=== PATIENT | male | born 1965 | race Caucasian/White ===

== ENCOUNTER → 2017-01-27 | Outpatient (CLI) | payer OTHER ==
--- NOTE | 2017-01-27 14:54 | RADIOLOGY REPORT (SQ) ---
EXAM DESCRIPTION: CHEST PA/LAT COMPLETED DATE/TIME: 01/27/2017 1:07 pm REASON FOR STUDY: NONSPECIFIC REACTION TO SKIN TEST W/O ACTIVE TUBERCULOSIS COMPARISON: 04/09/2015. EXAM PARAMETERS: NUMBER OF VIEWS: two views TECHNIQUE: Digital Frontal and Lateral radiographic views of the chest acquired. RADIATION DOSE: NA LIMITATIONS: none FINDINGS: LUNGS AND PLEURA: No opacities, masses or pneumothorax. No pleural effusion. MEDIASTINUM AND HILAR STRUCTURES: No masses or contour abnormalities. HEART AND VASCULAR STRUCTURES: Heart normal size. No evidence for failure. BONES: No acute findings. HARDWARE: None in the chest. OTHER: No other significant finding. IMPRESSION: NO SIGNIFICANT RADIOGRAPHIC FINDING IN THE CHEST. TECHNICAL DOCUMENTATION: JOB ID: [id number] [employer]- All Rights Reserved
== END ==
LOC: RAD 12:49
PROVIDERS: ATTEND Family Medicine
DX: R76.11 Nonspecific reaction to tuberculin skin test without active tuberculosis (principal)
CPT/HCPCS: 71020

== ENCOUNTER 2019-05-22 18:32 | Emergency (ER) | payer SELFPAY ==
[2019-05-22] MEDS ORDERED: ALBUTEROL SULFATE 0.083% NEB 2.5 MG/3 ML AMPUL NEB ONE (18:55)
--- NOTE | 2019-05-22 18:56 | ER Document Report ---
ED Medical Screen (RME) - General Stated Complaint: DIFFICULTY BREATHING Time Seen by Provider: 05/22/19 18:53 Primary Care Provider: BASIM RODRIGEZ PA-C [Primary Care Provider] - Follow up as needed Mode of Arrival: Medic Information source: Patient Notes: This 53-year-old male type I diabetic with history of COPD emphysema presents emergency department with increasing shortness of breath difficulty breathing for the past couple days. EMS has been to his house twice today he received a total of 3 duo nebs and Solu-Medrol. Reports he still having a hard time breathing. Reports is difficult for him to walk he becomes very short of breath. Patient works on a mobile and people's vacation homes. He reports nobody is been home there all winter. Denies exposure to COVID-19. Denies fever vomiting diarrhea. Reports he is never been hospitalized for COPD has never been intubated. Patient is tachypneic positive rhonchi O2 sats 93%. I have greeted and performed a rapid initial assessment of this patient. A comprehensive ED assessment and evaluation of the patient, analysis of test results and completion of the medical decision making process will be conducted by additional ED providers. TRAVEL OUTSIDE OF THE [place] IN LAST 30 DAYS: No - Related Data Allergies/Adverse Reactions: No Known Allergies Allergy (Verified 10/23/13 16:12) Past Medical History - Past Medical History Cardiac Medical History: Reports: Hx Hypertension Denies: Hx Coronary Artery Disease, Hx Heart Attack Pulmonary Medical History: Denies: Hx Asthma, Hx Bronchitis, Hx COPD, Hx Pneumonia Neurological Medical History: Denies: Hx Cerebrovascular Accident, Hx Seizures Endocrine Medical History: Reports: Hx Diabetes Mellitus Type 1 Musculoskeltal Medical History: Reports Hx Arthritis - HANDS, Reports Hx Musculoskeletal Trauma Psychiatric Medical History: Reports: Hx Bipolar Disorder, Hx Depression, Hx Schizoaffective Disorder Traumatic Medical History: Reports: Hx Fractures Past Surgical History: Reports: Hx Orthopedic Surgery - left ankle - Immunizations Immunizations up to date: Yes Hx Diphtheria, Pertussis, Tetanus Vaccination: Yes Doctor's Discharge - Discharge Referrals: BASIM RODRIGEZ PA-C [Primary Care Provider] - Follow up as needed
[2019-05-22 19:24] LABS: ABSOLUTE BASOPHILS # (AUTO) 0.1 10^3/uL (0.0-0.2); ABSOLUTE EOSINOPHILS # (AUTO) 0.6 10^3/uL (0.0-0.6); ABSOLUTE MONOCYTES (AUTO) 0.9 10^3/uL (0.1-1.4); ABSOLUTE NEUT (AUTO) 6.7 10^3/uL (1.7-8.2); BASOPHILS % (AUTO) 0.7 % (0-2); EOSINOPHILS % (AUTO) 5.6 % (0-6); HEMOGLOBIN 13.9 g/dL (13.5-17.0); LYMPHOCYTES % (AUTO) 19.2 % (13-45); MEAN CORPUSCULAR HEMOGLOBIN 30.9 pg (27.0-33.4); MEAN CORPUSCULAR HGB CONC 35.6 g/dL (32.0-36.0); MEAN CORPUSCULAR VOLUME 87 fl (80-97); MONOCYTES % (AUTO) 8.5 % (3-13); PLATELET COUNT 267 10^3/uL (150-450); RED BLOOD COUNT 4.49 10^6/uL (4.35-5.55); RED CELL DISTRIBUTION WIDTH 13.4 % (11.5-14.0); TOTAL CELLS COUNTED % (AUTO) 100 %; WHITE BLOOD COUNT 10.2 10^3/uL (4.0-10.5)
[2019-05-22 19:25] LABS: APPEARANCE,URINE CLEAR; BILIRUBIN,URINE NEGATIVE (NEGATIVE); COLOR,URINE STRAW; GLUCOSE, URINE NEGATIVE (NEGATIVE); KETONES,URINE NEGATIVE (NEGATIVE); LEUKOCYTE ESTERASE,URINE NEGATIVE (NEGATIVE); NITRITE,URINE NEGATIVE (NEGATIVE); PROTEIN,URINE NEGATIVE (NEGATIVE); URINE SPECIFIC GRAVITY 1.003; UROBILINOGEN,URINE NEGATIVE mg/dL (<2.0)
[2019-05-22 19:38] LABS: ALBUMIN 4.4 g/dL (3.5-5.0); ALKALINE PHOSPHATASE 101 U/L (38-126); ANION GAP 7 (5-19); ASPARTATE AMINO TRANSFERASE 38 U/L (17-59); BILIRUBIN,TOTAL 0.3 mg/dL (0.2-1.3); BLOOD UREA NITROGEN 13 mg/dL (7-20); CALCIUM 9.2 mg/dL (8.4-10.2); CARBON DIOXIDE 30 mmol/L (22-30); CHLORIDE 102 mmol/L (98-107); GLUCOSE 141 mg/dL (75-110); POTASSIUM 4.3 mmol/L (3.6-5.0); TOTAL PROTEIN 7.6 g/dL (6.3-8.2)
--- NOTE | 2019-05-22 19:46 | RADIOLOGY REPORT (SQ) ---
EXAM DESCRIPTION: CHEST SINGLE VIEW COMPLETED DATE/TIME: 05/22/2019 7:20 pm REASON FOR STUDY: Shortness of Breath COMPARISON: 01/27/2017 EXAM PARAMETERS: NUMBER OF VIEWS: One view. TECHNIQUE: Single frontal radiographic view of the chest acquired. RADIATION DOSE: NA LIMITATIONS: None. FINDINGS: LUNGS AND PLEURA: No opacities, masses or pneumothorax. No pleural effusion. MEDIASTINUM AND HILAR STRUCTURES: No masses. Contour normal. HEART AND VASCULAR STRUCTURES: Heart normal in size. Normal vasculature. BONES: No acute findings. HARDWARE: None in the chest. OTHER: No other significant finding. IMPRESSION: NO ACUTE RADIOGRAPHIC FINDING IN THE CHEST. TECHNICAL DOCUMENTATION: JOB ID: [id number] [employer]- All Rights Reserved Reading location - IP/workstation name: [email or web address]
--- NOTE | 2019-05-22 21:34 | EKG REPORT ---
SEVERITY:- NORMAL ECG - SINUS RHYTHM : Confirmed by: Abiodun Ward MD 22-May-2019 21:33:35
[2019-05-22] MEDS ORDERED: ALBUTEROL SULFATE HFA (90 MCG/PUFF) 8 GM MDI (1 MDI/ER DISP) IH ONE (21:46)
--- NOTE | 2019-05-22 21:52 | ER Document Report ---
ED Respiratory Problem - General Chief Complaint: Shortness Of Breath Stated Complaint: DIFFICULTY BREATHING Time Seen by Provider: 05/22/19 18:53 Primary Care Provider: BASIM RODRIGEZ PA-C [NO LOCAL MD] - Follow up as needed Mode of Arrival: Medic Notes: 53-year-old man presents to the emergency department history of COPD/emphysema. For the past 2 weeks he has had increasing difficulty with wheezing and breathing. EMS came to his home today and patient initially decided he would go by car, however his symptoms worsened and EMS was called. He received DuoNeb nebulizer treatments x3 and IV Solu-Medrol 125 mg. He has slight improvement. States that his inhalers are completely empty. He did work today and note that he was using his inhaler more frequently than normal. He does not have a primary care doctor and has been getting his medications from his diabetes doctor. He denies fever, productive cough or chest pain. TRAVEL OUTSIDE OF THE [place] IN LAST 30 DAYS: No - Related Data Allergies/Adverse Reactions: No Known Allergies Allergy (Verified 10/23/13 16:12) Past Medical History - General Information source: Patient - Social History Smoking Status: Unknown if Ever Smoked Family History: None Patient has suicidal ideation: No Patient has homicidal ideation: No - Past Medical History Cardiac Medical History: Reports: Hx Hypertension Denies: Hx Coronary Artery Disease, Hx Heart Attack Pulmonary Medical History: Denies: Hx Asthma, Hx Bronchitis, Hx COPD, Hx Pneumonia Neurological Medical History: Denies: Hx Cerebrovascular Accident, Hx Seizures Endocrine Medical History: Reports: Hx Diabetes Mellitus Type 1 Musculoskeletal Medical History: Reports Hx Arthritis - HANDS, Reports Hx Musculoskeletal Trauma Psychiatric Medical History: Reports: Hx Bipolar Disorder, Hx Depression, Hx Schizoaffective Disorder Traumatic Medical History: Reports: Hx Fractures Past Surgical History: Reports: Hx Orthopedic Surgery - left ankle - Immunizations Immunizations up to date: Yes Hx Diphtheria, Pertussis, Tetanus Vaccination: Yes Review of Systems - Review of Systems Notes: Constitutional: Negative for fever. HENT: Negative for sore throat. Eyes: Negative for visual changes. Cardiovascular: Negative for chest pain. Respiratory: + Shortness of breath, + wheezing.. Gastrointestinal: Negative for abdominal pain, vomiting or diarrhea. Genitourinary: Negative for dysuria. Musculoskeletal: Negative for back pain. Skin: Negative for rash. Neurological: Negative for headaches, weakness or numbness. 10 point ROS negative except as marked above and in HPI. Physical Exam - Vital signs Vitals: Resp Pulse Ox 18 94 05/22/19 18:36 05/22/19 18:36 - Notes Notes: PHYSICAL EXAMINATION: Physical Exam: General: Well-nourished well-developed 53-year-old man in no acute distress HEENT: NC/AT, pupils equal round and reactive to light, MM moist,nares clear, oropharynx clear, airway patent Neck: supple, no adenopathy, no masses. Good range of motion Lungs: Prolonged expiratory phase with end expiratory wheezing, no rales no rhonchi CVS: Regular rate and rhythm no murmur gallop or rub Abdomen: Soft, active, nontender, no masses, no hepatosplenomegaly Ext: No edema, clubbing or cyanosis. Neuro: Alert and responsive, moving all 4 extremities on command, cranial nerves intact, no focal findings Skin: Intact no open lesions, no rash PSYCH: Normal mood, normal affect. Course - Re-evaluation Re-evalutation: 05/22/19 21:53 Patient notes that he is feeling much better after the nebulizer treatment and steroids. He is on a sliding scale insulin at home, he is out of his inhalers and also requesting a DuoNeb for his nebulizer at home. I have asked him to follow-up with his primary doctor, patient notes that he has no insurance and cannot afford to see a primary care doctor. I have given him information regarding the [facility]. - Vital Signs Vital signs: Temp Pulse Resp BP Pulse Ox 97.7 F 15 155/79 H 91 L 05/22/19 18:59 05/22/19 21:01 05/22/19 20:00 05/22/19 21:01 - Laboratory Result Diagrams: 05/22/19 19:01 05/22/19 19:01 Laboratory results interpreted by me: 05/22/19 19:01 Glucose 141 H 05/22/19 21:54 I have reviewed laboratory data and used this information for the treatment decisions regarding the patient. - Diagnostic Test Radiology reviewed: Pending, Image reviewed, Reports reviewed - This x-ray: No acute cardiopulmonary findings. - EKG Interpretation by Me EKG shows normal: Sinus rhythm - Rate 89, no acute ST or T wave abnormalities, normal EKG. Discharge - Discharge Clinical Impression: COPD with exacerbation, Diffuse wheezing Condition: Good Disposition: HOME, SELF-CARE Instructions: Chronic Obstructive Lung Disease ([facility]) Additional Instructions: You were treated for COPD exacerbation in the emergency department, you given a prescription for albuterol inhaler and DuoNeb nebulizer solution. He is follow- up with your doctor regarding COPD. If your symptoms worsen or if you have other concerns you may return to the emergency department. HOME CARE INSTRUCTIONS & INFORMATION: Thank you for choosing us for your medical needs. We hope you're satisfied with the care you received. After you leave, you must properly care for your problem and, at the same time, observe its progress. Any condition can change. Some illnesses can change rapidly over hours or days. If your condition worsens, return to the Emergency Department or see your physician promptly. ABOUT YOUR X-RAYS AND EKG'S: If you had an EKG or X-rays taken, they have been read by the Emergency Physician. The X-rays and EKG's will also be read by a Radiologist or Civil Service Worker within 24 hours. If discrepancies are noted, you will be notified by telephone. Please be certain the ED has a correct telephone number & address where you can be reached. Also, realize that some fractures or abnormalities do not show up on initial X-rays. If your symptoms continue, see your physician. ABOUT YOUR LABORATORY TEST: If you had laboratory tests, the results have been reviewed by the Emergency Physician. Some test results (for example cultures) may not be available for several days. You will be contacted if any test result shows you need additional treatment. Please be certain the ED has a correct telephone number and address where you can be reached. ABOUT YOUR MEDICATIONS: You will receive instructions on how to take your medicine on the prescription label you receive. Additional information may be provided by the Pharmacy. If you have questions afterwards, call the ED for clarification or further instructions. Some prescribed medications may cause drowsiness. Do not perform tasks such as driving a car or operating machinery without consulting your Pharmacist. If you feel you need a refill of pain medication, your condition will need re-evaluation. Please do not call for a refill of any medication. ABOUT YOUR SIGNATURE: Signature of this document acknowledges to followin. Understanding that you received emergency treatment and that you may be released before al medical problems are known or treated. Please be certain the ED has a correct phone number & address where you can be reached. 2. Acknowledgement that you will arrange for follow-up care as recommended. 3. Authorization for the Emergency Physician to provide information to your follow-up Physician in order to maximize your care. AT ANY TIME, IF YOUR SYMPTOMS CHANGE SIGNIFICANTLY OR WORSEN OR YOU DEVELOP NEW SYMPTOMS, RETURN TO THE EMERGENCY DEPARTMENT IMMEDIATELY FOR RE-EVALUATION. OUR GOAL IS TO PROVIDE EXCELLENT MEDICAL CARE! WE HOPE THAT WE HAVE MET YOUR EXPECTATIONS DURING YOUR EMERGENCY DEPARTMENT VISIT AND THAT YOU FEEL YOU HAVE RECEIVED EXCELLENT CARE! Prescriptions: Ipratropium/Albuterol Sulfate [Duoneb 3 ml Ampul] 3 ml NEB NOW 14 Days #60 vial.neb Albuterol Sulfate [Proair HFA Inhalation Aerosol 8.5 gm MDI] 2 puff IH Q4H PRN #1 mdi PRN Reason: Referrals: BASIM RODRIGEZ PA-C [NO LOCAL MD] - Follow up as needed [facility] [Provider Group] - Follow up as needed
[2019-05-22 22:12] VITALS: BP 156/78
== END 2019-05-22 22:11 | disposition home or self-care (01) ==
LOC: ER 18:32
DX: J44.1 Chronic obstructive pulmonary disease with (acute) exacerbation (principal); R06.00 Dyspnea, unspecified; I10 Essential (primary) hypertension
CPT/HCPCS: 93005; 94640; 99285; 36415; 85025; 80053; 81001; 83880; 71045; 93010; J3490

== ENCOUNTER 2019-08-21 14:14 | Inpatient (IN) | payer SELFPAY ==
[2019-08-21 14:44] LABS: ABSOLUTE BASOPHILS # (AUTO) 0.1 10^3/uL (0.0-0.2); ABSOLUTE EOSINOPHILS # (AUTO) 0.1 10^3/uL (0.0-0.6); ABSOLUTE LYMPHOCYTES (AUTO) 1.6 10^3/uL (0.5-4.7); ABSOLUTE MONOCYTES (AUTO) 0.5 10^3/uL (0.1-1.4); ABSOLUTE NEUT (AUTO) 9.4 10^3/uL (1.7-8.2); BASOPHILS % (AUTO) 0.5 % (0-2); EOSINOPHILS % (AUTO) 1.3 % (0-6); HEMATOCRIT 39.8 % (37.9-51.0); HEMOGLOBIN 13.7 g/dL (13.5-17.0); LYMPHOCYTES % (AUTO) 13.4 % (13-45); MEAN CORPUSCULAR HGB CONC 34.4 g/dL (32.0-36.0); MEAN CORPUSCULAR VOLUME 90 fl (80-97); MONOCYTES % (AUTO) 4.2 % (3-13); PLATELET COUNT 233 10^3/uL (150-450); RED BLOOD COUNT 4.42 10^6/uL (4.35-5.55); SEGMENTED NEUTROPHILS % (AUTO) 80.6 % (42-78); TOTAL CELLS COUNTED % (AUTO) 100 %; WHITE BLOOD COUNT 11.7 10^3/uL (4.0-10.5)
[2019-08-21 15:03] LABS: ALBUMIN 4.2 g/dL (3.5-5.0); ALKALINE PHOSPHATASE 91 U/L (38-126); ANION GAP 7 (5-19); ASPARTATE AMINO TRANSFERASE 57 U/L (17-59); BILIRUBIN,TOTAL 0.4 mg/dL (0.2-1.3); BLOOD UREA NITROGEN 34 mg/dL (7-20); CALCIUM 9.3 mg/dL (8.4-10.2); CARBON DIOXIDE 27 mmol/L (22-30); CHLORIDE 98 mmol/L (98-107); GLUCOSE 312 mg/dL (75-110); TOTAL PROTEIN 7.1 g/dL (6.3-8.2)
[2019-08-21 15:27] LABS: INTERNATIONAL RATION (INR) 0.84; PROTHROMBIN TIME 11.5 SEC (11.4-15.4)
[2019-08-21 15:28] LABS: PARTIAL THROMBOPLASTIN TIME 25.2 SEC (23.5-35.8)
--- NOTE | 2019-08-21 15:34 | RADIOLOGY REPORT (SQ) ---
EXAM DESCRIPTION: CHEST SINGLE VIEW IMAGES COMPLETED DATE/TIME: 08/21/2019 3:19 pm REASON FOR STUDY: SOB COMPARISON: AP view of the chest from 05/22/2019. EXAM PARAMETERS: NUMBER OF VIEWS: One view. TECHNIQUE: An AP view of the chest was obtained. RADIATION DOSE: NA LIMITATIONS: None. FINDINGS: LUNGS AND PLEURA: No consolidation, pleural effusion or pneumothorax. MEDIASTINUM AND HILAR STRUCTURES: No mediastinal or hilar contour abnormality. HEART AND VASCULAR STRUCTURES: The cardiac silhouette and pulmonary vasculature are within normal pizarro its. BONES: No acute findings. HARDWARE: None in the chest. OTHER: No other finding. IMPRESSION: No acute cardiopulmonary process. TECHNICAL DOCUMENTATION: JOB ID: [id number] 2010 [employer]- All Rights Reserved Reading location - IP/workstation name: [email or web address]
[2019-08-21] MEDS ORDERED: IPRATROPIUM/ALBUTEROL 0.5-2.5 MG/3 ML AMPUL NEB ONE (15:41)
--- NOTE | 2019-08-21 15:47 | ER Document Report ---
ED General - General Chief Complaint: COPD Exacerbation Stated Complaint: COPD EXACERBATION Time Seen by Provider: 08/21/19 14:41 Mode of Arrival: Ambulatory Information source: Patient Notes: Patient is a 53-year-old male presents the emergency department with concern for possible COPD exacerbation. Patient states he has been having increasing shortness of breath over the last few days. He denies any swelling. He denies any cough or fever. He does report being diagnosed with COPD a few months ago, he was hospitalized about 1 month ago at [facility] for a COPD exacerbation. Patient was also complaining of abdominal swelling that he states started about a month ago. He reports having normal bowel movements. He denies the use of any alcohol. EMS gave 2 duo nebs and 125 mg of Solu-Medrol IV. Patient reports he is not feeling any better. TRAVEL OUTSIDE OF THE [place] IN LAST 30 DAYS: No - Related Data Allergies/Adverse Reactions: No Known Allergies Allergy (Verified 08/21/19 14:30) Home Medications: gabapentin, albuterol, lsinopril, cortizone shots, prednisone, citalopram. Past Medical History - General Information source: Patient - Social History Smoking Status: Former Smoker Frequency of alcohol use: None - Former Drug Abuse: None Family History: None Patient has homicidal ideation: No - Past Medical History Cardiac Medical History: Reports: Hx Hypertension Denies: Hx Coronary Artery Disease, Hx Heart Attack Pulmonary Medical History: Reports: Hx COPD Denies: Hx Asthma, Hx Bronchitis, Hx Pneumonia Neurological Medical History: Denies: Hx Cerebrovascular Accident, Hx Seizures Endocrine Medical History: Reports: Hx Diabetes Mellitus Type 1 Musculoskeletal Medical History: Reports Hx Arthritis - HANDS, Reports Hx Musculoskeletal Trauma Psychiatric Medical History: Reports: Hx Bipolar Disorder, Hx Depression, Hx Schizoaffective Disorder Traumatic Medical History: Reports: Hx Fractures Past Surgical History: Reports: Hx Orthopedic Surgery - left ankle - Immunizations Immunizations up to date: Yes Hx Diphtheria, Pertussis, Tetanus Vaccination: Yes Review of Systems - Review of Systems Constitutional: denies: Chills, Fever EENT: No symptoms reported Cardiovascular: Dyspnea Respiratory: Cough - Patient denies cough but he is coughing during my exam, Short of breath Gastrointestinal: Abdomen distended Genitourinary: No symptoms reported Male Genitourinary: No symptoms reported Musculoskeletal: No symptoms reported Skin: No symptoms reported Hematologic/Lymphatic: No symptoms reported Neurological/Psychological: No symptoms reported -: Yes All other systems reviewed and negative Physical Exam - Vital signs Vitals: Resp Pulse Ox 20 97 08/21/19 14:22 08/21/19 14:22 - Notes Notes: PHYSICAL EXAMINATION: GENERAL: Well-appearing, well-nourished and in no acute distress. HEAD: Atraumatic, normocephalic. EYES: Pupils equal round and reactive to light, extraocular movements intact, sc erika anicteric, conjunctiva are normal. ENT: Nares patent, oropharynx clear without exudates. Moist mucous membranes. NECK: Normal range of motion, supple without lymphadenopathy LUNGS: Breath sounds clear to auscultation bilaterally and equal. No wheezes rales or rhonchi. HEART: S1-S2 present, tachycardic. ABDOMEN: Large, firm, round, distended abdomen. Musculoskeletal: Normal range of motion, no pitting or edema. No cyanosis. NEUROLOGICAL: Cranial nerves grossly intact. Normal speech. Normal sensory, motor exams PSYCH: Normal mood, normal affect. SKIN: Warm, Dry, normal turgor, no rashes or lesions noted. Course - Re-evaluation Re-evalutation: 08/21/19 15:43 Patient appears well, nontoxic, no acute distress noted. He is not tachypneic and not hypoxic. He is alert, oriented, speaking in full and complete sentences. He does have diminished lung sounds however he does not appear to be in any acute distress. He does have a large round swollen abdomen that is very tight and firm. He states this is been evolving over the last month. He has never been diagnosed with ascites or any liver problems. He denies any current alcohol use, states he quit drinking years ago. EKG reviewed by me shows a s inus tachycardia, rate 102, QTc 412, no ST segment elevations or depressions to suggest ischemia. He has already had 2 albuterol treatments at home, two albuterol/Atrovent treatments in the ambulance and 125 mg of Solu-Medrol IV. I will give him another DuoNeb and plan to get a CT abdomen pelvis to evaluate the abdominal swelling. CT abdomen pelvis unremarkable, labs reassuring. Patient continues to have dyspnea on exertion however whenever he is resting in the room he is not hypoxic or tachypneic. He is mildly tachycardic due to the breathing treatments that were given earlier. 08/21/19 20:07 Nursing staff has ambulated the patient with a pulse ox. Patient did maintain oxygen saturation in the low 90s however he was very tachypneic and short of breath with any exertion. I called and spoke with the night hospitalist, Dr. Curiel who graciously agreed to admit the patient for COPD exacerbation. - Vital Signs Vital signs: Temp Pulse Resp BP Pulse Ox 98.7 F 105 H 24 H 141/64 H 95 08/21/19 14:30 08/21/19 14:30 08/21/19 17:00 08/21/19 15:01 08/21/19 18:00 - Laboratory Result Diagrams: 08/21/19 14:25 08/21/19 14:25 Laboratory results interpreted by me: 08/21/19 08/21/19 08/21/19 14:25 14:25 15:32 WBC 11.7 H Absolute Neuts (auto) 9.4 H Seg Neutrophils % 80.6 H VBG pH 7.43 H VBG pCO2 34.2 L Sodium 132.4 L BUN 34 H Glucose 312 H ALT 94 H Discharge - Discharge Clinical Impression: COPD (chronic obstructive pulmonary disease) Qualifiers: COPD type: unspecified COPD Qualified Code(s): J44.9 - Chronic obstructive pulmonary disease, unspecified Condition: Stable Disposition: ADMITTED INPATIENT Admitting Provider: Veena (Hospitalist) Unit Admitted: Medical Floor
[2019-08-21 15:53] LABS: VENOUS BLOOD BASE EXCESS -1.3 mmol/L; VENOUS BLOOD HCO3 22.2 mmol/L (20-32); VENOUS BLOOD PCO2 34.2 mmHg (35-63); VENOUS BLOOD PH 7.43 (7.30-7.42)
--- NOTE | 2019-08-21 16:34 | RADIOLOGY REPORT (SQ) ---
EXAM DESCRIPTION: CT ABD/PELVIS WITH IV ONLY IMAGES COMPLETED DATE/TIME: 08/21/2019 4:04 pm REASON FOR STUDY: abdominal swelling NO hx of ascites COMPARISON: CT of the abdomen and pelvis without contrast from 03/23/2013. TECHNIQUE: CT scan of the abdomen and pelvis performed using helical scanning technique with dynamic intravenous contrast injection. No oral contrast. Images reviewed with lung, soft tissue, and bone windows. Reconstructed coronal and sagittal MPR images reviewed. Delayed images for evaluation of the urinary system also acquired. All images stored on PACS. All CT scanners at this facility use dose modulation, iterative reconstruction, and/or weight based d osing when appropriate to reduce radiation dose to as low as reasonably achievable (ALARA). [facility]: Dose Right [facility]: CareDose [facility]: Dose Right [facility]: Teradose 4D [facility]: EndoDex CONTRAST TYPE AND DOSE: 100 mL Omnipaque 350- low osmolar. RENAL FUNCTION: Creatinine 1.01 milligrams/deciliter. RADIATION DOSE: CT Rad equipment meets quality standard of care and radiation dose reduction techniq ues were employed. CTDIvol: 16.4 - 19.7 mGy. DLP: 2140 mGy-cm. LIMITATIONS: None. FINDINGS: LOWER CHEST: No acute findings. LIVER: The morphology of the liver is noncirrhotic. The portal veins are patent. There is no hepati c mass. SPLEEN: No splenomegaly or splenic mass. PANCREAS: No acute gross abnormality of the pancreas. GALLBLADDER: No abnormality that is apparent on CT. ADRENAL GLANDS: No mass or asymmetry. RIGHT KIDNEY AND URETER: No solid mass, hydronephrosis, nephrolithiasis, hydroureter or ureterolithia sis. LEFT KIDNEY AND URETER: No solid mass, hydronephrosis, nephrolithiasis, hydroureter or ureterolithias is. AORTA AND VESSELS: No aneurysm or dissection of the abdominal aorta. RETROPERITONEUM: No retroperitoneal adenopathy, hemorrhage or mass. BOWEL AND PERITONEAL CAVITY: No bowel obstruction, bowel wall thickening or pericolonic/ perienteric inflammation. No mesenteric adenopathy, free intraperitoneal fluid or mesenteric/ omental inflammati on. APPENDIX: Normal. PELVIS: The prostate gland measures 4.6 cm in transverse diameter. There is no urinary bladder mass. ABDOMINAL WALL: There is a subcutaneous lipomatous lesion posterior to the spinous process of the L2 vertebra that measures 3.7 x 2 cm. BONES: No acute findings. OTHER: No other finding. IMPRESSION: No acute intra-abdominal abnormality. No ascites. TECHNICAL DOCUMENTATION: JOB ID: [id number] Quality ID # [id number]: Final reports with documentation of one or more dose reduction techniques (e.g., Au tomated exposure control, adjustment of the mA and/or kV according to patient size, use of iterative reconstruction technique) 2010 [employer]- All Rights Reserved Reading location - IP/workstation name: [email or web address]
[2019-08-21] MEDS ORDERED: MAG HYDROX/AL HYDROX/SIMETH SUSP 30 ML UDCUP PO PRN (20:41)
[2019-08-21] MEDS ORDERED: PROMETHAZINE HCL INJ 25 MG/1 ML VIAL IV PRN (20:41)
[2019-08-21] MEDS ORDERED: RINGERS SOLUTION,LACTATED 1,000 ML IV PRN (20:41)
[2019-08-21] MEDS ORDERED: MAGNESIUM HYDROXIDE SUSP 30 ML UDCUP PO PRN (20:41)
[2019-08-21] MEDS ORDERED: HYDRALAZINE HCL INJ/PF 20 MG/1 ML SDV IV PRN (20:47)
[2019-08-21] MEDS ORDERED: NICOTINE 21 MG/24 HR PATCH.TD24 TD PRN (20:47)
[2019-08-21] MEDS ORDERED: GUAIFENESIN SYRP 200 MG/10 ML UDC PO PRN (20:47)
[2019-08-21] MEDS ORDERED: ACETAMINOPHEN 325 MG TABLET PO PRN (20:47)
[2019-08-21] MEDS ORDERED: LORAZEPAM INJ 2 MG/1 ML VIAL IV PRN (20:47)
[2019-08-21] MEDS ORDERED: DEXTROSE 50%-WATER 25 GM/50 ML DISP.SYRIN IV PRN ×2 (20:55)
[2019-08-21] MEDS ORDERED: GLUCAGON,HUMAN RECOMB 1 MG INJ IM PRN (20:55)
[2019-08-21] MEDS ORDERED: DEXTROSE 40% GEL 15 GM TUBE PO PRN (20:55)
[2019-08-21] MEDS: METHYLPREDNISOLONE INJ 40 MG/1 ML SDV IV SCH (22:00)
[2019-08-21] MEDS: INSULIN LISPRO 100 UNIT/ML 3 ML VIAL SUBCUT SCH (22:26)
[2019-08-21] MEDS: INSULIN GLARGINE,HUM.REC.ANLOG 1,000 UNIT/10 ML VIAL SUBCUT SCH (22:27)
[2019-08-21] MEDS: HEPARIN SOD (PORCINE) 5,000 UNIT/ML 1 ML VIAL SUBCUT SCH (22:28)
[2019-08-21] MEDS: FAMOTIDINE 20 MG TABLET PO SCH (22:28)
[2019-08-21] MEDS: MORPHINE SULFATE 10 MG/ML INJ IV PRN (23:30)
--- NOTE | 2019-08-21 23:36 | PDOC H&P ---
History of Present Illness Admission Date/PCP: 08/21/19 20:13 No local PCP Patient complains of: Dyspnea History of Present Illness: SAROJ PEREZ is a 53 year old male who presented emergency room with a 3- day history of worsened dyspnea. He admits progressively worsening constant dyspnea at rest, exacerbated by any exertion, over the last 3 days, becoming severe today. He denies other associated or accompanying signs and symptoms. He admits prior similar episodes secondary to his chronic obstructive pulmonary disease. He has not identified any additional aggravating or ameliorating factors for his dyspnea. In the emergency room he was found to have acute respiratory failure with hypoxia requiring supplemental oxygen to maintain an adequate oxygen saturation. His laboratory and radiographic evaluation was unremarkable with the exception of a white blood count of 11,700, a blood sugar of 312 and an isolated mildly elevated ALT. He received numerous nebulizer therapy treatments and intravenous steroids with mild improvement but was still unable to tolerate minimal exertion without supplemental oxygen. He was subsequently admitted to the hospital for further evaluation and treatment. Past Medical History Cardiac Medical History: Reports: Hypertension, Peripheral Vascular Disease Denies: Atrial Fibrillation, Congestive Heart Failure, Coronary Artery Disease, Myocardial Infarction, Hyperlipidema Pulmonary Medical History: Reports: Asthma, Chronic Obstructive Pulmonary Disease (COPD) - Has been on chronic prednisone 40mg daily X 2 months, Respiratory Failure Denies: Bronchitis, Pneumonia EENT Medical History: Denies: Cataracts, Ears - Hearing aids Neurological Medical History: Reports: Other - Peripheral neuropathy Denies: Hemorrhagic CVA, Ischemic CVA, Seizures Endocrine Medical History: Reports: Diabetes Mellitus Type 2 Denies: Diabetes Mellitus Type 1, Hyperthyroidism, Hypothyroidism, Obesity Renal/ Medical History: Denies: Chronic Kidney Disease, Nephrolithiasis Malignancy Medical History: Reports: None GI Medical History: Denies: Cirrhosis, Crohn's Disease, Gastroesophageal Reflux Disease, Hepatitis, Peptic Ulcer Disease, Ulcerative Colitis Musculoskeltal Medical History: Reports: Arthritis - HANDS, Other - Degenerative lumbar disc disease, spondylosis, chronic low back pain Denies: Gout Skin Medical History: Denies: Eczema, Psoriasis Psychiatric Medical History: Reports: Bipolar Disorder, Depression, General Anxiety Disorder, Schizoaffective Disorder, Tobacco Dependency Denies: Alcohol Dependency, Substance Abuse Traumatic Medical History: Reports: None Hematology: Denies: Anemia, Bleeding Tendencies Infectious Medical History: Reports: None Past Surgical History Past Surgical History: Reports: Orthopedic Surgery - left ankle Social History Information Source: Patient Lives with: Spouse/Significant other Smoking Status: Former Smoker - States he quit 2 months ago Electronic Cigarette use?: No Frequency of Alcohol Use: None Hx Recreational Drug Use: No Drugs: None Hx Prescription Drug Abuse: No - Advance Directive Resuscitation Status: Full Code Surrogate healthcare decision maker:: Jessica Perez Family History Family History: denies: CAD, DM, Hypertension, Malignancy Parental Family History Reviewed: Yes Children Family History Reviewed: No Sibling(s) Family History Reviewed.: Yes Medication/Allergy Home Medications: Insulin Aspart [Novolog Flexpen] 9 unit SUBCUT MEALS 09/19/12 Clonazepam [Klonopin 1 Mg Tablet] 2 mg PO BID 12/27/12 Citalopram Hydrobromide [Celexa 20 mg Tablet] 20 mg PO DAILY 08/21/19 Gabapentin [Neurontin 400 mg Capsule] 400 mg PO TID 08/21/19 Insulin Glargine,Hum.rec.anlog [Basaglar Kwikpen U-100] 62 units SUBCUT DAILY 08/21/19 Ipratropium/Albuterol Sulfate [Duoneb 3 ml Ampul] 3 ml NEB [id number] PRN 08/21/19 Prednisone [Deltasone 20 mg Tablet] 40 mg PO BID 08/21/19 Allergies/Adverse Reactions: No Known Allergies Allergy (Verified 08/21/19 14:30) Review of Systems Constitutional: ABSENT: chills, fever(s) Eyes: ABSENT: visual disturbances, other - Eye pain Ears: ABSENT: hearing changes, other - Ear pain Nose, Mouth, and Throat: ABSENT: headache(s), sore throat Cardiovascular: PRESENT: as per HPI, dyspnea on exertion. ABSENT: chest pain, edema, orthropnea, palpitations Respiratory: PRESENT: as per HPI, dyspnea. ABSENT: cough Gastrointestinal: PRESENT: bloating - X1 month. ABSENT: abdominal pain, constipation, diarrhea, nausea, vomiting Genitourinary: ABSENT: dysuria, hematuria Musculoskeletal: PRESENT: back pain - Chronic. ABSENT: joint swelling, muscle weakness Integumentary: ABSENT: pruritus, rash Neurological: PRESENT: numbness - Chronic peripheral neuropathy, paresthesias - Chronic peripheral neuropathy. ABSENT: confusion, convulsions, focal weakness, memory loss, syncope Psychiatric: ABSENT: anxiety, depression Endocrine: ABSENT: cold intolerance, heat intolerance Hematologic/Lymphatic: ABSENT: easy bleeding, easy bruising Allergic/Immunologic: ABSENT: seasonal rhinorrhea Physical Exam Vital Signs: Temp Pulse Resp BP Pulse Ox 98.7 F 105 H 24 H 141/64 H 95 08/21/19 14:30 08/21/19 14:30 08/21/19 17:00 08/21/19 15:01 08/21/19 18:00 Intake & Output 08/19/19 08/20/19 08/21/19 23:59 23:59 23:59 Weight 90.718 kg General appearance: PRESENT: no acute distress, cooperative, other - On supplemental oxygen via nasal cannula at the time of my evaluation, Cushingoid features of fernández facies and abdominal prominence are noted. Head exam: PRESENT: atraumatic, normocephalic Eye exam: PRESENT: conjunctiva pink. ABSENT: conjunctival injection, scleral icterus Ear exam: PRESENT: normal external ear exam. ABSENT: bleeding, drainage Mouth exam: PRESENT: dry mucosa, neck supple Neck exam: ABSENT: thyromegaly, tracheal deviation Respiratory exam: PRESENT: decreased breath sounds - Mildly decreased breath sounds noted throughout all bustamante, prolonged expiratory phas - Mildly prolonged expiratory phase noted throughout all bustamante, wheezes - Expiratory wheezes present throughout all bustamante, other - Pulmonary function restricted by cushingoid abdomen.. ABSENT: symmetrical Cardiovascular exam: PRESENT: RRR. ABSENT: clicks, gallop, rubs Pulses: PRESENT: normal radial pulses, normal dorsalis pedis pul Vascular exam: PRESENT: normal capillary refill. ABSENT: pallor GI/Abdominal exam: PRESENT: normal bowel sounds, soft Rectal exam: PRESENT: deferred Extremities exam: ABSENT: joint swelling, pedal edema Musculoskeletal exam: ABSENT: deformity, dislocation Neurological exam: PRESENT: alert, oriented to person, oriented to place, oriented to time, oriented to situation, CN II-XII grossly intact. ABSENT: motor sensory deficit Psychiatric exam: PRESENT: appropriate affect, normal mood Skin exam: PRESENT: dry, intact, warm. ABSENT: jaundice, rash, urticaria Results Laboratory Results: 08/21/19 14:25 08/21/19 14:25 08/21/19 08/21/19 08/21/19 14:25 14:25 15:32 WBC 11.7 H RBC 4.42 Hgb 13.7 Hct 39.8 MCV 90 MCH 31.0 MCHC 34.4 RDW 14.0 Plt Count 233 Seg Neutrophils % 80.6 H VBG pH 7.43 H VBG pCO2 34.2 L VBG HCO3 22.2 VBG Base Excess -1.3 Sodium 132.4 L Potassium 5.0 Chloride 98 Carbon Dioxide 27 Anion Gap 7 BUN 34 H Creatinine 1.01 Est GFR ( Amer) > 60 Glucose 312 H Calcium 9.3 Total Bilirubin 0.4 AST 57 Alkaline Phosphatase 91 Total Protein 7.1 Albumin 4.2 08/21/19 14:25 NT-Pro-B Natriuret Pep 15 Impressions: Chest X-Ray 08/21/19 14:29 IMPRESSION: No acute cardiopulmonary process. Abdomen/Pelvis CT 08/21/19 15:27 IMPRESSION: No acute intra-abdominal abnormality. No ascites. Assessment and Plan - Diagnosis (1) Acute exacerbation of chronic obstructive pulmonary disease Is this a current diagnosis for this admission?: Yes (2) Acute respiratory failure with hypoxia Is this a current diagnosis for this admission?: Yes (3) Hypertension Qualifiers: Hypertension type: essential hypertension Qualified Code(s): I10 - Essential (primary) hypertension Is this a current diagnosis for this admission?: Yes (4) Cushingoid side effect of steroids Is this a current diagnosis for this admission?: Yes (5) Diabetes mellitus type 2 in nonobese Is this a current diagnosis for this admission?: Yes - Plan Summary Summary: Patient will be admitted to the medical floor where he will receive routine supportive and symptomatic cares. He will be treated with aggressive pulmonary toilet utilizing nebulized Xopenex, Atrovent and Pulmicort. He will receive IV Solu-Medrol 40 mg every 6 hours x3 doses to complete an initial burst dose treatment. He will receive Levaquin 750 mg p.o. daily. He will receive supplemental oxygen as needed to maintain an adequate oxygen saturation, with the potential use of noninvasive airway pressure support devices if required. Before meals and at bedtime Accu-Cheks will be obtained and sliding scale insulin will be used to cover hyperglycemia with a hypoglycemic protocol in place. He will receive Ativan 1 mg IV every 4 hours as needed for anxiety or restlessness. He will receive morphine sulfate 2 to 4 mg IV every 2 hours on an as-needed basis for control of pain. His usual medications will be resumed, as appropriate, when his medication list has been verified and reconciled. A steroid taper will be prescribed according to the desires of the daytime hospitalist. - Time Time Spent with patient: 15-24 minutes Medications reviewed and adjusted accordingly: Yes Anticipated discharge: Home - Inpatient Certification Based on my medical assessment, after consideration of the patient's comorbidities, presenting symptoms, or acuity I expect that the services needed warrant INPATIENT care.: Yes I certify that my determination is in accordance with my understanding of Medicare's requirements for reasonable and necessary INPATIENT services [42 CFR 412.3e].: Yes Medical Necessity: Need Close Monitoring Due to Risk of Patient Decompensation, Need for Nebulizer Therapy and Monitoring of Response, Risk of Complication if Not Cared For in Hospital
--- NOTE | 2019-08-22 00:26 | EKG REPORT ---
SEVERITY:- OTHERWISE NORMAL ECG - SINUS TACHYCARDIA : Confirmed by: Hayley Levi 22-Aug-2019 00:25:03
[2019-08-22] MEDS: LEVALBUTEROL HCL NEB 1.25 MG/3 ML AMPUL NEB SCH ×3 (00:34→16:15)
[2019-08-22 00:35] LABS: APPEARANCE,URINE CLEAR; BILIRUBIN,URINE NEGATIVE (NEGATIVE); COLOR,URINE STRAW; GLUCOSE, URINE >=500 mg/dL (NEGATIVE); KETONES,URINE NEGATIVE (NEGATIVE); PROTEIN,URINE NEGATIVE (NEGATIVE); URINE SPECIFIC GRAVITY 1.022; UROBILINOGEN,URINE NEGATIVE mg/dL (<2.0)
[2019-08-22] MEDS: IPRATROPIUM BROMIDE 0.02% NEB 0.5 MG/2.5 ML AMPUL NEB SCH ×3 (00:35→16:15)
[2019-08-22] MEDS: METHYLPREDNISOLONE INJ 40 MG/1 ML SDV IV SCH ×2 (03:55→10:15)
[2019-08-22] MEDS: MORPHINE SULFATE 10 MG/ML INJ IV PRN ×4 (06:31→22:51)
[2019-08-22] MEDS: HEPARIN SOD (PORCINE) 5,000 UNIT/ML 1 ML VIAL SUBCUT SCH ×3 (06:32→22:50)
[2019-08-22 06:40] LABS: HEMATOCRIT 40.1 % (37.9-51.0); HEMOGLOBIN 13.5 g/dL (13.5-17.0); MEAN CORPUSCULAR HEMOGLOBIN 30.3 pg (27.0-33.4); MEAN CORPUSCULAR HGB CONC 33.7 g/dL (32.0-36.0); MEAN CORPUSCULAR VOLUME 90 fl (80-97); PLATELET COUNT 223 10^3/uL (150-450); RED BLOOD COUNT 4.47 10^6/uL (4.35-5.55); WHITE BLOOD COUNT 18.4 10^3/uL (4.0-10.5)
[2019-08-22 07:02] LABS: ALBUMIN 4.3 g/dL (3.5-5.0); ALKALINE PHOSPHATASE 77 U/L (38-126); ANION GAP 9 (5-19); ASPARTATE AMINO TRANSFERASE 38 U/L (17-59); BILIRUBIN,TOTAL 0.5 mg/dL (0.2-1.3); BLOOD UREA NITROGEN 29 mg/dL (7-20); CALCIUM 9.7 mg/dL (8.4-10.2); CARBON DIOXIDE 29 mmol/L (22-30); CHLORIDE 99 mmol/L (98-107); CHOLESTEROL 259.18 mg/dL (0-200); GLUCOSE 237 mg/dL (75-110); POTASSIUM 4.7 mmol/L (3.6-5.0); TOTAL PROTEIN 7.3 g/dL (6.3-8.2); TRIGLYCERIDES 93 mg/dL (<150)
[2019-08-22 07:13] LABS: DIRECT LDL 143 mg/dL (<100)
[2019-08-22 07:15] LABS: FREE T3 3.53 pg/mL (2.77-5.27)
[2019-08-22 07:29] LABS: THYROID STIMULATING HORMONE 0.45 uIU/mL (0.47-4.68)
[2019-08-22] MEDS: INSULIN LISPRO 100 UNIT/ML 3 ML VIAL SUBCUT SCH ×7 (07:47→22:52)
[2019-08-22] MEDS: BUDESONIDE NEB 0.5 MG/2 ML AMPUL NEB SCH ×2 (08:24→20:37)
[2019-08-22] MEDS: FAMOTIDINE 20 MG TABLET PO SCH ×2 (10:12→22:49)
[2019-08-22] MEDS: DOCUSATE SODIUM 100 MG CAPSULE PO SCH ×2 (10:12→17:36)
[2019-08-22] MEDS: CLONAZEPAM 1 MG TABLET PO SCH ×2 (10:12→17:36)
[2019-08-22] MEDS: GABAPENTIN 400 MG CAPSULE PO SCH ×3 (10:12→17:36)
[2019-08-22] MEDS: CITALOPRAM HYDROBROMIDE 20 MG TABLET PO SCH (10:13)
--- NOTE | 2019-08-22 16:08 | PDOC PROGRESS REPORT ---
Subjective Progress Note for:: 08/22/19 Subjective:: No adverse events overnight. No new complaints. Breathing has improved a little bit but he still feels a little short of breath at rest. He said he is going to apply for disability now. No fevers. His oxygen has been turned down to 2 L. Reason For Visit: ACUTE RESPIRATORY FAILURE WITH HYPOXIA, ACUTE Physical Exam Vital Signs: Temp Pulse Resp BP Pulse Ox 97.6 F 96 16 150/76 H 96 08/22/19 11:13 08/22/19 11:13 08/22/19 11:13 08/22/19 11:13 08/22/19 11:13 Intake & Output 08/21/19 08/22/19 08/23/19 06:59 06:59 06:59 Intake Total 520 240 Output Total 600 Balance -80 240 Weight 90.1 kg General appearance: PRESENT: no acute distress, cooperative, disheveled, obese Respiratory exam: PRESENT: decreased breath sounds, prolonged expiratory phas, rhonchi, symmetrical. ABSENT: accessory muscle use, crackles, tachypnea, unlabored, wheezes Cardiovascular exam: PRESENT: RRR, +S1, +S2 Pulses: PRESENT: normal carotid pulses Vascular exam: PRESENT: normal capillary refill GI/Abdominal exam: PRESENT: normal bowel sounds, soft. ABSENT: distended, guarding, rebound, tenderness Extremities exam: ABSENT: clubbing, pedal edema Musculoskeletal exam: PRESENT: normal inspection. ABSENT: deformity Neurological exam: PRESENT: alert, awake, oriented to person, oriented to place, oriented to situation Psychiatric exam: PRESENT: appropriate affect, normal mood Skin exam: PRESENT: dry, warm Results Laboratory Results: 08/22/19 06:11 08/22/19 06:11 08/22/19 08/22/19 08/22/19 00:16 06:11 06:11 WBC 18.4 H RBC 4.47 Hgb 13.5 Hct 40.1 MCV 90 MCH 30.3 MCHC 33.7 RDW 14.0 Plt Count 223 Sodium 137.4 Potassium 4.7 Chloride 99 Carbon Dioxide 29 Anion Gap 9 BUN 29 H Creatinine 0.74 Est GFR ( Amer) > 60 Glucose 237 H Calcium 9.7 Magnesium 1.9 Total Bilirubin 0.5 AST 38 Alkaline Phosphatase 77 Total Protein 7.3 Albumin 4.3 Triglycerides 93 Cholesterol 259.18 H LDL Cholesterol Direct 143 H VLDL Cholesterol 19.0 HDL Cholesterol 84 TSH Free T3 pg/mL Urine Color STRAW Urine Appearance CLEAR Urine pH 5.0 Ur Specific Brewster 1.022 Urine Protein NEGATIVE Urine Glucose (UA) >=500 H Urine Ketones NEGATIVE Urine Blood NEGATIVE Urine RBC (Auto) 1 08/22/19 06:11 WBC RBC Hgb Hct MCV MCH MCHC RDW Plt Count Sodium Potassium Chloride Carbon Dioxide Anion Gap BUN Creatinine Est GFR ( Amer) Glucose Calcium Magnesium Total Bilirubin AST Alkaline Phosphatase Total Protein Albumin Triglycerides Cholesterol LDL Cholesterol Direct VLDL Cholesterol HDL Cholesterol TSH 0.45 L Free T3 pg/mL 3.53 Urine Color Urine Appearance Urine pH Ur Specific Brewster Urine Protein Urine Glucose (UA) Urine Ketones Urine Blood Urine RBC (Auto) 08/21/19 14:25 NT-Pro-B Natriuret Pep 15 Impressions: Chest X-Ray 08/21/19 14:29 IMPRESSION: No acute cardiopulmonary process. Abdomen/Pelvis CT 08/21/19 15:27 IMPRESSION: No acute intra-abdominal abnormality. No ascites. Assessment and Plan - Diagnosis (1) Acute respiratory failure with hypoxia Is this a current diagnosis for this admission?: Yes Plan: He has been weaned down to 2 L per nasal cannula and is stable in the mid 90s there (2) Acute exacerbation of chronic obstructive pulmonary disease Is this a current diagnosis for this admission?: Yes Plan: No longer wheezing, but he still looks like he is having some difficulty with very prolonged expiratory phase so we will continue with his bronchodilators and steroids (3) Current every day smoker Is this a current diagnosis for this admission?: Yes Plan: He was smoking about a pack a day before he came in. He has been counseled regarding the deleterious effects of smoking on his overall health and has been strongly encouraged to quit immediately. (4) Diabetes mellitus type 2 in nonobese Is this a current diagnosis for this admission?: Yes Plan: Blood sugars are being exacerbated by the steroids. We got him on sliding scale coverage. (5) Hypertension Qualifiers: Hypertension type: essential hypertension Qualified Code(s): I10 - Essential (primary) hypertension Is this a current diagnosis for this admission?: Yes Plan: He is not on any antihypertensives at home according to his medication list. We will watch his blood pressures and see if he needs to be started on anything. (6) Anxiety Is this a current diagnosis for this admission?: Yes Plan: He is on Klonopin and Celexa at home - Plan Summary Summary: Patient will be admitted to the medical floor where he will receive routine supportive and symptomatic cares. He will be treated with aggressive pulmonary toilet utilizing nebulized Xopenex, Atrovent and Pulmicort. He will receive IV Solu-Medrol 40 mg every 6 hours x3 doses to complete an initial burst dose treatment. He will receive Levaquin 750 mg p.o. daily. He will receive supplemental oxygen as needed to maintain an adequate oxygen saturation, with the potential use of noninvasive airway pressure support devices if required. Before meals and at bedtime Accu-Cheks will be obtained and sliding scale insulin will be used to cover hyperglycemia with a hypoglycemic protocol in place. He will receive Ativan 1 mg IV every 4 hours as needed for anxiety or restlessness. He will receive morphine sulfate 2 to 4 mg IV every 2 hours on an as-needed basis for control of pain. His usual medications will be resumed, as appropriate, when his medication list has been verified and reconciled. A steroid taper will be prescribed according to the desires of the daytime hospitalist. - Time Time Spent with patient: 15-24 minutes
[2019-08-22] MEDS: MELATONIN 5 MG TABLET PO PRN (22:49)
[2019-08-22] MEDS: INSULIN GLARGINE,HUM.REC.ANLOG 1,000 UNIT/10 ML VIAL SUBCUT SCH (22:51)
[2019-08-23] MEDS: IPRATROPIUM BROMIDE 0.02% NEB 0.5 MG/2.5 ML AMPUL NEB SCH ×3 (00:48→16:02)
[2019-08-23] MEDS: LEVALBUTEROL HCL NEB 1.25 MG/3 ML AMPUL NEB SCH ×3 (00:48→16:02)
[2019-08-23] MEDS: HEPARIN SOD (PORCINE) 5,000 UNIT/ML 1 ML VIAL SUBCUT SCH ×3 (05:59→22:27)
[2019-08-23 06:05] LABS: HEMATOCRIT 38.8 % (37.9-51.0); HEMOGLOBIN 12.9 g/dL (13.5-17.0); MEAN CORPUSCULAR HEMOGLOBIN 30.2 pg (27.0-33.4); MEAN CORPUSCULAR HGB CONC 33.3 g/dL (32.0-36.0); MEAN CORPUSCULAR VOLUME 91 fl (80-97); PLATELET COUNT 208 10^3/uL (150-450); RED BLOOD COUNT 4.28 10^6/uL (4.35-5.55); RED CELL DISTRIBUTION WIDTH 13.9 % (11.5-14.0); WHITE BLOOD COUNT 15.7 10^3/uL (4.0-10.5)
[2019-08-23] MEDS: MORPHINE SULFATE 10 MG/ML INJ IV PRN ×3 (06:06→14:06)
[2019-08-23] MEDS: DEXTROSE 40% GEL 15 GM TUBE PO PRN ×2 (06:29→06:59)
[2019-08-23] MEDS: INSULIN LISPRO 100 UNIT/ML 3 ML VIAL SUBCUT SCH ×7 (07:38→22:25)
[2019-08-23] MEDS: BUDESONIDE NEB 0.5 MG/2 ML AMPUL NEB SCH ×2 (08:26→21:13)
[2019-08-23] MEDS: DOCUSATE SODIUM 100 MG CAPSULE PO SCH ×2 (09:54→17:04)
[2019-08-23] MEDS: CITALOPRAM HYDROBROMIDE 20 MG TABLET PO SCH (09:54)
[2019-08-23] MEDS: GABAPENTIN 400 MG CAPSULE PO SCH ×3 (09:54→17:04)
[2019-08-23] MEDS: FAMOTIDINE 20 MG TABLET PO SCH ×2 (09:55→22:27)
[2019-08-23] MEDS: CLONAZEPAM 1 MG TABLET PO SCH ×2 (09:55→17:04)
[2019-08-23] MEDS: METHYLPREDNISOLONE INJ 40 MG/1 ML SDV IV SCH ×2 (09:56→22:26)
[2019-08-23] MEDS ORDERED: MORPHINE SULFATE 10 MG/ML INJ IV PRN ×2 (10:24→10:25)
[2019-08-23] MEDS ORDERED: TRAMADOL HCL 50 MG TABLET PO PRN (16:50)
--- NOTE | 2019-08-23 18:33 | PDOC PROGRESS REPORT ---
Subjective Progress Note for:: 08/23/19 Subjective:: No adverse events overnight. No new complaints. He was on room air and his breathing looks more comfortable this morning. He got up and walked around the nurses station a little bit, but when he got back he was more short of breath and he had a prolonged hard coughing fit that took him some time to recover. While he was walking, his SPO2 on room air dropped to 86% but after a few moments at rest it recovered to 92%. He said he has been on prednisone for over a month now. He was not on any sort of maintenance COPD medication at home. He said he was on something that he thinks was Spiriva but it was very expensive and he does not have insurance. Reason For Visit: ACUTE RESPIRATORY FAILURE WITH HYPOXIA, ACUTE Physical Exam Vital Signs: Temp Pulse Resp BP Pulse Ox 97.7 F 95 16 134/55 H 95 08/23/19 15:36 08/23/19 16:36 08/23/19 16:36 08/23/19 15:36 08/23/19 16:36 Intake & Output 08/22/19 08/23/19 08/24/19 06:59 06:59 06:59 Intake Total 520 860 481 Output Total 600 Balance -80 860 481 Weight 90.1 kg 90.1 kg General appearance: PRESENT: no acute distress, cooperative, disheveled, obese Respiratory exam: PRESENT: decreased breath sounds, slightly prolonged expir atory phase, symmetrical. ABSENT: accessory muscle use, crackles, rhonchi, tachypnea, wheezes Cardiovascular exam: PRESENT: RRR, +S1, +S2 Pulses: PRESENT: normal carotid pulses Vascular exam: PRESENT: normal capillary refill GI/Abdominal exam: PRESENT: normal bowel sounds, soft. ABSENT: distended, guarding, rebound, tenderness Extremities exam: ABSENT: clubbing, pedal edema Musculoskeletal exam: PRESENT: normal inspection. ABSENT: deformity Neurological exam: PRESENT: alert, awake, oriented to person, oriented to place, oriented to situation Psychiatric exam: PRESENT: appropriate affect, normal mood Skin exam: PRESENT: dry, warm Results Laboratory Results: 08/23/19 05:48 08/22/19 06:11 08/23/19 08/23/19 05:48 05:48 WBC 15.7 H RBC 4.28 L Hgb 12.9 L Hct 38.8 MCV 91 MCH 30.2 MCHC 33.3 RDW 13.9 Plt Count 208 Magnesium 2.1 08/21/19 14:25 NT-Pro-B Natriuret Pep 15 Impressions: Chest X-Ray 08/21/19 14:29 IMPRESSION: No acute cardiopulmonary process. Abdomen/Pelvis CT 08/21/19 15:27 IMPRESSION: No acute intra-abdominal abnormality. No ascites. Assessment and Plan - Diagnosis (1) Acute respiratory failure with hypoxia Is this a current diagnosis for this admission?: Yes Plan: Resolved (2) Acute exacerbation of chronic obstructive pulmonary disease Is this a current diagnosis for this admission?: Yes Plan: I descalated his steroids. He wants to come off the prednisone, but I told him he has been on it for a month or more than he does not need to just discontinue it. We will start him on some prednisone in the morning and set him up on a taper. I am also going to try him on some scheduled Combivent that he should be able to take at home. This should not be as expensive as Spiriva. (3) Current every day smoker Is this a current diagnosis for this admission?: Yes Plan: He was smoking about a pack a day before he came in. He has been counseled regarding the deleterious effects of smoking on his overall health and has been strongly encouraged to quit immediately. (4) Diabetes mellitus type 2 in nonobese Is this a current diagnosis for this admission?: Yes Plan: Blood sugars are being exacerbated by the steroids but improved after his Solu- Medrol was scaled back. We got him on sliding scale coverage. (5) Hypertension Qualifiers: Hypertension type: essential hypertension Qualified Code(s): I10 - Essential (primary) hypertension Is this a current diagnosis for this admission?: Yes Plan: He is not on any antihypertensives at home according to his medication list. We will watch his blood pressures and see if he needs to be started on anything. (6) Anxiety Is this a current diagnosis for this admission?: Yes Plan: He is on Klonopin and Celexa at home - Plan Summary Summary: Patient will be admitted to the medical floor where he will receive routine supportive and symptomatic cares. He will be treated with aggressive pulmonary toilet utilizing nebulized Xopenex, Atrovent and Pulmicort. He will receive IV Solu-Medrol 40 mg every 6 hours x3 doses to complete an initial burst dose treatment. He will receive Levaquin 750 mg p.o. daily. He will receive supplemental oxygen as needed to maintain an adequate oxygen saturation, with the potential use of noninvasive airway pressure support devices if required. Before meals and at bedtime Accu-Cheks will be obtained and sliding scale ins ulin will be used to cover hyperglycemia with a hypoglycemic protocol in place. He will receive Ativan 1 mg IV every 4 hours as needed for anxiety or restlessness. He will receive morphine sulfate 2 to 4 mg IV every 2 hours on an as-needed basis for control of pain. His usual medications will be resumed, as appropriate, when his medication list has been verified and reconciled. A steroid taper will be prescribed according to the desires of the daytime hospitalist. - Time Time Spent with patient: 25-34 minutes
[2019-08-23] MEDS: LEVALBUTEROL HCL NEB 0.63 MG/3 ML AMPUL NEB PRN (21:13)
[2019-08-23] MEDS: MELATONIN 5 MG TABLET PO PRN (22:27)
[2019-08-23] MEDS: INSULIN GLARGINE,HUM.REC.ANLOG 1,000 UNIT/10 ML VIAL SUBCUT SCH (22:29)
[2019-08-24] MEDS: LEVALBUTEROL HCL NEB 1.25 MG/3 ML AMPUL NEB SCH ×3 (00:24→16:38)
[2019-08-24] MEDS: IPRATROPIUM BROMIDE 0.02% NEB 0.5 MG/2.5 ML AMPUL NEB SCH ×3 (00:24→16:38)
[2019-08-24 06:23] LABS: HEMATOCRIT 37.8 % (37.9-51.0); HEMOGLOBIN 12.8 g/dL (13.5-17.0); MEAN CORPUSCULAR HEMOGLOBIN 30.4 pg (27.0-33.4); MEAN CORPUSCULAR VOLUME 89 fl (80-97); PLATELET COUNT 178 10^3/uL (150-450); RED BLOOD COUNT 4.23 10^6/uL (4.35-5.55); RED CELL DISTRIBUTION WIDTH 13.6 % (11.5-14.0); WHITE BLOOD COUNT 11.3 10^3/uL (4.0-10.5)
[2019-08-24] MEDS: MORPHINE SULFATE 10 MG/ML INJ IV PRN (06:30)
[2019-08-24] MEDS: HEPARIN SOD (PORCINE) 5,000 UNIT/ML 1 ML VIAL SUBCUT SCH ×2 (06:31→13:55)
[2019-08-24] MEDS: INSULIN LISPRO 100 UNIT/ML 3 ML VIAL SUBCUT SCH ×6 (07:41→16:30)
[2019-08-24] MEDS: BUDESONIDE NEB 0.5 MG/2 ML AMPUL NEB SCH (08:22)
[2019-08-24] MEDS: GABAPENTIN 400 MG CAPSULE PO SCH ×3 (10:46→17:25)
[2019-08-24] MEDS: CLONAZEPAM 1 MG TABLET PO SCH ×2 (10:46→17:25)
[2019-08-24] MEDS: DOCUSATE SODIUM 100 MG CAPSULE PO SCH ×2 (10:46→17:25)
[2019-08-24] MEDS: CITALOPRAM HYDROBROMIDE 20 MG TABLET PO SCH (10:46)
[2019-08-24] MEDS: FAMOTIDINE 20 MG TABLET PO SCH (10:46)
[2019-08-24] MEDS: METHYLPREDNISOLONE INJ 40 MG/1 ML SDV IV SCH (10:46)
[2019-08-24] MEDS ORDERED: PREDNISONE 20 MG TABLET PO SCH (11:00)
[2019-08-24] MEDS: LEVALBUTEROL HCL NEB 0.63 MG/3 ML AMPUL NEB PRN (14:28)
--- NOTE | 2019-08-24 17:00 | PDOC DISCHARGE SUMMARY ---
Impression - Admit/DC Date/PCP Admission Date/Primary Care Provider: 08/21/19 20:13 Discharge Date: 08/24/19 - Discharge Diagnosis (1) Acute respiratory failure with hypoxia Is this a current diagnosis for this admission?: Yes (2) Acute exacerbation of chronic obstructive pulmonary disease Is this a current diagnosis for this admission?: Yes (3) Current every day smoker Is this a current diagnosis for this admission?: Yes (4) Diabetes mellitus type 2 in nonobese Is this a current diagnosis for this admission?: Yes (5) Hypertension Is this a current diagnosis for this admission?: Yes (6) Anxiety Is this a current diagnosis for this admission?: Yes - Assessment Summary: Patient will be admitted to the medical floor where he will receive routine supportive and symptomatic cares. He will be treated with aggressive pulmonary toilet utilizing nebulized Xopenex, Atrovent and Pulmicort. He will receive IV Solu-Medrol 40 mg every 6 hours x3 doses to complete an initial burst dose treatment. He will receive Levaquin 750 mg p.o. daily. He will receive supplemental oxygen as needed to maintain an adequate oxygen saturation, with the potential use of noninvasive airway pressure support devices if required. Before meals and at bedtime Accu-Cheks will be obtained and sliding scale insulin will be used to cover hyperglycemia with a hypoglycemic protocol in place. He will receive Ativan 1 mg IV every 4 hours as needed for anxiety or restlessness. He will receive morphine sulfate 2 to 4 mg IV every 2 hours on an as-needed basis for control of pain. His usual medications will be resumed, as appropriate, when his medication list has been verified and reconciled. A steroid taper will be prescribed according to the desires of the daytime hos pitalist. - Additional Information Resuscitation Status: Full Code Discharge Diet: Cardiac, Diabetic Discharge Activity: Activity As Tolerated, Balance Activity w/Rest Referrals: [facility] [Outside] (PATIENT WILL NEED TO CALL AND ESTABLISH CARE WITH CLINIC. THE CLINIC STAFF WILL SCHEDULE A TELE HEALTH APPT. DATE/TIME.) Prescriptions: Ipratropium/Albuterol Sulfate [Combivent Respimat 4 gm Mdi] 1 puff IH Q6 #1 aer.w.adap Prednisone [Deltasone 10 mg Tablet] 10 mg PO DAILY 12 Days #30 tablet Home Medications: Insulin Aspart [Novolog Flexpen] 9 unit SUBCUT MEALS 09/19/12 Clonazepam [Klonopin 1 mg Tablet] 2 mg PO BID 12/27/12 Citalopram Hydrobromide [Celexa 20 mg Tablet] 20 mg PO DAILY 08/21/19 Gabapentin [Neurontin 400 mg Capsule] 400 mg PO TID 08/21/19 Insulin Glargine,Hum.rec.anlog [Basaglar Lynnikpen U-100] 62 units SUBCUT DAILY 08/21/19 Ipratropium/Albuterol Sulfate [Duoneb 3 ml Ampul] 3 ml NEB RTQ6HP PRN 08/21/19 Ipratropium/Albuterol Sulfate [Combivent Respimat 4 gm Mdi] 1 puff IH Q6 #1 aer.w.adap 08/24/19 Prednisone [Deltasone 10 mg Tablet] 10 mg PO DAILY 12 Days #30 tablet 08/24/19 History of Present Illiness History of Present Illness: SAROJ ALFONSO is a 53 year old male who presented emergency room with a 3- day history of worsened dyspnea. He admits progressively worsening constant dyspnea at rest, exacerbated by any exertion, over the last 3 days, becoming severe today. He denies other associated or accompanying signs and symptoms. He admits prior similar episodes secondary to his chronic obstructive pulmonary disease. He has not identified any additional aggravating or ameliorating factors for his dyspnea. In the emergency room he was found to have acute respiratory failure with hypoxia requiring supplemental oxygen to maintain an adequate oxygen saturation. His laboratory and radiographic evaluation was unremarkable with the exception of a white blood count of 11,700, a blood sugar of 312 and an isolated mildly elevated ALT. He received numerous nebulizer therapy treatments and intravenous steroids with mild improvement but was still unable to tolerate minimal exertion without supplemental oxygen. He was subsequently admitted to the hospital for further evaluation and treatment. Hospital Course Hospital Course: He was kept on some IV steroids for a few days and he had some improvement. We were able to get him down to oral prednisone. He said that he has been on prednisone at home for a month and is trying to come off of it. He has not been on any sort of maintenance medication. He said that he had tried Spiriva but he could not afford it because right now he does not have insurance. He has Medicaid application pending. Every day he told me he was trying to get on disability. I have sent him a 12-day prednisone taper to his pharmacy to try to help him get off of the prednisone. I also sent him a prescription for a Combivent Respimat which should not be as expensive as Spiriva. His blood pressures were up and down but he wanted to see if he could try to lose weight once he comes off steroids to see if it helps his blood pressure. We did a 6- minute walk test and fortunately he did not require oxygen. His labs and examination were reassuring and he was discharged in stable condition. Physical Exam Vital Signs: Temp Pulse Resp BP Pulse Ox 98.6 F 88 18 153/69 H 97 08/24/19 12:00 08/24/19 16:49 08/24/19 16:49 08/24/19 12:00 08/24/19 16:49 Intake & Output 08/23/19 08/24/19 08/25/19 06:59 06:59 06:59 Intake Total 860 481 682 Balance 860 481 682 Weight 90.1 kg 90.1 kg General appearance: PRESENT: no acute distress, cooperative, disheveled, obese Respiratory exam: PRESENT: decreased breath sounds, slightly prolonged expiratory phase, symmetrical. ABSENT: accessory muscle use, crackles, rhonchi, tachypnea, wheezes Cardiovascular exam: PRESENT: RRR, +S1, +S2 Pulses: PRESENT: normal carotid pulses Vascular exam: PRESENT: normal capillary refill GI/Abdominal exam: PRESENT: normal bowel sounds, soft. ABSENT: distended, guarding, rebound, tenderness Extremities exam: ABSENT: clubbing, pedal edema Musculoskeletal exam: PRESENT: normal inspection. ABSENT: deformity Neurological exam: PRESENT: alert, awake, oriented to person, oriented to place, oriented to situation Psychiatric exam: PRESENT: appropriate affect, normal mood Skin exam: PRESENT: dry, warm Results Laboratory Results: WBC 11.3 10^3/uL (4.0-10.5) H 08/24/19 06:03 RBC 4.23 10^6/uL (4.35-5.55) L 08/24/19 06:03 Hgb 12.8 g/dL (13.5-17.0) L 08/24/19 06:03 Hct 37.8 % (37.9-51.0) L 08/24/19 06:03 MCV 89 fl (80-97) 08/24/19 06:03 MCH 30.4 pg (27.0-33.4) 08/24/19 06:03 MCHC 34.0 g/dL (32.0-36.0) 08/24/19 06:03 RDW 13.6 % (11.5-14.0) 08/24/19 06:03 Plt Count 178 10^3/uL (150-450) 08/24/19 06:03 Lymph % (Auto) 13.4 % (13-45) 08/21/19 14:25 Burnett % (Auto) 4.2 % (3-13) 08/21/19 14:25 Eos % (Auto) 1.3 % (0-6) 08/21/19 14:25 Baso % (Auto) 0.5 % (0-2) 08/21/19 14:25 Absolute Neuts (auto) 9.4 10^3/uL (1.7-8.2) H 08/21/19 14:25 Absolute Lymphs (auto) 1.6 10^3/uL (0.5-4.7) 08/21/19 14:25 Absolute Monos (auto) 0.5 10^3/uL (0.1-1.4) 08/21/19 14:25 Absolute Eos (auto) 0.1 10^3/uL (0.0-0.6) 08/21/19 14:25 Absolute Basos (auto) 0.1 10^3/uL (0.0-0.2) 08/21/19 14:25 Seg Neutrophils % 80.6 % (42-78) H 08/21/19 14:25 PT 11.5 SEC (11.4-15.4) 08/21/19 14:25 INR 0.84 08/21/19 14:25 APTT 25.2 SEC (23.5-35.8) 08/21/19 14:25 VBG pH 7.43 (7.30-7.42) H 08/21/19 15:32 VBG pCO2 34.2 mmHg (35-63) L 08/21/19 15:32 VBG HCO3 22.2 mmol/L (20-32) 08/21/19 15:32 VBG Base Excess -1.3 mmol/L 08/21/19 15:32 Sodium 137.4 mmol/L (137-145) 08/22/19 06:11 Potassium 4.7 mmol/L (3.6-5.0) 08/22/19 06:11 Chloride 99 mmol/L (98-107) 08/22/19 06:11 Carbon Dioxide 29 mmol/L (22-30) 08/22/19 06:11 Anion Gap 9 (5-19) 08/22/19 06:11 BUN 29 mg/dL (7-20) H 08/22/19 06:11 Creatinine 0.74 mg/dL (0.52-1.25) 08/22/19 06:11 Est GFR ( Amer) > 60 (>60) 08/22/19 06:11 Est GFR (MDRD) Non-Af > 60 (>60) 08/22/19 06:11 Glucose 237 mg/dL (75-110) H 08/22/19 06:11 POC Glucose 215 mg/dL (70-110) H 08/24/19 16:07 Hemoglobin A1c % 9.0 % (4.7-6.0) H 08/22/19 06:11 Calcium 9.7 mg/dL (8.4-10.2) 08/22/19 06:11 Magnesium 2.1 mg/dL (1.6-2.3) 08/24/19 06:03 Total Bilirubin 0.5 mg/dL (0.2-1.3) 08/22/19 06:11 Direct Bilirubin 0.0 mg/dL (0.0-0.4) 08/22/19 06:11 Neonat Total Bilirubin Not Reportable 08/22/19 06:11 Neonat Direct Bilirubin Not Reportable 08/22/19 06:11 Neonat Indirect Bili Not Reportable 08/22/19 06:11 AST 38 U/L (17-59) 08/22/19 06:11 ALT 99 U/L (<50) H 08/22/19 06:11 Alkaline Phosphatase 77 U/L (38-126) 08/22/19 06:11 NT-Pro-B Natriuret Pep 15 pg/mL (<125) 08/21/19 14:25 Total Protein 7.3 g/dL (6.3-8.2) 08/22/19 06:11 Albumin 4.3 g/dL (3.5-5.0) 08/22/19 06:11 Triglycerides 93 mg/dL (<150) 08/22/19 06:11 Cholesterol 259.18 mg/dL (0-200) H 08/22/19 06:11 LDL Cholesterol Direct 143 mg/dL (<100) H 08/22/19 06:11 VLDL Cholesterol 19.0 mg/dL (10-31) 08/22/19 06:11 HDL Cholesterol 84 mg/dL (>40) 08/22/19 06:11 TSH 0.45 uIU/mL (0.47-4.68) L 08/22/19 06:11 Free T3 pg/mL 3.53 pg/mL (2.77-5.27) 08/22/19 06:11 Urine Color STRAW 08/22/19 00:16 Urine Appearance CLEAR 08/22/19 00:16 Urine pH 5.0 (5.0-9.0) 08/22/19 00:16 Ur Specific [place] 1.022 08/22/19 00:16 Urine Protein NEGATIVE mg/dL (NEGATIVE) 08/22/19 00:16 Urine Glucose (UA) >=500 mg/dL (NEGATIVE) H 08/22/19 00:16 Urine Ketones NEGATIVE mg/dL (NEGATIVE) 08/22/19 00:16 Urine Blood NEGATIVE (NEGATIVE) 08/22/19 00:16 Urine Nitrite (Reflex) NEGATIVE (NEGATIVE) 08/22/19 00:16 Urine Bilirubin NEGATIVE (NEGATIVE) 08/22/19 00:16 Urine Urobilinogen NEGATIVE mg/dL (<2.0) 08/22/19 00:16 Leukocyte Esterase Rfl NEGATIVE (NEGATIVE) 08/22/19 00:16 Urine RBC (Auto) 1 /HPF 08/22/19 00:16 Urine Mucus (Auto) RARE /LPF 08/22/19 00:16 Urine Ascorbic Acid NEGATIVE (NEGATIVE) 08/22/19 00:16 08/21/19 14:25 NT-Pro-B Natriuret Pep 15 Impressions: Chest X-Ray 08/21/19 14:29 IMPRESSION: No acute cardiopulmonary process. Abdomen/Pelvis CT 08/21/19 15:27 IMPRESSION: No acute intra-abdominal abnormality. No ascites. Plan Time Spent: Greater than 30 Minutes Stroke Is this a Stroke Patient?: No Acute Heart Failure - Is this a Heart Failure Patient?: No
[2019-08-24 17:44] VITALS: BP 132/61
== END 2019-08-24 17:57 | disposition home or self-care (01) | DRG 189 ==
LOC: ER 14:14 → EH 20:13 → 4S 22:48
PROVIDERS: ADMIT Emergency Medicine; ATTEND Family Medicine
DX: J96.01 Acute respiratory failure with hypoxia (principal); J44.1 Chronic obstructive pulmonary disease with (acute) exacerbation; E24.2 Drug-induced Cushing's syndrome; E11.9 Type 2 diabetes mellitus without complications; I10 Essential (primary) hypertension; E11.51 Type 2 diabetes mellitus with diabetic peripheral angiopathy without gangrene; E66.9 Obesity, unspecified; M47.816 Spondylosis without myelopathy or radiculopathy, lumbar region; F31.9 Bipolar disorder, unspecified; F41.1 Generalized anxiety disorder; F25.9 Schizoaffective disorder, unspecified; T38.0X5A Adverse effect of glucocorticoids and synthetic analogues, initial encounter; Y92.9 Unspecified place or not applicable; F17.210 Nicotine dependence, cigarettes, uncomplicated; Z68.36 Body mass index [BMI] 36.0-36.9, adult; Z79.899 Other long term (current) drug therapy; Z79.51 Long term (current) use of inhaled steroids; Z79.52 Long term (current) use of systemic steroids; Z79.4 Long term (current) use of insulin; Z59.8 Other problems related to housing and economic circumstances
CPT/HCPCS: 36415; 71045; 74177; 80053; 80061; 81001; 82803; 82962; 83036; 83735; 83880; 84443; 84481; 85025; 85027; 85610; 85730; 93005; 93010; 94640; 99285; J1644; J1815; J2270; J2920; J3490; J7614; J7620

== ENCOUNTER 2019-09-15 22:41 | Inpatient (IN) | payer SELFPAY ==
[2019-09-15 23:01] LABS: ABSOLUTE BASOPHILS # (AUTO) 0.1 10^3/uL (0.0-0.2); ABSOLUTE EOSINOPHILS # (AUTO) 0.5 10^3/uL (0.0-0.6); ABSOLUTE LYMPHOCYTES (AUTO) 2.9 10^3/uL (0.5-4.7); ABSOLUTE MONOCYTES (AUTO) 1.2 10^3/uL (0.1-1.4); ABSOLUTE NEUT (AUTO) 8.7 10^3/uL (1.7-8.2); BASOPHILS % (AUTO) 0.5 % (0-2); EOSINOPHILS % (AUTO) 3.9 % (0-6); HEMATOCRIT 36.4 % (37.9-51.0); HEMOGLOBIN 12.3 g/dL (13.5-17.0); LYMPHOCYTES % (AUTO) 21.7 % (13-45); MEAN CORPUSCULAR HGB CONC 33.9 g/dL (32.0-36.0); MEAN CORPUSCULAR VOLUME 92 fl (80-97); MONOCYTES % (AUTO) 9.1 % (3-13); PLATELET COUNT 268 10^3/uL (150-450); RED BLOOD COUNT 3.98 10^6/uL (4.35-5.55); RED CELL DISTRIBUTION WIDTH 13.7 % (11.5-14.0); SEGMENTED NEUTROPHILS % (AUTO) 64.8 % (42-78); TOTAL CELLS COUNTED % (AUTO) 100 %; WHITE BLOOD COUNT 13.4 10^3/uL (4.0-10.5)
[2019-09-15 23:20] LABS: ALBUMIN 3.9 g/dL (3.5-5.0); ALKALINE PHOSPHATASE 76 U/L (38-126); ANION GAP 6 (5-19); ASPARTATE AMINO TRANSFERASE 23 U/L (17-59); BILIRUBIN,TOTAL 0.3 mg/dL (0.2-1.3); BLOOD UREA NITROGEN 28 mg/dL (7-20); CALCIUM 8.9 mg/dL (8.4-10.2); CARBON DIOXIDE 31 mmol/L (22-30); CHLORIDE 95 mmol/L (98-107); POTASSIUM 5.3 mmol/L (3.6-5.0); TOTAL PROTEIN 6.5 g/dL (6.3-8.2)
--- NOTE | 2019-09-15 23:30 | RADIOLOGY REPORT (SQ) ---
CLINICAL INDICATION: respiratory distress. TECHNIQUE: A single portable AP view was obtained of the chest at 2308 hours. COMPARISON: August 21, 2019. FINDINGS: The cardiomediastinal silhouette is normal. The lungs are grossly clear. No evidence of effusion or pneumothorax. Chronic parenchymal lung change. IMPRESSION: No evidence of active intrathoracic disease.
[2019-09-15 23:32] LABS: GLUCOSE 431 mg/dL (75-110)
[2019-09-15] MEDS ORDERED: INSULIN REG, HUMAN 100 UNIT/ML 3 ML VIAL (PYX) IV ONE (23:47)
[2019-09-15] MEDS ORDERED: IPRATROPIUM/ALBUTEROL 0.5-2.5 MG/3 ML AMPUL NEB ONE (23:47)
--- NOTE | 2019-09-15 23:52 | ER Document Report ---
ED General - General Chief Complaint: Respiratory Distress Stated Complaint: DIFFICULTY BREATHING Time Seen by Provider: 09/15/19 23:37 TRAVEL OUTSIDE OF THE [place] IN LAST 30 DAYS: No - HPI Notes: Patient is a 53-year-old male, former smoker, history of COPD, who presents to the emergency department for evaluation of shortness of breath. He was just recently hospitalized, finished his prednisone. He states his shortness of breath started yesterday. It got worse today. He states that his cough is s lightly worse, intermittently productive. He complains of pain in his chest and his back when he coughs, describes it as a soreness. He denies any fevers or chills. He states he has been taking his medications as prescribed. - Related Data Allergies/Adverse Reactions: No Known Allergies Allergy (Verified 08/21/19 14:30) Home Medications: Albuterol, Neurontin, NovoLog, DuoNeb, Celexa, Klonopin Past Medical History - General Information source: Patient - Social History Smoking Status: Former Smoker Frequency of alcohol use: None Drug Abuse: None Family History: denies: CAD, DM, Hypertension, Malignancy Patient has homicidal ideation: No - Past Medical History Cardiac Medical History: Reports: Hx Hypertension, Hx Peripheral Vascular Disease Denies: Hx Atrial Fibrillation, Hx Congestive Heart Failure, Hx Coronary Artery Disease, Hx Heart Attack, Hx Hypercholesterolemia Pulmonary Medical History: Reports: Hx Asthma, Hx COPD - Has been on chronic prednisone 40mg daily X 2 months, Hx Respiratory Failure Denies: Hx Bronchitis, Hx Pneumonia Neurological Medical History: Denies: Hx Cerebrovascular Accident, Hx Seizures Endocrine Medical History: Reports: Hx Diabetes Mellitus Type 2. Denies: Hx Diabetes Mellitus Type 1, Hx Hyperthyroidism, Hx Hypothyroidism GI Medical History: Denies: Hx Cirrhosis, Hx Crohn's Disease, Hx Gastroesophageal Reflux Disease, Hx Hepatitis, Hx Ulcerative Colitis Musculoskeletal Medical History: Reports Hx Arthritis - HANDS, Denies Hx Gout, Reports Hx Musculoskeletal Trauma Skin Medical History: Denies Hx Eczema, Denies Hx Psoriasis Psychiatric Medical History: Reports: Hx Bipolar Disorder, Hx Depression, Hx Schizoaffective Disorder Traumatic Medical History: Reports: Hx Fractures Infectious Medical History: Denies: Hx Hepatitis Past Surgical History: Reports: Hx Orthopedic Surgery - left ankle - Immunizations Immunizations up to date: Yes Hx Diphtheria, Pertussis, Tetanus Vaccination: Yes Physical Exam - Vital signs Vitals: Temp Pulse Resp BP Pulse Ox 98.0 F 109 H 21 H 133/78 H 100 09/15/19 22:42 09/15/19 22:42 09/15/19 22:42 09/15/19 22:42 09/15/19 22:42 Course - Re-evaluation Re-evalutation: 09/16/19 00:03 Patient presents to the emergency department for evaluation. The patient was admitted here a month ago. He was [facility]ation. It seems he finished his steroids and immediately became more short of breath. He said no fevers or chills. No nausea or vomiting. He is still wheezing on the BiPAP. Another breathing treatment is ordered. His blood sugars are markedly elevated, he is given IV insulin. This seems to be a significant COPD exacerbation. I spoke with Dr. Kong, who graciously came down and evaluated the patient. He will accept him for further care. - Vital Signs Vital signs: Temp Pulse Resp BP Pulse Ox 98.0 F 108 H 28 H 133/78 H 99 09/15/19 22:48 09/15/19 22:48 09/15/19 22:48 09/15/19 22:48 09/15/19 22:53 - Laboratory Result Diagrams: 09/15/19 22:40 09/15/19 22:40 Laboratory results interpreted by me: 09/15/19 09/15/19 22:40 22:40 WBC 13.4 H RBC 3.98 L Hgb 12.3 L Hct 36.4 L Absolute Neuts (auto) 8.7 H Sodium 131.9 L Potassium 5.3 H Chloride 95 L Carbon Dioxide 31 H BUN 28 H Glucose 431 H* - Diagnostic Test Radiology reviewed: Reports reviewed Radiology results interpreted by me: 09/16/19 00:04 Chest X-Ray 09/15/19 22:52 IMPRESSION: No evidence of active intrathoracic disease. - EKG Interpretation by Me Additional EKG results interpreted by me: 09/16/19 00:04 Sinus tachycardia with a rate of 109 bpm. Significant motion artifact in lead V2 rendering it unreadable. Otherwise, normal intervals and axis. No acute ST changes concerning for ischemia or infarction. Discharge - Discharge Clinical Impression: Acute exacerbation of chronic obstructive pulmonary disease, Diabetes mellitus type 2 in nonobese Hyperglycemia due to type 2 diabetes mellitus Qualifiers: Diabetes mellitus truck terminal manager insulin use: unspecified halfway insulin use status Qualified Code(s): E11.65 - Type 2 diabetes mellitus with hyperglycemia Condition: Stable Disposition: ADMITTED INPATIENT Admitting Provider: Dilan (Hospitalist) Unit Admitted: [facility]
[2019-09-16] MEDS ORDERED: DEXTROSE 40% GEL 15 GM TUBE PO PRN ×2 (00:37)
[2019-09-16] MEDS ORDERED: DEXTROSE 50%-WATER 25 GM/50 ML DISP.SYRIN IV PRN ×2 (00:37)
[2019-09-16] MEDS ORDERED: GLUCAGON,HUMAN RECOMB 1 MG INJ IM PRN (00:37)
[2019-09-16] MEDS ORDERED: IPRATROPIUM/ALBUTEROL 0.5-2.5 MG/3 ML AMPUL NEB PRN (00:43)
[2019-09-16] MEDS ORDERED: NORMAL SALINE 1000 ML 1,000 ML IV PRN (00:43)
[2019-09-16] MEDS ORDERED: ONDANSETRON HCL INJ/PF 4 MG/2 ML SDV IV PRN (00:43)
--- NOTE | 2019-09-16 00:52 | PDOC H&P ---
History of Present Illness History of Present Illness: SAROJ ALFONSO is a 53 year old male with a history of COPD who was discharged from this facility on August 23 and wound up back in the hospital in [place] sometime over a week ago and said he was discharged home 5 days ago, once again for an exacerbation of COPD. He was put on a short prednisone burst that ended yesterday. He said today he started having worsening shortness of breath. He is not had any fevers. He is not had any cough, he just could not get breath in. His chest x-ray is clear. He had to be put on BiPAP because of the severity of his wheezing. Past Medical History Cardiac Medical History: Reports: Hypertension, Peripheral Vascular Disease Denies: Atrial Fibrillation, Congestive Heart Failure, Coronary Artery Disease, Myocardial Infarction, Hyperlipidema Pulmonary Medical History: Reports: Asthma, Chronic Obstructive Pulmonary Disease (COPD) - Has been on chronic prednisone 40mg daily X 2 months, Respiratory Failure Denies: Bronchitis, Pneumonia Neurological Medical History: Denies: Seizures Endocrine Medical History: Reports: Diabetes Mellitus Type 2 Denies: Diabetes Mellitus Type 1, Hyperthyroidism, Hypothyroidism GI Medical History: Denies: Cirrhosis, Crohn's Disease, Gastroesophageal Reflux Disease, Hepatitis, Ulcerative Colitis Musculoskeltal Medical History: Reports: Arthritis - HANDS Denies: Gout Skin Medical History: Denies: Eczema, Psoriasis Psychiatric Medical History: Reports: Bipolar Disorder, Depression, S chizoaffective Disorder Hematology: Denies: Anemia, Bleeding Tendencies Past Surgical History Past Surgical History: Reports: Orthopedic Surgery - left ankle Social History Smoking Status: Former Smoker Frequency of Alcohol Use: None Hx Recreational Drug Use: No Drugs: None Hx Prescription Drug Abuse: No Family History Family History: denies: CAD, DM, Hypertension, Malignancy Parental Family History Reviewed: Yes Children Family History Reviewed: Yes Sibling(s) Family History Reviewed.: Yes Medication/Allergy Home Medications: Insulin Aspart [Novolog Flexpen] 9 unit SUBCUT MEALS 09/19/12 Clonazepam [Klonopin 1 mg Tablet] 2 mg PO BID 12/27/12 Citalopram Hydrobromide [Celexa 20 mg Tablet] 20 mg PO DAILY 08/21/19 Gabapentin [Neurontin 400 mg Capsule] 400 mg PO TID 08/21/19 Insulin Glargine,Hum.rec.anlog [Basaglar Kwikpen U-100] 62 units SUBCUT DAILY 08/21/19 Ipratropium/Albuterol Sulfate [Duoneb 3 ml Ampul] 3 ml NEB RTQ6HP PRN 08/21/19 Ipratropium/Albuterol Sulfate [Combivent Respimat 4 gm Mdi] 1 puff IH Q6 #1 aer.w.adap 08/24/19 Prednisone [Deltasone 10 mg Tablet] 10 mg PO DAILY 12 Days #30 tablet 08/24/19 Ipratropium/Albuterol Sulfate [Duoneb 3 ml Ampul] 3 ml NEB RTQ6 #120 [email or web address] 08/26/19 Allergies/Adverse Reactions: No Known Allergies Allergy (Verified 08/21/19 14:30) Review of Systems All systems: reviewed and no additional remarkable complaints except as stated - All systems were reviewed and were negative except as noted in the HPI Physical Exam Vital Signs: Temp Pulse Resp BP Pulse Ox 98.0 F 108 H 28 H 133/78 H 99 09/15/19 22:48 09/15/19 22:48 09/15/19 22:48 09/15/19 22:48 09/15/19 22:53 Intake & Output 09/14/19 09/15/19 09/16/19 06:59 06:59 06:59 Weight 95.254 kg General appearance: PRESENT: cooperative, disheveled, obese, other - Moderate distress Head exam: PRESENT: atraumatic Eye exam: PRESENT: EOMI, PERRLA. ABSENT: conjunctival injection, nystagmus, scleral icterus Ear exam: PRESENT: normal external ear exam Mouth exam: PRESENT: dry mucosa, neck supple Throat exam: ABSENT: post pharyngeal erythema Neck exam: PRESENT: full ROM. ABSENT: carotid bruit, JVD, lymphadenopathy, meningismus, tenderness, thyromegaly Respiratory exam: PRESENT: accessory muscle use, prolonged expiratory phas, symmetrical, tachypnea, wheezes. ABSENT: chest wall tenderness, crackles, rhonchi, unlabored Cardiovascular exam: PRESENT: +S1, +S2, tachycardia Pulses: PRESENT: normal carotid pulses Vascular exam: PRESENT: normal capillary refill GI/Abdominal exam: PRESENT: normal bowel sounds, soft. ABSENT: distended, guarding, rebound, tenderness Extremities exam: ABSENT: clubbing, pedal edema Musculoskeletal exam: PRESENT: normal inspection. ABSENT: deformity Neurological exam: PRESENT: alert, awake, oriented to person, oriented to place, oriented to situation, CN II-XII grossly intact. ABSENT: motor sensory deficit Psychiatric exam: PRESENT: anxious Skin exam: PRESENT: dry, warm, other - Generally flushed Results Laboratory Results: 09/15/19 22:40 09/15/19 22:40 09/15/19 09/15/19 22:40 22:40 WBC 13.4 H RBC 3.98 L Hgb 12.3 L Hct 36.4 L MCV 92 MCH 31.0 MCHC 33.9 RDW 13.7 Plt Count 268 Seg Neutrophils % 64.8 Sodium 131.9 L Potassium 5.3 H Chloride 95 L Carbon Dioxide 31 H Anion Gap 6 BUN 28 H Creatinine 0.96 Est GFR ( Amer) > 60 Glucose 431 H* Calcium 8.9 Total Bilirubin 0.3 AST 23 Alkaline Phosphatase 76 Total Protein 6.5 Albumin 3.9 09/15/19 22:40 Troponin I < 0.012 Impressions: Chest X-Ray 09/15/19 22:52 IMPRESSION: No evidence of active intrathoracic disease. Assessment and Plan - Diagnosis (1) Acute respiratory failure with hypoxia Is this a current diagnosis for this admission?: Yes Plan: Apparently he had been on 2 L of oxygen at home, he did not qualify for oxygen whenever he left this hospital on August 23. Currently requiring BiPAP due to his work of breathing. Will wean as tolerated. (2) Acute exacerbation of chronic obstructive pulmonary disease Is this a current diagnosis for this admission?: Yes Plan: IV Solu-Medrol, doxycycline, nebulizer treatments, supplemental O2 as needed. He was not on any home medications other than Combivent Respimat, which I do not know if he actually got filled when he left here. He said he could not afford the other medications because he did not have insurance. (3) Anxiety Is this a current diagnosis for this admission?: Yes Plan: We will continue his home medication of Klonopin (4) Hyperglycemia due to type 2 diabetes mellitus Qualifiers: Diabetes mellitus parts counterman insulin use: with mcfp use Qualified Code(s): E11.65 - Type 2 diabetes mellitus with hyperglycemia; Z79.4 - lobsterman (current) use of insulin Is this a current diagnosis for this admission?: Yes Plan: We will continue his Lantus and add a sliding scale. Diabetic diet. - Time Time Spent with patient: 35 or more minutes Anticipated discharge: Home with Homehealth Within: Other - Inpatient Certification Based on my medical assessment, after consideration of the patient's comorbidities, presenting symptoms, or acuity I expect that the services needed warrant INPATIENT care.: Yes I certify that my determination is in accordance with my understanding of Medicare's requirements for reasonable and necessary INPATIENT services [42 CFR 412.3e].: Yes Medical Necessity: Failure to Improve With Outpatient Therapy, Significant Comorbidiites Make Outpatient Treatment Too Risky, Need Close Monitoring Due to Risk of Patient Decompensation, Need For IV Fluids, Need For Continuous Telemetry Monitoring, Need for Nebulizer Therapy and Monitoring of Response, Need for IV Antibiotics, Risk of Complication if Not Cared For in Hospital
[2019-09-16] MEDS ORDERED: DOXYCYCLINE HYCLATE 100 MG in DEXTROSE 5%-WATER 250 ML IV ONE (01:15)
[2019-09-16] MEDS ORDERED: DOXYCYCLINE HYCLATE INJ 100 MG VIAL ONE (04:25)
[2019-09-16] MEDS: METHYLPREDNISOLONE INJ 40 MG/1 ML SDV IV SCH ×3 (05:25→21:26)
[2019-09-16] MEDS: HEPARIN SOD (PORCINE) 5,000 UNIT/ML 1 ML VIAL SUBCUT SCH ×3 (05:26→21:26)
[2019-09-16] MEDS: INSULIN LISPRO 100 UNIT/ML 3 ML VIAL SUBCUT SCH ×6 (08:10→21:40)
[2019-09-16] MEDS: DOXYCYCLINE HYCLATE 100 MG in DEXTROSE 5%-WATER 250 ML IV SCH ×2 (09:32→21:26)
[2019-09-16] MEDS ORDERED: INSULIN GLARGINE,HUM.REC.ANLOG 1,000 UNIT/10 ML VIAL SUBCUT SCH (10:00)
--- NOTE | 2019-09-16 11:53 | Progress Note ---
Provider Note Provider Note: Patient seen and evaluated by me this morning. Comfortable but has wheezing on exam. Patient has been on steroids for several days and seems to have recurrent exacerbation whenever taking of steroids. However, he seems to have frequent exacerbations and seems to be on only rescue inhaler and nebulizer. I discussed with him that we will need to start him on a Laba/ICS or LABA/LAMA combination. We will put him on Breo in the meantime. Frequent nebulizers every 6 hours to be continued. Continue on IV Solu-Medrol and doxycycline for COPD exacerbation.
[2019-09-16] MEDS: IPRATROPIUM/ALBUTEROL 0.5-2.5 MG/3 ML AMPUL NEB SCH ×2 (14:01→20:08)
[2019-09-16] MEDS: GABAPENTIN 400 MG CAPSULE PO SCH ×2 (14:33→21:26)
[2019-09-16] MEDS: GUAIFENESIN SYRP 200 MG/10 ML UDC PO PRN ×2 (14:33→22:39)
[2019-09-16] MEDS: FLUTICASONE NASAL SPRAY 50 MCG/SPRY 120 SPRAY/16 GM NASL SCH ×2 (14:33→21:42)
[2019-09-16] MEDS: FLUTICASONE/VILANTEROL 100-25 MCG/DOSE IH SCH (14:34)
[2019-09-16] MEDS: CLONAZEPAM 1 MG TABLET PO SCH (22:39)
[2019-09-17] MEDS: IPRATROPIUM/ALBUTEROL 0.5-2.5 MG/3 ML AMPUL NEB SCH ×4 (02:34→19:45)
[2019-09-17 06:24] LABS: HEMOGLOBIN 12.2 g/dL (13.5-17.0); MEAN CORPUSCULAR HEMOGLOBIN 30.8 pg (27.0-33.4); MEAN CORPUSCULAR HGB CONC 34.8 g/dL (32.0-36.0); MEAN CORPUSCULAR VOLUME 89 fl (80-97); PLATELET COUNT 262 10^3/uL (150-450); RED BLOOD COUNT 3.95 10^6/uL (4.35-5.55); RED CELL DISTRIBUTION WIDTH 13.3 % (11.5-14.0); WHITE BLOOD COUNT 17.8 10^3/uL (4.0-10.5)
[2019-09-17] MEDS: GABAPENTIN 400 MG CAPSULE PO SCH ×3 (06:25→21:17)
[2019-09-17] MEDS: HEPARIN SOD (PORCINE) 5,000 UNIT/ML 1 ML VIAL SUBCUT SCH ×3 (06:26→21:25)
[2019-09-17] MEDS: CITALOPRAM HYDROBROMIDE 20 MG TABLET PO SCH (06:26)
[2019-09-17] MEDS: METHYLPREDNISOLONE INJ 40 MG/1 ML SDV IV SCH ×3 (06:26→21:17)
[2019-09-17 06:44] LABS: ANION GAP 6 (5-19); BLOOD UREA NITROGEN 26 mg/dL (7-20); CALCIUM 9.1 mg/dL (8.4-10.2); CARBON DIOXIDE 27 mmol/L (22-30); CHLORIDE 100 mmol/L (98-107); GLUCOSE 389 mg/dL (75-110)
[2019-09-17] MEDS: INSULIN LISPRO 100 UNIT/ML 3 ML VIAL SUBCUT SCH ×7 (07:45→21:22)
[2019-09-17] MEDS ORDERED: INSULIN GLARGINE,HUM.REC.ANLOG 1,000 UNIT/10 ML VIAL SUBCUT SCH (10:00)
[2019-09-17] MEDS: FLUTICASONE NASAL SPRAY 50 MCG/SPRY 120 SPRAY/16 GM NASL SCH ×2 (10:18→21:17)
[2019-09-17] MEDS: CLONAZEPAM 1 MG TABLET PO SCH ×2 (10:18→21:16)
[2019-09-17] MEDS: FLUTICASONE/VILANTEROL 100-25 MCG/DOSE IH SCH (10:19)
[2019-09-17] MEDS: DOXYCYCLINE HYCLATE 100 MG in DEXTROSE 5%-WATER 250 ML IV SCH ×2 (10:19→21:17)
[2019-09-17] MEDS ORDERED: IPRATROPIUM/ALBUTEROL 0.5-2.5 MG/3 ML AMPUL NEB PRN (12:58)
--- NOTE | 2019-09-17 13:42 | PDOC PROGRESS REPORT ---
Subjective Progress Note for:: 09/17/19 Subjective:: Patient with multiple coughing jags. Still coughing up lots of mucus. The patient questions his enlarging stomach. He reports on a higher oxygen flow he is feeling better. BiPAP is at the bedside but the patient reports that he has not been wearing it. Reason For Visit: ACUTE HYPOXIC RESPIRATORY FAILURE,ACUTE Physical Exam Vital Signs: Temp Pulse Resp BP Pulse Ox 97.7 F 98 19 163/61 H 100 09/17/19 11:28 09/17/19 11:28 09/17/19 11:28 09/17/19 11:28 09/17/19 11:28 Intake & Output 09/16/19 09/17/19 09/18/19 06:59 06:59 06:59 Intake Total 60 2335 1186 Output Total 550 Balance 60 1785 1186 Weight 99.9 kg 102.1 kg General appearance: PRESENT: cooperative, mild distress, well-developed Head exam: PRESENT: atraumatic, normocephalic Eye exam: PRESENT: conjunctiva pink. ABSENT: scleral icterus Ear exam: PRESENT: normal external ear exam. ABSENT: bleeding, drainage Mouth exam: PRESENT: moist, tongue midline Respiratory exam: PRESENT: prolonged expiratory phas, symmetrical, unlabored, wheezes - Faint expiratory wheezes bilaterally. ABSENT: accessory muscle use, rales, rhonchi, tachypnea Cardiovascular exam: PRESENT: RRR, +S1, +S2, other - Occasional PVCs. ABSENT: diastolic murmur, irregular rhythm, systolic murmur GI/Abdominal exam: PRESENT: distended - And slightly tense but not firm., normal bowel sounds. ABSENT: guarding, tenderness Rectal exam: PRESENT: deferred Gentrourinary exam: ABSENT: indwelling catheter Extremities exam: ABSENT: pedal edema, +1 edema Musculoskeletal exam: PRESENT: ambulatory, normal inspection Neurological exam: PRESENT: alert, awake, oriented to person, oriented to place, oriented to time, oriented to situation, CN II-XII grossly intact. ABSENT: alte red, motor sensory deficit Psychiatric exam: PRESENT: appropriate affect. ABSENT: agitated, anxious Focused psych exam: ABSENT: delusional, paranoid, restlessness Skin exam: PRESENT: dry, normal color, warm. ABSENT: rash Results Laboratory Results: 09/17/19 05:37 09/17/19 05:37 09/17/19 09/17/19 05:37 05:37 WBC 17.8 H RBC 3.95 L Hgb 12.2 L Hct 35.0 L MCV 89 MCH 30.8 MCHC 34.8 RDW 13.3 Plt Count 262 Sodium 133.4 L Potassium 5.0 Chloride 100 Carbon Dioxide 27 Anion Gap 6 BUN 26 H Creatinine 0.67 Est GFR ( Amer) > 60 Glucose 389 H Calcium 9.1 Magnesium 2.2 09/15/19 22:40 Troponin I < 0.012 Impressions: Chest X-Ray 09/15/19 22:52 IMPRESSION: No evidence of active intrathoracic disease. Assessment and Plan - Diagnosis (1) Acute respiratory failure with hypoxia Is this a current diagnosis for this admission?: Yes Plan: Continue oxygen supplementation. BiPAP as needed. There is no blood gas to check for hypercapnia but based on his clinical presentation it is unlikely. (2) Acute exacerbation of chronic obstructive pulmonary disease Is this a current diagnosis for this admission?: Yes Plan: Continue IV steroids as well as doxycycline. He reports that he has been hospitalized 5 different times over the last several months because of COPD. He has been on chronic steroids for an extended period. It does not seem that he has a fixed regimen at home. He reports that he has been using mostly DuoNeb's. He could not name his inhalers. He would benefit from a more regimented protocol. I did place a consult for pulmonology and they will see him in the morning. (3) Hyperglycemia due to type 2 diabetes mellitus Qualifiers: Diabetes mellitus jail insulin use: with captain waiter/waitress use Qualified Code(s): E11.65 - Type 2 diabetes mellitus with hyperglycemia; Z79.4 - intermediate (current) use of insulin Is this a current diagnosis for this admission?: Yes Plan: The chronic steroids have reached havoc with his diabetes. He will be on a controlled carbohydrate diet with Accu-Cheks at meals and bedtime. I have increased his Lantus to 40 units daily. He continues with 9 units of Humalog at meals plus sliding scale. His diabetes should be easier to control once he is able to get off of systemic steroids. (4) Leukocytosis Qualifiers: Leukocytosis type: unspecified Qualified Code(s): D72.829 - Elevated white blood cell count, unspecified Is this a current diagnosis for this admission?: Yes Plan: White blood cell count has increased. This is most likely due to the systemic steroids. We will continue to monitor. (5) Anxiety Is this a current diagnosis for this admission?: Yes Plan: Continue Klonopin and citalopram. (6) Cigarette nicotine dependence Qualifiers: Substance use status: unspecified nicotine-induced disorder Qualified Code(s): F17.219 - Nicotine dependence, cigarettes, with unspecified nicotine- induced disorders Is this a current diagnosis for this admission?: Yes Plan: I feel strongly that the inability to control his COPD is directly related to his cigarette use. We will utilize a nicotine patch and encourage tobacco cessation. (7) Pain, chronic Qualifiers: Chronic pain type: other chronic pain Qualified Code(s): G89.29 - Other chronic pain Is this a current diagnosis for this admission?: Yes Plan: The patient was treated at a chronic pain management center. He reports that he no longer wanted to utilize the narcotic analgesics. We will continue his gabapentin at this time. It may be related to a diabetic neuropathy as well. That is unknown at this time. (8) Cushingoid side effect of steroids Is this a current diagnosis for this admission?: Yes Plan: He appears to be developing centripetal obesity. This is from chronic steroid use. Hopefully we can wean him from steroids and this should resolve on its own. - Time Time Spent with patient: 15-24 minutes Medications reviewed and adjusted accordingly: Yes Anticipated discharge: Home Within: Other - Possibly 4 days
[2019-09-17] MEDS: ACETAMINOPHEN 325 MG TABLET PO PRN (13:59)
[2019-09-17] MEDS: OXYCODONE-ACETAMINOPHEN 5-325 MG TABLET PO PRN (21:16)
[2019-09-17] MEDS: MONTELUKAST SODIUM 10 MG TABLET PO SCH (21:17)
[2019-09-17] MEDS: GUAIFENESIN 600 MG TABLET.SA PO SCH (21:17)
[2019-09-17] MEDS: GUAIFENESIN SYRP 200 MG/10 ML UDC PO PRN (21:22)
[2019-09-18] MEDS: IPRATROPIUM/ALBUTEROL 0.5-2.5 MG/3 ML AMPUL NEB SCH ×4 (02:18→20:41)
[2019-09-18] MEDS: GUAIFENESIN SYRP 200 MG/10 ML UDC PO PRN (03:45)
[2019-09-18] MEDS: OXYCODONE-ACETAMINOPHEN 5-325 MG TABLET PO PRN ×3 (03:45→22:06)
[2019-09-18 05:57] LABS: HEMATOCRIT 32.7 % (37.9-51.0); HEMOGLOBIN 11.4 g/dL (13.5-17.0); MEAN CORPUSCULAR HEMOGLOBIN 30.8 pg (27.0-33.4); MEAN CORPUSCULAR HGB CONC 34.9 g/dL (32.0-36.0); MEAN CORPUSCULAR VOLUME 88 fl (80-97); PLATELET COUNT 243 10^3/uL (150-450); RED CELL DISTRIBUTION WIDTH 13.6 % (11.5-14.0); WHITE BLOOD COUNT 15.4 10^3/uL (4.0-10.5)
[2019-09-18] MEDS: GABAPENTIN 400 MG CAPSULE PO SCH ×3 (06:18→21:50)
[2019-09-18] MEDS: CITALOPRAM HYDROBROMIDE 20 MG TABLET PO SCH (06:18)
[2019-09-18] MEDS: METHYLPREDNISOLONE INJ 40 MG/1 ML SDV IV SCH ×3 (06:18→21:50)
[2019-09-18] MEDS: HEPARIN SOD (PORCINE) 5,000 UNIT/ML 1 ML VIAL SUBCUT SCH ×3 (06:18→21:50)
[2019-09-18 06:25] LABS: ANION GAP 5 (5-19); BLOOD UREA NITROGEN 20 mg/dL (7-20); CALCIUM 8.9 mg/dL (8.4-10.2); CARBON DIOXIDE 30 mmol/L (22-30); CHLORIDE 99 mmol/L (98-107); GLUCOSE 206 mg/dL (75-110); POTASSIUM 4.5 mmol/L (3.6-5.0)
[2019-09-18] MEDS: INSULIN LISPRO 100 UNIT/ML 3 ML VIAL SUBCUT SCH ×7 (07:49→21:51)
[2019-09-18] MEDS: CLONAZEPAM 1 MG TABLET PO SCH ×2 (09:43→22:02)
[2019-09-18] MEDS: FLUTICASONE NASAL SPRAY 50 MCG/SPRY 120 SPRAY/16 GM NASL SCH ×2 (09:43→21:51)
[2019-09-18] MEDS: GUAIFENESIN 600 MG TABLET.SA PO SCH ×2 (09:43→21:51)
[2019-09-18] MEDS: DOXYCYCLINE HYCLATE 100 MG in DEXTROSE 5%-WATER 250 ML IV SCH ×2 (09:43→21:52)
[2019-09-18] MEDS: FLUTICASONE/VILANTEROL 100-25 MCG/DOSE IH SCH (09:44)
[2019-09-18] MEDS ORDERED: INSULIN GLARGINE,HUM.REC.ANLOG 1,000 UNIT/10 ML VIAL SUBCUT SCH (10:00)
--- NOTE | 2019-09-18 13:28 | PDOC PROGRESS REPORT ---
Subjective Progress Note for:: 09/18/19 Subjective:: The patient was seen by Dr. Malone. He is resting in bed. He is on nasal cannula. He does mention that food seems to stick in the back of his throat at times. Reason For Visit: ACUTE HYPOXIC RESPIRATORY FAILURE,ACUTE Physical Exam Vital Signs: Temp Pulse Resp BP Pulse Ox 98.1 F 99 15 118/43 L 98 09/18/19 11:19 09/18/19 11:19 09/18/19 11:19 09/18/19 11:19 09/18/19 11:19 Intake & Output 09/17/19 09/18/19 09/19/19 06:59 06:59 06:59 Intake Total 2335 4361 250 Output Total 550 Balance 1785 4361 250 Weight 102.1 kg 101.2 kg 100.9 kg General appearance: PRESENT: no acute distress, cooperative, well-developed Head exam: PRESENT: atraumatic, normocephalic Eye exam: PRESENT: conjunctiva pink. ABSENT: scleral icterus Ear exam: PRESENT: normal external ear exam. ABSENT: bleeding, drainage Mouth exam: PRESENT: moist, tongue midline Respiratory exam: PRESENT: prolonged expiratory phas - With decreased inspiratory phase, symmetrical, unlabored, wheezes - Faint wheezes. ABSENT: rales, rhonchi, tachypnea Cardiovascular exam: PRESENT: RRR, +S1, +S2 GI/Abdominal exam: PRESENT: distended - Cushingoid appearance, normal bowel sounds, soft. ABSENT: guarding, tenderness Rectal exam: PRESENT: deferred Gentrourinary exam: ABSENT: indwelling catheter Extremities exam: ABSENT: pedal edema Musculoskeletal exam: PRESENT: ambulatory, full ROM, normal inspection Neurological exam: PRESENT: alert, awake, oriented to person, oriented to place, oriented to time, oriented to situation, CN II-XII grossly intact. ABSENT: altered, motor sensory deficit Psychiatric exam: PRESENT: appropriate affect. ABSENT: agitated, anxious Focused psych exam: ABSENT: delusional, paranoid, restlessness Skin exam: PRESENT: dry, normal color, warm. ABSENT: rash Results Laboratory Results: 09/18/19 04:31 09/18/19 04:31 09/18/19 09/18/19 04:31 04:31 WBC 15.4 H RBC 3.70 L Hgb 11.4 L Hct 32.7 L MCV 88 MCH 30.8 MCHC 34.9 RDW 13.6 Plt Count 243 Sodium 134.1 L Potassium 4.5 Chloride 99 Carbon Dioxide 30 Anion Gap 5 BUN 20 Creatinine 0.67 Est GFR ( Amer) > 60 Glucose 206 H Calcium 8.9 Magnesium 2.0 09/15/19 22:40 Troponin I < 0.012 Impressions: Chest X-Ray 09/15/19 22:52 IMPRESSION: No evidence of active intrathoracic disease. Assessment and Plan - Diagnosis (1) Acute respiratory failure with hypoxia Is this a current diagnosis for this admission?: Yes Plan: The patient's oxygen requirements seem to be improving. Continue current regimen continue to taper oxygen as tolerated (2) Acute exacerbation of chronic obstructive pulmonary disease Is this a current diagnosis for this admission?: Yes Plan: I reviewed his assessment with Dr. Malone. He wonders if the patient might be experiencing aspiration. I have ordered a modified barium swallow. I will d ecrease the Solu-Medrol to 40 mg twice daily. (3) Hyperglycemia due to type 2 diabetes mellitus Qualifiers: Diabetes mellitus assisted insulin use: with assisted use Qualified Code(s): E11.65 - Type 2 diabetes mellitus with hyperglycemia; Z79.4 - alf (current) use of insulin Is this a current diagnosis for this admission?: Yes Plan: Still significantly elevated. Mostly due to steroids. I increased the Lantus again to 45 units. (4) Leukocytosis Qualifiers: Leukocytosis type: unspecified Qualified Code(s): D72.829 - Elevated white blood cell count, unspecified Is this a current diagnosis for this admission?: Yes Plan: Continues to slowly improve. I expect it to decrease even more by decreasing the Solu-Medrol (5) Anxiety Is this a current diagnosis for this admission?: Yes Plan: Stable. Continue current regimen (6) Cigarette nicotine dependence Qualifiers: Substance use status: unspecified nicotine-induced disorder Qualified Code(s): F17.219 - Nicotine dependence, cigarettes, with unspecified nicotine- induced disorders Is this a current diagnosis for this admission?: Yes Plan: Continue nicotine patch (7) Pain, chronic Qualifiers: Chronic pain type: other chronic pain Qualified Code(s): G89.29 - Other chronic pain Is this a current diagnosis for this admission?: Yes Plan: Percocet added to his regimen (8) Cushingoid side effect of steroids Is this a current diagnosis for this admission?: Yes Plan: Continue treatment wean steroids - Time Time Spent with patient: 15-24 minutes Medications reviewed and adjusted accordingly: Yes Anticipated discharge: Home Within: within 72 hours
--- NOTE | 2019-09-18 15:52 | PDOC CONSULTATION ---
Consultation Consult Date: 09/18/19 Attending physician:: APUL MEDELLIN Provider Consulted: ALEX FARRIS Consult reason:: Acute on chronic respiratory failure History of Present Illness Admission Date/PCP: 09/16/19 01:07 History of Present Illness: SAROJ ALFONSO is a 53 year old male presents to the emergency room with for the fourth and fifth time in the last 3 months for admission due to increasing shortness of breath each time he was treated with prednisone and as the prednisone was tapered he got worse and return to the emergency room once at [facility] and several other times at [place]. He has been still cough that she is productive of white phlegm he denies fevers chills hemoptysis PPD was negative dates unknown no history of chronic lung disease as a child or adolescent. He admits exposure to large amounts of passive smoke as a child as well as an adult he has still smoked 1-1/2 to 2 packs a day for approximately 34 years. 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 He has 1 dog and no recent travel he denies angina-like chest pain sleeps on 2 pillows frequent PND no nocturnal cough and occasional edema he admi ts to snoring restless sleep unrestful sleep and excessive daytime somnolence. Past Medical History Cardiac Medical History: Reports: Hypertension, Peripheral Vascular Disease Denies: Atrial Fibrillation, Congestive Heart Failure, Coronary Artery Disease, Myocardial Infarction, Hyperlipidema Pulmonary Medical History: Reports: Asthma, Chronic Obstructive Pulmonary Disease (COPD) - Has been on chronic prednisone 40mg daily X 2 months, Respiratory Failure Denies: Bronchitis, Pneumonia Neurological Medical History: Denies: Seizures Endocrine Medical History: Reports: Diabetes Mellitus Type 2 Denies: Diabetes Mellitus Type 1, Hyperthyroidism, Hypothyroidism GI Medical History: Denies: Cirrhosis, Crohn's Disease, Gastroesophageal Reflux Disease, H epatitis, Ulcerative Colitis Musculoskeltal Medical History: Reports: Arthritis - HANDS Denies: Gout Skin Medical History: Denies: Eczema, Psoriasis Psychiatric Medical History: Reports: Bipolar Disorder, Depression, Schiz oaffective Disorder Hematology: Denies: Anemia, Sickle Cell Disease, Bleeding Tendencies Past Surgical History Past Surgical History: Reports: Orthopedic Surgery - left ankle Social History Information Source: Patient, [facility] Records 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 denies: CAD, DM, Hypertension, Malignancy Parental Family History Reviewed: Yes Children Family History Reviewed: Yes Sibling(s) Family History Reviewed.: Yes Medication/Allergy Home Medications: Insulin Aspart [Novolog Flexpen] 35 unit SUBCUT DAILY 09/19/12 Clonazepam [Klonopin 1 mg Tablet] 2 mg PO Q12 12/27/12 Citalopram Hydrobromide [Celexa 20 mg Tablet] 20 mg PO Q6AM 08/21/19 Gabapentin [Neurontin 400 mg Capsule] 400 mg PO Q8 08/21/19 Ipratropium/Albuterol Sulfate [Duoneb 3 ml Ampul] 3 ml NEB RTQ6 #[email or web address] 08/26/19 Albuterol Sulfate [Albuterol Sulfate Hfa] 2 puff IH Q4HP PRN 09/16/19 Prednisone [Deltasone 20 mg Tablet] 20 mg PO DAILY 09/16/19 Allergies/Adverse Reactions: No Known Allergies Allergy (Verified 08/21/19 14:30) Review of Systems All systems: reviewed and no additional remarkable complaints except as stated Physical Exam Vital Signs: Temp Pulse Resp BP Pulse Ox 98.1 F 99 15 118/43 L 98 09/18/19 11:19 09/18/19 11:19 09/18/19 11:19 09/18/19 11:19 09/18/19 11:19 Intake & Output 09/17/19 09/18/19 09/19/19 06:59 06:59 06:59 Intake Total 2335 4361 Output Total 550 Balance 1785 4361 Weight 102.1 kg 101.2 kg 100.9 kg General appearance: PRESENT: no acute distress, cooperative, disheveled, obese, well-developed, well-nourished Head exam: PRESENT: atraumatic, normocephalic Eye exam: PRESENT: conjunctiva pale, EOMI. ABSENT: nystagmus, periorbital swelling, scleral icterus Mouth exam: PRESENT: dry mucosa, neck supple, tongue midline Teeth exam: PRESENT: poor dentation Neck exam: ABSENT: carotid bruit, full ROM, JVD, lymphadenopathy, meningismus, tenderness, thyromegaly, tracheal deviation, tracheostomy, other Respiratory exam: PRESENT: decreased breath sounds, prolonged expiratory phas, rhonchi, symmetrical, unlabored, wheezes. ABSENT: rales, retraction, stridor, tachypnea Cardiovascular exam: PRESENT: RRR, +S1, +S2, tachycardia. ABSENT: systolic murmur Pulses: PRESENT: normal radial pulses GI/Abdominal exam: PRESENT: soft. ABSENT: distended, guarding, mass, rebound, t enderness Extremities exam: ABSENT: calf tenderness, clubbing, joint swelling, tenderness Musculoskeletal exam: ABSENT: deformity, dislocation Neurological exam: PRESENT: alert, awake Psychiatric exam: PRESENT: appropriate affect Skin exam: PRESENT: dry, warm Results Laboratory Results: 09/18/19 04:31 09/18/19 04:31 09/18/19 09/18/19 04:31 04:31 WBC 15.4 H RBC 3.70 L Hgb 11.4 L Hct 32.7 L MCV 88 MCH 30.8 MCHC 34.9 RDW 13.6 Plt Count 243 Sodium 134.1 L Potassium 4.5 Chloride 99 Carbon Dioxide 30 Anion Gap 5 BUN 20 Creatinine 0.67 Est GFR ( Amer) > 60 Glucose 206 H Calcium 8.9 Magnesium 2.0 09/15/19 22:40 Troponin I < 0.012 Impressions: Chest X-Ray 09/15/19 22:52 IMPRESSION: No evidence of active intrathoracic disease. Assessment & Plan - Diagnosis (1) Cigarette nicotine dependence Qualifiers: Substance use status: unspecified nicotine-induced disorder Qualified Code(s): F17.219 - Nicotine dependence, cigarettes, with unspecified nicotine- induced disorders Is this a current diagnosis for this admission?: Yes Plan: Stop smoking discussed at length risk and dangers associated with continued tobacco use (2) Acute exacerbation of chronic obstructive pulmonary disease Is this a current diagnosis for this admission?: Yes Plan: Consider holding the Breo patient most stable as he is getting DuoNeb every 6h is placed she could consider adding budesonide 0.5 every 12 hours per nebulizer Generic Name Dose Route Start Last Admin Trade Name Freq PRN Reason Stop Dose Admin Guaifenesin 200 mg 09/16/19 12:38 09/18/19 03:45 Robitussin Syrup 200 Mg/10 Ml Ud Cup PO 10/16/19 12:37 200 mg Q4HP PRN COUGH Methylprednisolone Sodium Succinate 40 mg 09/16/19 06:00 09/18/19 06:18 Solu-Medrol Inj/Pf 40 Mg/1 Ml Sdv IV 10/16/19 05:59 40 mg Q8 GONZALEZ Albuterol/Ipratropium 3 ml 09/16/19 14:00 09/18/19 08:31 Duoneb 3 Ml Ampul NEB 10/16/19 13:59 3 ml RTQ6 GONZALEZ Albuterol/Ipratropium 3 ml 09/17/19 12:58 Duoneb 3 Ml Ampul NEB 10/17/19 12:56 RTQ3HP PRN SHORTNESS OF BREATH Fluticasone Propionate 2 spray 09/16/19 14:30 09/18/19 09:43 Flonase Nasal [place] 50 Mcg/[place] 16 Gm NASL 10/16/19 14:29 2 spr Q12 GONZALEZ Fluticasone/Vilanterol 1 inh 09/16/19 14:00 09/18/19 09:44 Breo 100-25 Mcg Ellipta 14 Dose/Dpi IH 10/16/19 13:59 1 inhaler DAILY GONZALEZ Montelukast Sodium 10 mg 09/17/19 22:00 09/17/19 21:17 Singulair 10 Mg Tablet PO 10/17/19 21:59 10 mg QHS GONZALEZ Doxycycline Hyclate 100 mg/ 250 mls @ 125 mls/hr 09/16/19 10:00 09/18/19 09:43 Dextrose IV 09/23/19 09:59 100 mls/hr Q12 GONZALEZ 100 mls/hr (3) Acute respiratory failure with hypoxia Is this a current diagnosis for this admission?: Yes Plan: Patient admits to dysphagia consider modified barium swallow (4) Uncontrolled daytime somnolence Is this a current diagnosis for this admission?: Yes Plan: schedule for sleep study at discharge - Time Time Spent with patient: 50 min Time Spent: 30 to 50 Minutes Smoking Cessation Education: over 10 minutes
[2019-09-18] MEDS: MONTELUKAST SODIUM 10 MG TABLET PO SCH (21:51)
[2019-09-19] MEDS: ACETAMINOPHEN 325 MG TABLET PO PRN (01:56)
[2019-09-19] MEDS: IPRATROPIUM/ALBUTEROL 0.5-2.5 MG/3 ML AMPUL NEB SCH ×4 (02:16→20:49)
[2019-09-19] MEDS: OXYCODONE-ACETAMINOPHEN 5-325 MG TABLET PO PRN ×3 (02:33→21:51)
[2019-09-19] MEDS: GABAPENTIN 400 MG CAPSULE PO SCH ×3 (05:45→21:51)
[2019-09-19] MEDS: CITALOPRAM HYDROBROMIDE 20 MG TABLET PO SCH (05:45)
[2019-09-19] MEDS: HEPARIN SOD (PORCINE) 5,000 UNIT/ML 1 ML VIAL SUBCUT SCH ×3 (05:45→21:52)
[2019-09-19 06:00] LABS: HEMATOCRIT 34.5 % (37.9-51.0); MEAN CORPUSCULAR HEMOGLOBIN 30.5 pg (27.0-33.4); MEAN CORPUSCULAR HGB CONC 34.7 g/dL (32.0-36.0); MEAN CORPUSCULAR VOLUME 88 fl (80-97); PLATELET COUNT 237 10^3/uL (150-450); RED BLOOD COUNT 3.92 10^6/uL (4.35-5.55); RED CELL DISTRIBUTION WIDTH 13.3 % (11.5-14.0); WHITE BLOOD COUNT 15.4 10^3/uL (4.0-10.5)
[2019-09-19 06:05] LABS: ANION GAP 5 (5-19); BLOOD UREA NITROGEN 24 mg/dL (7-20); CALCIUM 8.7 mg/dL (8.4-10.2); GLUCOSE 210 mg/dL (75-110); POTASSIUM 4.6 mmol/L (3.6-5.0)
[2019-09-19 06:10] LABS: CARBON DIOXIDE 31 mmol/L (22-30); CHLORIDE 101 mmol/L (98-107)
[2019-09-19] MEDS: INSULIN LISPRO 100 UNIT/ML 3 ML VIAL SUBCUT SCH ×7 (07:40→21:52)
[2019-09-19] MEDS: GUAIFENESIN 600 MG TABLET.SA PO SCH ×2 (09:54→21:52)
[2019-09-19] MEDS: INSULIN GLARGINE,HUM.REC.ANLOG 1,000 UNIT/10 ML VIAL SUBCUT SCH (09:54)
[2019-09-19] MEDS: CLONAZEPAM 1 MG TABLET PO SCH ×2 (09:54→21:51)
[2019-09-19] MEDS: FLUTICASONE NASAL SPRAY 50 MCG/SPRY 120 SPRAY/16 GM NASL SCH ×2 (09:55→21:51)
[2019-09-19] MEDS: FLUTICASONE/VILANTEROL 100-25 MCG/DOSE IH SCH (09:55)
[2019-09-19] MEDS: METHYLPREDNISOLONE INJ 40 MG/1 ML SDV IV SCH (09:55)
[2019-09-19] MEDS: DOXYCYCLINE HYCLATE 100 MG in DEXTROSE 5%-WATER 250 ML IV SCH ×2 (09:55→21:50)
--- NOTE | 2019-09-19 10:00 | PDOC PROGRESS REPORT ---
Subjective Progress Note for:: 09/19/19 Subjective:: Just returned from modified barium swallow. Official report is not available yet. The patient does report that they talked about food getting hung up but not actually aspirating. Await final interpretation. Comfortable at 1 L nasal cannula oxygen. Reason For Visit: ACUTE HYPOXIC RESPIRATORY FAILURE,ACUTE Physical Exam Vital Signs: Temp Pulse Resp BP Pulse Ox 97.6 F 109 H 20 129/65 H 95 09/19/19 07:16 09/19/19 08:46 09/19/19 08:46 09/19/19 07:16 09/19/19 08:46 Intake & Output 09/18/19 09/19/19 09/20/19 06:59 06:59 06:59 Intake Total 4361 3127 Balance 4361 3127 Weight 101.2 kg 101.8 kg General appearance: PRESENT: no acute distress, cooperative, well-developed Head exam: PRESENT: atraumatic, normocephalic Eye exam: PRESENT: conjunctiva pink. ABSENT: scleral icterus Ear exam: PRESENT: normal external ear exam. ABSENT: bleeding, drainage Mouth exam: PRESENT: moist, tongue midline Neck exam: PRESENT: full ROM. ABSENT: JVD, lymphadenopathy Respiratory exam: PRESENT: clear to auscultation marshall, prolonged expiratory phas, symmetrical, unlabored. ABSENT: rales, rhonchi, tachypnea, wheezes Cardiovascular exam: PRESENT: RRR, +S1, +S2. ABSENT: diastolic murmur, irregular rhythm, systolic murmur GI/Abdominal exam: PRESENT: distended, normal bowel sounds, soft. ABSENT: guarding, tenderness Rectal exam: PRESENT: deferred Gentrourinary exam: ABSENT: indwelling catheter Extremities exam: ABSENT: pedal edema Musculoskeletal exam: PRESENT: ambulatory, normal inspection. ABSENT: deformity, dislocation Neurological exam: PRESENT: alert, awake, oriented to person, oriented to place, oriented to time, oriented to situation, CN II-XII grossly intact. ABSENT: altered Psychiatric exam: PRESENT: appropriate affect. ABSENT: agitated, anxious Focused psych exam: ABSENT: delusional, paranoid, restlessness Skin exam: PRESENT: dry, normal color, warm. ABSENT: rash Results Laboratory Results: 09/19/19 05:33 09/19/19 05:33 09/19/19 09/19/19 05:33 05:33 WBC 15.4 H RBC 3.92 L Hgb 12.0 L Hct 34.5 L MCV 88 MCH 30.5 MCHC 34.7 RDW 13.3 Plt Count 237 Sodium 136.6 L Potassium 4.6 Chloride 101 Carbon Dioxide 31 H Anion Gap 5 BUN 24 H Creatinine 0.78 Est GFR ( Amer) > 60 Glucose 210 H Calcium 8.7 09/15/19 22:40 Troponin I < 0.012 Impressions: Chest X-Ray 09/15/19 22:52 IMPRESSION: No evidence of active intrathoracic disease. Assessment and Plan - Diagnosis (1) Acute respiratory failure with hypoxia Is this a current diagnosis for this admission?: Yes Plan: Currently down to 1 L nasal cannula. Patient states that at home he typically uses 1 to 2 L/min nasal cannula. (2) Acute exacerbation of chronic obstructive pulmonary disease Is this a current diagnosis for this admission?: Yes Plan: The patient did have a modified barium swallow. Duration but no chloe aspiration. The patient might benefit from ENT consult as an outpatient. Continue current medication regimen. I have also ordered a nocturnal oximetry. The patient seems to be benefiting from CPAP at night. 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 (4) Leukocytosis Qualifiers: Leukocytosis type: unspecified Qualified Code(s): D72.829 - Elevated white blood cell count, unspecified Is this a current diagnosis for this admission?: Yes Plan: White blood cell count unchanged from yesterday. And changing the patient to oral prednisone. This will likely allow the white blood cells to decrease. (5) Anxiety Is this a current diagnosis for this admission?: Yes Plan: Currently stable on home medication regimen (6) Cigarette nicotine dependence Qualifiers: Substance use status: unspecified nicotine-induced disorder Qualified Code(s): F17.219 - Nicotine dependence, cigarettes, with unspecified nicotine- induced disorders Is this a current diagnosis for this admission?: Yes Plan: Continue nicotine patch and encourage cessation (7) Pain, chronic Qualifiers: Chronic pain type: other chronic pain Qualified Code(s): G89.29 - Other chronic pain Is this a current diagnosis for this admission?: Yes Plan: The patient was being seen in a chronic pain management center. I have ordered increased analgesia. He will like to return to some type of pain management as an outpatient. (8) Cushingoid side effect of steroids Is this a current diagnosis for this admission?: Yes Plan: The goal is to wean from steroids completely. This should allow slow resolution of cushingoid features. - Time Time Spent with patient: 15-24 minutes Medications reviewed and adjusted accordingly: Yes Anticipated discharge: Home Within: within 48 hours
--- NOTE | 2019-09-19 10:10 | RADIOLOGY REPORT (SQ) ---
EXAM DESCRIPTION: COOKIE SWALLOW IMAGES COMPLETED DATE/TIME: 09/19/2019 9:58 am REASON FOR STUDY: Possible aspiration leading to chronic lung diseas COMPARISON: None. TECHNIQUE: Videofluoroscopic swallowing examination was performed in conjunction with speech patholo gy. Videofluoroscopic imaging was obtained and reviewed and these are the findings: RADIATION DOSE: Fluoro time 2.43 minutes 1 images saved to PACS. LIMITATIONS: None FINDINGS: The patient was brought into the fluoro room and placed upright on a modified barium swall ow chair. The patient was then given multiple consistencies mixed with barium to swallow under live fluoroscopic video guidance. According to the Speech Pathologist there was laryngeal penetration wit h thin barium. No aspiration identified. All other consistencies swallowed without incident. Please refer to the speech pathology report for further details. IMPRESSION: LARYNGEAL PENETRATION WITHOUT ASPIRATION SEEN WITH THIN BARIUM. PLEASE SEE SPEECH PATHOL OGIST REPORT FOR OTHER FINDINGS AND RECOMMENDATIONS. COMMENT: NONE Quality ID [id number]: Final reports for procedures using fluoroscopy that document radiation exposure adeline natali, or exposure time and number of fluorographic images (if radiation exposure indices are not avail able) TECHNICAL DOCUMENTATION: JOB ID: [id number] 2010 [employer]- All Rights Reserved Reading location - IP/workstation name: [email or web address] [id number]
[2019-09-19] MEDS: GUAIFENESIN SYRP 200 MG/10 ML UDC PO PRN ×2 (10:39→22:18)
--- NOTE | 2019-09-19 12:12 | ST Inp Modified Barium Swallow ---
Medical Diagnosis - Medical Diagnoses Medical Diagnosis Description & ICD-10 Code(s): acute respiratory failure - ICD-10 Tx Diagnosis Coding (1) Acute exacerbation of chronic obstructive pulmonary disease ICD-10 Code(s): J44.1 - CHRONIC OBSTRUCTIVE PULMONARY DISEASE W (ACUTE) EXACERBATION (2) Acute respiratory failure with hypoxia ICD-10 Code(s): J96.01 - ACUTE RESPIRATORY FAILURE WITH HYPOXIA Inpatient MBS - General Date: 09/19/19 Date of Onset: 09/15/19 - History -: Medical - Patient admitted 09/15/2019. Prior Medical History significant for COPD, discharged from [facility] 08/24/2019 and admitted to hospital in [place] sometime over a week ago and reported discharge home 5 days ago, again for exacerbation of COPD. BiPAP started due to severity of wheezing, patient reported could not get breath in. Chest X-Ray indicates chronic parenchymal lung change, lungs grossly clear. Current Diagnoses include: acute respiratory failure with hypoxia, acute exacerbation of chronic obstructive pulmonary disease, hyperglycemia due to type II diabetes, leukocytosis, anxiety, cigarette/nicotine dependence, chronic pain, & Cushingoid side effect of steroids. spoke with Dr. Flores regarding patient on 09/18/2019. MD indicated patient reporting feeling of fluid in back of throat and that MBSS indicated per pulmonology. Medications: Medications Reviewed Allergies: No known allergies - Subjective Current Nutritional Means: PO Current Symptoms: c/o Globus sensation Pain: Patient reports, 4/5 - back pain, chronic - Objective Assessment: Upright, Left Lateral - Food Trials Food Trials Used: Thin liquids, Pureed, Regular The Patient: Was Able to Self Feed - Assessment Labial Function: Within Normal Limits Lingual Function: Within Normal Limits Mandibular Function: Within Normal Limits Dentition: Dentures-Upper Velo-Pharyngeal Function: Unremarkable Laryngeal Function: clear voicing - Pharyngeal Stage Initiation of Pharyngeal Stage: Delayed - mild delay, some dumping of liquids into pharynx Decreased Laryngeal Elevation: No Reduced Velo-Pharyngeal Closure: no Reduced Pressure Generation: No Reduced Tongue Base Retraction: No Reduced Thyro-Hyiod Approximation: No Reduced Epiglottic Excursion: No Reduced Pharyngeal Peristalsis: No Post Swallow Residuals in Valleculae: None Post Swallow Residuals in Pyriforms: Mild - of note, patient was commenting on sensation of residue throughout study even when no residue was observed Pahryngeal Stage Comments: of note, patient seemed to have a low sitting larynx, some possible signs of soft tissue changes - Impression/Summary Laryngeal Penetration: Yes - consistent laryngeal penetration without aspiration seen with liquids, not with other textures Tracheal Aspiration: no Compensatory Strategies: Recommend reduced rate of consumption for liquids. Patient Presents With: Pharyngeal stage dysph. - mild Risk of Aspiration: Mild Risk of Nutritional Compromise: None - Recommendations Solid Diet Recommendations: Regular Liquid Diet Recommendations: Thin Dysphagia Therapy with COMMUNICATIONS TECHNOLOGIST: No Recommended Techniques: Small Bites and Sips Other Recommendations: Patient may benefit from ENT consult or direct visualization of pharyngeal cavity due to possible signs of soft tissue changes, difficult to fully assess on fluoroscopy. - Time Total Time: 30 Total Timed Minutes: 30
[2019-09-19] MEDS: MONTELUKAST SODIUM 10 MG TABLET PO SCH (21:52)
[2019-09-20] MEDS: IPRATROPIUM/ALBUTEROL 0.5-2.5 MG/3 ML AMPUL NEB SCH ×4 (02:25→20:22)
[2019-09-20] MEDS: GABAPENTIN 400 MG CAPSULE PO SCH ×3 (05:04→21:14)
[2019-09-20] MEDS: CITALOPRAM HYDROBROMIDE 20 MG TABLET PO SCH (05:04)
[2019-09-20] MEDS: HEPARIN SOD (PORCINE) 5,000 UNIT/ML 1 ML VIAL SUBCUT SCH ×3 (05:04→21:14)
[2019-09-20] MEDS: INSULIN LISPRO 100 UNIT/ML 3 ML VIAL SUBCUT SCH ×6 (10:29→21:22)
[2019-09-20] MEDS: INSULIN GLARGINE,HUM.REC.ANLOG 1,000 UNIT/10 ML VIAL SUBCUT SCH (10:43)
[2019-09-20] MEDS: PREDNISONE 20 MG TABLET PO SCH (10:43)
[2019-09-20] MEDS: CLONAZEPAM 1 MG TABLET PO SCH ×2 (10:43→21:14)
[2019-09-20] MEDS: GUAIFENESIN 600 MG TABLET.SA PO SCH ×2 (10:43→21:14)
[2019-09-20] MEDS: DOXYCYCLINE HYCLATE 100 MG in DEXTROSE 5%-WATER 250 ML IV SCH ×2 (10:44→21:15)
[2019-09-20] MEDS: FLUTICASONE/VILANTEROL 100-25 MCG/DOSE IH SCH (10:44)
[2019-09-20] MEDS: FLUTICASONE NASAL SPRAY 50 MCG/SPRY 120 SPRAY/16 GM NASL SCH ×2 (10:44→21:14)
[2019-09-20] MEDS: OXYCODONE-ACETAMINOPHEN 5-325 MG TABLET PO PRN ×2 (10:56→21:23)
--- NOTE | 2019-09-20 17:17 | PDOC PROGRESS REPORT ---
Subjective Progress Note for:: 09/20/19 Subjective:: Still short of breath especially with ambulation. He is maintaining reasonable saturation on 1 L nasal cannula at rest. I will ask them to ambulate him on his oxygen to see how far he drops. Reason For Visit: ACUTE HYPOXIC RESPIRATORY FAILURE,ACUTE Physical Exam Vital Signs: Temp Pulse Resp BP Pulse Ox 98.3 F 96 19 130/60 H 95 09/20/19 16:14 09/20/19 16:14 09/20/19 16:14 09/20/19 16:14 09/20/19 16:14 Pulse Oximeter Nocturnal Start: 09/19/19 18:03 Freq: RTQ4 Status: Complete Protocol: Document 09/20/19 05:02 LDI (Rec: 09/20/19 05:03 LDI [id number]) Nocturnal Pulse Oximetry Equipment Usage Equipment in Use Oxygen Delivery Method (includes room Nasal Cannula air) O2 Sat by Pulse Oximetry (92-100) 98 Continuous SpO2 Machine # N7 Intake & Output 09/19/19 09/20/19 09/21/19 06:59 06:59 06:59 Intake Total 3127 1971 1421 Balance 3127 1971 142 Weight 101.8 kg 101.7 kg General appearance: PRESENT: cooperative, mild distress, well-developed Ear exam: PRESENT: normal external ear exam. ABSENT: bleeding, drainage Respiratory exam: PRESENT: prolonged expiratory phas, symmetrical, wheezes - Expiratory, other - Very limited inspiratory phase. ABSENT: crackles, rales, stridor, tachypnea Cardiovascular exam: PRESENT: RRR, +S1, +S2 GI/Abdominal exam: PRESENT: distended, normal bowel sounds, soft. ABSENT: tenderness Rectal exam: PRESENT: deferred Gentrourinary exam: ABSENT: indwelling catheter Extremities exam: ABSENT: pedal edema Musculoskeletal exam: PRESENT: ambulatory, normal inspection. ABSENT: deformity, dislocation Neurological exam: PRESENT: alert, awake, oriented to person, oriented to place, oriented to time, oriented to situation, CN II-XII grossly intact. ABSENT: altered Psychiatric exam: PRESENT: appropriate affect. ABSENT: agitated, anxious Focused psych exam: ABSENT: delusional, paranoid, restlessness Skin exam: PRESENT: dry, normal color, warm. ABSENT: rash Results Laboratory Results: 09/19/19 05:33 09/19/19 05:33 09/15/19 22:40 Troponin I < 0.012 Impressions: Chest X-Ray 09/15/19 22:52 IMPRESSION: No evidence of active intrathoracic disease. Modified Barium Swallow 09/19/19 00:00 IMPRESSION: LARYNGEAL PENETRATION WITHOUT ASPIRATION SEEN WITH THIN BARIUM. PLEASE SEE SPEECH PATHOLOGIST REPORT FOR OTHER FINDINGS AND RECOMMENDATIONS. Assessment and Plan - Diagnosis (1) Acute respiratory failure with hypoxia Is this a current diagnosis for this admission?: Yes Plan: Continue current regimen. Oxygen is down to baseline. (2) Acute exacerbation of chronic obstructive pulmonary disease Is this a current diagnosis for this admission?: Yes Plan: Will likely depend on aggressive nebulizer regimen and transition to inhaler therapy (3) Hyperglycemia due to type 2 diabetes mellitus Qualifiers: Diabetes mellitus halfway insulin use: with halfway use Qualified Code(s): E11.65 - Type 2 diabetes mellitus with hyperglycemia; Z79.4 - termite control servicer (current) use of insulin Is this a current diagnosis for this admission?: Yes Plan: With decreasing steroid dosing the patient's sugars actually were too low. We will cut back on the long-acting insulin and decrease the mealtime short acting insulin (4) Leukocytosis Qualifiers: Leukocytosis type: unspecified Qualified Code(s): D72.829 - Elevated white blood cell count, unspecified Is this a current diagnosis for this admission?: Yes Plan: Was still elevated at 15,000 yesterday. Will recheck tomorrow. Likely due to the steroids. (5) Anxiety Is this a current diagnosis for this admission?: Yes Plan: Continue current regimen (6) Cigarette nicotine dependence Qualifiers: Substance use status: unspecified nicotine-induced disorder Qualified Code(s): F17.219 - Nicotine dependence, cigarettes, with unspecified nicotine- induced disorders Is this a current diagnosis for this admission?: Yes Plan: Continue nicotine patch (7) Pain, chronic Qualifiers: Chronic pain type: other chronic pain Qualified Code(s): G89.29 - Other chronic pain Is this a current diagnosis for this admission?: Yes Plan: The patient was being seen in a chronic pain management center. I have ordered increased analgesia. He will like to return to some type of pain management as an outpatient. (8) Cushingoid side effect of steroids Is this a current diagnosis for this admission?: Yes Plan: The goal is to wean from steroids completely. This should allow slow resolution of cushingoid features. - Time Time Spent with patient: 15-24 minutes Medications reviewed and adjusted accordingly: Yes Anticipated discharge: Home Within: within 48 hours
[2019-09-20] MEDS: MONTELUKAST SODIUM 10 MG TABLET PO SCH (21:14)
[2019-09-21] MEDS: IPRATROPIUM/ALBUTEROL 0.5-2.5 MG/3 ML AMPUL NEB SCH ×3 (02:12→13:48)
[2019-09-21 05:00] LABS: HEMATOCRIT 35.3 % (37.9-51.0); HEMOGLOBIN 12.4 g/dL (13.5-17.0); MEAN CORPUSCULAR HGB CONC 35.2 g/dL (32.0-36.0); MEAN CORPUSCULAR VOLUME 88 fl (80-97); PLATELET COUNT 227 10^3/uL (150-450); RED CELL DISTRIBUTION WIDTH 13.6 % (11.5-14.0); WHITE BLOOD COUNT 13.6 10^3/uL (4.0-10.5)
[2019-09-21 05:13] LABS: BLOOD UREA NITROGEN 19 mg/dL (7-20); CALCIUM 8.9 mg/dL (8.4-10.2); GLUCOSE 195 mg/dL (75-110); POTASSIUM 4.1 mmol/L (3.6-5.0)
[2019-09-21 05:18] LABS: ANION GAP 7 (5-19); CARBON DIOXIDE 31 mmol/L (22-30); CHLORIDE 98 mmol/L (98-107)
[2019-09-21] MEDS: GABAPENTIN 400 MG CAPSULE PO SCH (05:19)
[2019-09-21] MEDS: CITALOPRAM HYDROBROMIDE 20 MG TABLET PO SCH (05:19)
[2019-09-21] MEDS: HEPARIN SOD (PORCINE) 5,000 UNIT/ML 1 ML VIAL SUBCUT SCH ×2 (05:19→14:25)
[2019-09-21 05:47] LABS: ABSOLUTE LYMPHOCYTES# (MANUAL) 2.4 10^3/uL (0.5-4.7); ABSOLUTE MONOCYTES # (MANUAL) 0.5 10^3/uL (0.1-1.4); BAND NEUTROPHILS % (MANUAL) 1 % (3-5); BASOPHILS % (MANUAL) 0 % (0-2); EOSINOPHILS % (MANUAL) 1 % (0-6); LYMPHOCYTES % (MANUAL) 15 % (13-45); MONOCYTES % (MANUAL) 4 % (3-13); SEGMENTED NEUTROPHILS % (MAN) 76 % (42-78); TOTAL CELLS COUNTED 100
[2019-09-21 05:49] LABS: PLATELET COMMENT ADEQUATE
[2019-09-21] MEDS: INSULIN LISPRO 100 UNIT/ML 3 ML VIAL SUBCUT SCH ×4 (08:19→11:51)
[2019-09-21] MEDS: PREDNISONE 20 MG TABLET PO SCH (09:48)
[2019-09-21] MEDS: FLUTICASONE NASAL SPRAY 50 MCG/SPRY 120 SPRAY/16 GM NASL SCH (09:48)
[2019-09-21] MEDS: GUAIFENESIN 600 MG TABLET.SA PO SCH (09:48)
[2019-09-21] MEDS: FLUTICASONE/VILANTEROL 100-25 MCG/DOSE IH SCH (09:48)
[2019-09-21] MEDS: CLONAZEPAM 1 MG TABLET PO SCH (09:48)
[2019-09-21] MEDS: DOXYCYCLINE HYCLATE 100 MG in DEXTROSE 5%-WATER 250 ML IV SCH (09:49)
[2019-09-21] MEDS: OXYCODONE-ACETAMINOPHEN 5-325 MG TABLET PO PRN (09:53)
[2019-09-21] MEDS ORDERED: INSULIN GLARGINE,HUM.REC.ANLOG 1,000 UNIT/10 ML VIAL SUBCUT SCH (10:00)
--- NOTE | 2019-09-21 11:06 | PDOC DISCHARGE SUMMARY ---
Impression - Admit/DC Date/PCP Admission Date/Primary Care Provider: 09/16/19 01:07 Discharge Date: 09/21/19 - Discharge Diagnosis (1) Acute respiratory failure with hypoxia Is this a current diagnosis for this admission?: Yes (2) Acute exacerbation of chronic obstructive pulmonary disease Is this a current diagnosis for this admission?: Yes (3) Hyperglycemia due to type 2 diabetes mellitus Is this a current diagnosis for this admission?: Yes (4) Leukocytosis Is this a current diagnosis for this admission?: Yes (5) Anxiety Is this a current diagnosis for this admission?: Yes (6) Cigarette nicotine dependence Is this a current diagnosis for this admission?: Yes (7) Pain, chronic Is this a current diagnosis for this admission?: Yes (8) Cushingoid side effect of steroids Is this a current diagnosis for this admission?: Yes - Additional Information Discharge Diet: As Tolerated Discharge Activity: Balance Activity w/Rest Referrals: [facility] [Outside] - 10/04/19 3:00 pm (Telephone appointment with Dr. Camargo.) Prescriptions: Ipratropium/Albuterol Sulfate [Duoneb 3 ml Ampul] 3 ml NEB RTQ6 30 Days #120 vial.neb Clonazepam [Klonopin 1 mg Tablet] 2 mg PO Q12 7 Days #14 tablet Oxycodone HCl/Acetaminophen [Percocet 5-325 mg Tablet] 1 tab PO Q8HP PRN 7 Days #15 tablet PRN Reason: Budesonide [Pulmicort Neb 0.5 mg/2 ml Ampul] 0.5 mg NEB RTQ12 15 Days #30 ampul.neb Montelukast Sodium [Singulair 10 mg Tablet] 10 mg PO QHS 15 Days #15 tablet Doxycycline Hyclate [Vibramycin 100 mg Tablet] 100 mg PO BID 7 Days #14 tablet Home Medications: Insulin Aspart [Novolog Flexpen] 35 unit SUBCUT DAILY 09/19/12 Clonazepam [Klonopin 1 mg Tablet] 2 mg PO Q12 12/27/12 Citalopram Hydrobromide [Celexa 20 mg Tablet] 20 mg PO Q6AM 08/21/19 Gabapentin [Neurontin 400 mg Capsule] 400 mg PO Q8 08/21/19 Ipratropium/Albuterol Sulfate [Duoneb 3 ml Ampul] 3 ml NEB RTQ6 #120 vial.neb 08/26/19 Albuterol Sulfate [Albuterol Sulfate Hfa] 2 puff IH Q4HP PRN 09/16/19 Prednisone [Deltasone 20 mg Tablet] 20 mg PO DAILY 09/16/19 Budesonide [Pulmicort Neb 0.5 mg/2 ml Ampul] 0.5 mg NEB RTQ12 15 Days #30 ampul.neb 09/21/19 Clonazepam [Klonopin 1 mg Tablet] 2 mg PO Q12 7 Days #14 tablet 09/21/19 Doxycycline Hyclate [Vibramycin 100 mg Tablet] 100 mg PO BID 7 Days #14 tablet 09/21/19 Fluticasone Propionate [Flonase Nasal Napoleon 50 Mcg/Napoleon 16 gm] 2 spray NASL Q12 spray.pump 09/21/19 Fluticasone/Vilanterol [Breo 100-25 Mcg Ellipta 14 Dose/Dpi] 1 inh IH DAILY inhaler 09/21/19 Guaifenesin [Mucinex Sr 600 mg Tablet.sa] 600 mg PO Q12 tablet.sa 09/21/19 Guaifenesin [Robitussin Syrup 200 mg/10 ml Ud Cup] 200 mg PO Q4HP PRN udc 09/21/19 Ipratropium/Albuterol Sulfate [Duoneb 3 ml Ampul] 3 ml NEB RTQ6 30 Days #120 vial.neb 09/21/19 Montelukast Sodium [Singulair 10 mg Tablet] 10 mg PO QHS 15 Days #15 tablet 09/21/19 Oxycodone HCl/Acetaminophen [Percocet 5-325 mg Tablet] 1 tab PO Q8HP PRN 7 Days #15 tablet 09/21/19 History of Present Illiness History of Present Illness: Per Dr. Kong's history and physical SAROJ ALFONSO is a 53 year old male with a history of COPD who was discharged from this facility on August 23 and wound up back in the hospital in [place] sometime over a week ago and said he was discharged home 5 days ago, once again for an exacerbation of COPD. He was put on a short prednisone burst that ended yesterday. He said today he started having worsening shortness of breath. He is not had any fevers. He is not had any cough, he just could not get breath in. His chest x-ray is clear. He had to be put on BiPAP because of the severity of his wheezing. Hospital Course Hospital Course: (1) Acute respiratory failure with hypoxia Is this a current diagnosis for this admission?: Yes Plan: Continue current regimen. Oxygen is down to baseline. (2) Acute exacerbation of chronic obstructive pulmonary disease Is this a current diagnosis for this admission?: Yes Plan: Will likely depend on aggressive nebulizer regimen and transition to inhaler therapy (3) Hyperglycemia due to type 2 diabetes mellitus Qualifiers: Diabetes mellitus terminal makeup operator insulin use: with terminal makeup operator use Qualified Code(s): E11.65 - Type 2 diabetes mellitus with hyperglycemia; Z79.4 - termite treater (current) use of insulin Is this a current diagnosis for this admission?: Yes Plan: With decreasing steroid dosing the patient's sugars actually were too low. We will cut back on the long-acting insulin and decrease the mealtime short acting insulin (4) Leukocytosis Qualifiers: Leukocytosis type: unspecified Qualified Code(s): D72.829 - Elevated white blood cell count, unspecified Is this a current diagnosis for this admission?: Yes Plan: Was still elevated at 15,000 yesterday. Will recheck tomorrow. Likely due to the steroids. (5) Anxiety Is this a current diagnosis for this admission?: Yes Plan: Continue current regimen (6) Cigarette nicotine dependence Qualifiers: Substance use status: unspecified nicotine-induced disorder Qualified Code(s): F17.219 - Nicotine dependence, cigarettes, with unspecified nicotine- induced disorders Is this a current diagnosis for this admission?: Yes Plan: Continue nicotine patch (7) Pain, chronic Qualifiers: Chronic pain type: other chronic pain Qualified Code(s): G89.29 - Other chronic pain Is this a current diagnosis for this admission?: Yes Plan: The patient was being seen in a chronic pain management center. I have ordered increased analgesia. He will like to return to some type of pain management as an outpatient. (8) Cushingoid side effect of steroids Is this a current diagnosis for this admission?: Yes Plan: The goal is to wean from steroids completely. This should allow slow resolution of cushingoid features. This was a difficult hospital course. The patient's treatment prior to admission was inconsistent over the last several months and involved multiple hospitalizations. He has been on intermittent steroid dosing to the point where he has a cushingoid appearance. His multiple relapses a few more related to inconsistency in discharge treatment based on the financial ability to afford medications. He was seen by the trapper animal. He will depend mostly on nebulizer treatments at discharge until he can see the trapper animal. He does have a Medicaid application pending and should eventually be able to obtain BiPAP or CPAP for home use. Physical Exam Vital Signs: Temp Pulse Resp BP Pulse Ox 98.1 F 86 18 144/61 H 97 09/21/19 07:31 09/21/19 08:06 09/21/19 08:06 09/21/19 07:31 09/21/19 08:06 Pulse Oximeter Ambulatory Start: 09/20/19 18:03 Freq: RTDAILY Status: Complete Protocol: Document 09/20/19 20:57 CMI (Rec: 09/20/19 20:59 CMI [id number]) Exercise Oximetry Treatment Ambulating SpO2 Charge Now Yes Oxygen Delivery Method Nasal Cannula Oxygen Flow Rate (L/min) 2 FIO2 (% Oxygen) 28 Exercise O2 Saturation by Pulse Oximetry 91 Pulse Rate 111 Respiratory Rate 20 Oximetry Exercise Interval (min) 5 Exercise Tolerance Good Additional RT Notes Other pt walked 3 west and south and back. pt was on 2lpm NC. sat 91-93%. Pt stated he was still light headed. States he wears 2lpm NC at home Pulse Oximeter Nocturnal Start: 09/19/19 18:03 Freq: RTQ4 Status: Complete Protocol: Document 09/20/19 05:02 LDI (Rec: 09/20/19 05:03 LDI [id number]) Nocturnal Pulse Oximetry Equipment Usage Equipment in Use Oxygen Delivery Method (includes room Nasal Cannula air) O2 Sat by Pulse Oximetry (92-100) 98 Continuous SpO2 Machine # N7 Intake & Output 09/20/19 09/21/19 09/22/19 06:59 06:59 06:59 Intake Total 1970 3259 Balance 1970 3259 Weight 101.7 kg 101.7 kg General appearance: PRESENT: no acute distress Respiratory exam: PRESENT: clear to auscultation marshall, symmetrical, unlabored. ABSENT: rales, rhonchi, tachypnea, wheezes Cardiovascular exam: PRESENT: RRR, +S1, +S2 GI/Abdominal exam: PRESENT: distended - Protuberant abdomen, soft. ABSENT: tenderness Results Laboratory Results: WBC 13.6 10^3/uL (4.0-10.5) H 09/21/19 04:44 RBC 4.00 10^6/uL (4.35-5.55) L 09/21/19 04:44 Hgb 12.4 g/dL (13.5-17.0) L 09/21/19 04:44 Hct 35.3 % (37.9-51.0) L 09/21/19 04:44 MCV 88 fl (80-97) 09/21/19 04:44 MCH 31.0 pg (27.0-33.4) 09/21/19 04:44 MCHC 35.2 g/dL (32.0-36.0) 09/21/19 04:44 RDW 13.6 % (11.5-14.0) 09/21/19 04:44 Plt Count 227 10^3/uL (150-450) 09/21/19 04:44 Lymph % (Auto) Not Reportable 09/21/19 04:44 [place] % (Auto) Not Reportable 09/21/19 04:44 Eos % (Auto) Not Reportable 09/21/19 04:44 Baso % (Auto) Not Reportable 09/21/19 04:44 Absolute Neuts (auto) Not Reportable 09/21/19 04:44 Absolute Lymphs (auto) Not Reportable 09/21/19 04:44 Absolute Monos (auto) Not Reportable 09/21/19 04:44 Absolute Eos (auto) Not Reportable 09/21/19 04:44 Absolute Basos (auto) Not Reportable 09/21/19 04:44 Total Counted 100 09/21/19 04:44 Seg Neutrophils % Not Reportable 09/21/19 04:44 Seg Neuts % (Manual) 76 % (42-78) 09/21/19 04:44 Band Neutrophils % 1 % (3-5) L 09/21/19 04:44 Lymphocytes % (Manual) 15 % (13-45) 09/21/19 04:44 Atypical Lymphs % 3 % (0) 09/21/19 04:44 Monocytes % (Manual) 4 % (3-13) 09/21/19 04:44 Eosinophils % (Manual) 1 % (0-6) 09/21/19 04:44 Basophils % (Manual) 0 % (0-2) 09/21/19 04:44 Abs Neuts (Manual) 10.5 10^3/uL (1.7-8.2) H 09/21/19 04:44 Abs Lymphs (Manual) 2.4 10^3/uL (0.5-4.7) 09/21/19 04:44 Abs Monocytes (Manual) 0.5 10^3/uL (0.1-1.4) 09/21/19 04:44 Absolute Eos (Manual) 0.1 10^3/uL (0.0-0.6) 09/21/19 04:44 Abs Basophils (Manual) 0.0 10^3/uL (0.0-0.2) 09/21/19 04:44 Platelet Comment ADEQUATE 09/21/19 04:44 Sodium 135.6 mmol/L (137-145) L 09/21/19 04:44 Potassium 4.1 mmol/L (3.6-5.0) 09/21/19 04:44 Chloride 98 mmol/L (98-107) 09/21/19 04:44 Carbon Dioxide 31 mmol/L (22-30) H 09/21/19 04:44 Anion Gap 7 (5-19) 09/21/19 04:44 BUN 19 mg/dL (7-20) 09/21/19 04:44 Creatinine 0.83 mg/dL (0.52-1.25) 09/21/19 04:44 Est GFR ( Amer) > 60 (>60) 09/21/19 04:44 Est GFR (MDRD) Non-Af > 60 (>60) 09/21/19 04:44 Glucose 195 mg/dL (75-110) H 09/21/19 04:44 POC Glucose 201 mg/dL (70-110) H 09/21/19 07:31 Calcium 8.9 mg/dL (8.4-10.2) 09/21/19 04:44 Magnesium 2.0 mg/dL (1.6-2.3) 09/18/19 04:31 Total Bilirubin 0.3 mg/dL (0.2-1.3) 09/15/19 22:40 Direct Bilirubin 0.0 mg/dL (0.0-0.4) 09/15/19 22:40 Neonat Total Bilirubin Not Reportable 09/15/19 22:40 Neonat Direct Bilirubin Not Reportable 09/15/19 22:40 Neonat Indirect Bili Not Reportable 09/15/19 22:40 AST 23 U/L (17-59) 09/15/19 22:40 ALT 36 U/L (<50) 09/15/19 22:40 Alkaline Phosphatase 76 U/L (38-126) 09/15/19 22:40 Troponin I < 0.012 ng/mL 09/15/19 22:40 Total Protein 6.5 g/dL (6.3-8.2) 09/15/19 22:40 Albumin 3.9 g/dL (3.5-5.0) 09/15/19 22:40 09/15/19 22:40 Troponin I < 0.012 Impressions: Chest X-Ray 09/15/19 22:52 IMPRESSION: No evidence of active intrathoracic disease. Modified Barium Swallow 09/19/19 00:00 IMPRESSION: LARYNGEAL PENETRATION WITHOUT ASPIRATION SEEN WITH THIN BARIUM. PLEASE SEE SPEECH PATHOLOGIST REPORT FOR OTHER FINDINGS AND RECOMMENDATIONS. Plan Health Concerns: Severe COPD in a patient who at this time has difficulty affording appropriate treatments. Hopefully his Medicaid application will be approved soon. I feel the meantime that we can get by for a short while. He will be seen Dr. Garcia as an outpatient and this will be extremely helpful for the patient. Plan of Treatment: The mainstay of treatment will be a nebulizer therapy until he sees Dr. Malone. I will try and figure out an affordable but effective inhaler regimen. The patient is able to tolerate 1 L at rest quite easily. He will benefit from BiPAP in the long-term. Goals: Obtain the insurance coverage he is seeking and then the multiple treatment modalities will be available to the patient. He also needs to establish with an be consistent with care providers. Time Spent: Greater than 30 Minutes Stroke Is this a Stroke Patient?: No Acute Heart Failure - Is this a Heart Failure Patient?: No
[2019-09-21 12:04] VITALS: BP 120/65
== END 2019-09-21 15:44 | disposition home or self-care (01) | DRG 189 ==
LOC: ER 22:41 → EH 09-16 01:07 → 3W 09-16 03:15
PROVIDERS: ADMIT Family Medicine; ATTEND Hospitalist
PROC: 5A09357 Assistance with Respiratory Ventilation, Less than 24 Consecutive Hours, Continuous Positive Airway Pressure (ICD-10-PCS; principal; 2019-09-16)
DX: J96.01 Acute respiratory failure with hypoxia (principal); J44.1 Chronic obstructive pulmonary disease with (acute) exacerbation; E24.2 Drug-induced Cushing's syndrome; F25.9 Schizoaffective disorder, unspecified; E11.51 Type 2 diabetes mellitus with diabetic peripheral angiopathy without gangrene; D72.829 Elevated white blood cell count, unspecified; E11.65 Type 2 diabetes mellitus with hyperglycemia; F41.9 Anxiety disorder, unspecified; G89.29 Other chronic pain; T38.0X5A Adverse effect of glucocorticoids and synthetic analogues, initial encounter; I10 Essential (primary) hypertension; M19.042 Primary osteoarthritis, left hand; M19.041 Primary osteoarthritis, right hand; F31.9 Bipolar disorder, unspecified; E66.9 Obesity, unspecified; F17.219 Nicotine dependence, cigarettes, with unspecified nicotine-induced disorders; Z71.6 Tobacco abuse counseling; Z79.51 Long term (current) use of inhaled steroids; Z79.4 Long term (current) use of insulin; Z79.52 Long term (current) use of systemic steroids; Z79.899 Other long term (current) drug therapy; Z83.3 Family history of diabetes mellitus; Z82.49 Family history of ischemic heart disease and other diseases of the circulatory system
CPT/HCPCS: 36415; 71045; 74230; 80048; 80053; 82962; 83735; 84484; 85025; 85027; 94640; 94660; 94761; 94762; 99285; J1644; J1815; J2920; J3490; J7030; J7060; J7512

== ENCOUNTER 2019-10-04 10:18 | Emergency (ER) | payer SELFPAY ==
[2019-10-04] MEDS ORDERED: IPRATROPIUM/ALBUTEROL 0.5-2.5 MG/3 ML AMPUL NEB ONE (11:10)
[2019-10-04 11:19] LABS: ABSOLUTE BASOPHILS # (AUTO) 0.1 10^3/uL (0.0-0.2); ABSOLUTE EOSINOPHILS # (AUTO) 0.2 10^3/uL (0.0-0.6); ABSOLUTE LYMPHOCYTES (AUTO) 1.1 10^3/uL (0.5-4.7); ABSOLUTE MONOCYTES (AUTO) 0.7 10^3/uL (0.1-1.4); ABSOLUTE NEUT (AUTO) 8.4 10^3/uL (1.7-8.2); BASOPHILS % (AUTO) 0.8 % (0-2); EOSINOPHILS % (AUTO) 2.3 % (0-6); HEMATOCRIT 33.5 % (37.9-51.0); HEMOGLOBIN 11.6 g/dL (13.5-17.0); LYMPHOCYTES % (AUTO) 10.3 % (13-45); MEAN CORPUSCULAR HEMOGLOBIN 30.8 pg (27.0-33.4); MEAN CORPUSCULAR HGB CONC 34.5 g/dL (32.0-36.0); MEAN CORPUSCULAR VOLUME 89 fl (80-97); MONOCYTES % (AUTO) 6.8 % (3-13); PLATELET COUNT 313 10^3/uL (150-450); RED BLOOD COUNT 3.75 10^6/uL (4.35-5.55); RED CELL DISTRIBUTION WIDTH 13.5 % (11.5-14.0); SEGMENTED NEUTROPHILS % (AUTO) 79.8 % (42-78); TOTAL CELLS COUNTED % (AUTO) 100 %; WHITE BLOOD COUNT 10.6 10^3/uL (4.0-10.5)
[2019-10-04 11:35] LABS: ALBUMIN 3.8 g/dL (3.5-5.0); ALKALINE PHOSPHATASE 89 U/L (38-126); ANION GAP 7 (5-19); ASPARTATE AMINO TRANSFERASE 28 U/L (17-59); BILIRUBIN,TOTAL 0.3 mg/dL (0.2-1.3); BLOOD UREA NITROGEN 22 mg/dL (7-20); CARBON DIOXIDE 30 mmol/L (22-30); CHLORIDE 101 mmol/L (98-107); GLUCOSE 108 mg/dL (75-110); POTASSIUM 4.7 mmol/L (3.6-5.0); TOTAL PROTEIN 6.8 g/dL (6.3-8.2)
--- NOTE | 2019-10-04 11:36 | RADIOLOGY REPORT (SQ) ---
EXAM DESCRIPTION: CHEST SINGLE VIEW IMAGES COMPLETED DATE/TIME: 10/04/2019 11:20 am REASON FOR STUDY: SOB COMPARISON: 09/15/2019 EXAM PARAMETERS: NUMBER OF VIEWS: One view TECHNIQUE: Single frontal radiographic view of the chest acquired. RADIATION DOSE: NA LIMITATIONS: None. FINDINGS: LUNGS AND PLEURA: No opacities, masses or pneumothorax. No pleural effusion. MEDIASTINUM AND HILAR STRUCTURES: No masses. Contour normal. HEART AND VASCULAR STRUCTURES: Heart normal in size. Normal vasculature. BONES: No acute findings. HARDWARE: None in the chest. OTHER: No other significant finding. IMPRESSION: No evidence of acute cardiopulmonary abnormality. TECHNICAL DOCUMENTATION: JOB ID: [id number] 2010 [email or web address]- All Rights Reserved Reading location - IP/workstation name: [email or web address]
[2019-10-04] MEDS ORDERED: METHYLPREDNISOLONE INJ 125 MG/2 ML SDV IV ONE (11:56)
[2019-10-04] MEDS ORDERED: KETOROLAC TROMETHAMINE INJ/PF 30 MG/1 ML SDV IV ONE (11:57)
[2019-10-04 12:53] LABS: ARTERIAL BLOOD BASE EXCESS 1.7 mmol/L; ARTERIAL BLOOD H2CO3 1.29 mmol/L (1.05-1.35); ARTERIAL BLOOD HCO3 26.6 mmol/L (20-24); ARTERIAL BLOOD O2 SATURATION 95.5 % (94-98); ARTERIAL BLOOD PH 7.41 (7.35-7.45); ARTERIAL BLOOD PO2 77.5 mmHg (80-100)
[2019-10-04 13:10] LABS: ARTERIAL BLOOD FIO2 2L
[2019-10-04 13:59] LABS: NT PRO BNP 24 pg/mL (<125)
[2019-10-04 14:00] LABS: TROPONIN I < 0.012 ng/mL
[2019-10-04 14:48] LABS: APPEARANCE,URINE CLEAR; BILIRUBIN,URINE NEGATIVE (NEGATIVE); COLOR,URINE YELLOW; GLUCOSE, URINE NEGATIVE (NEGATIVE); KETONES,URINE NEGATIVE (NEGATIVE); LEUKOCYTE ESTERASE,URINE NEGATIVE (NEGATIVE); NITRITE,URINE NEGATIVE (NEGATIVE); PROTEIN,URINE NEGATIVE (NEGATIVE); URINE SPECIFIC GRAVITY 1.009; UROBILINOGEN,URINE NEGATIVE mg/dL (<2.0)
--- NOTE | 2019-10-04 17:16 | ER Document Report ---
ED General - General Chief Complaint: Shortness Of Breath Stated Complaint: DIFFICULTY BREATHING Time Seen by Provider: 10/04/19 11:09 TRAVEL OUTSIDE OF THE [place] IN LAST 30 DAYS: No - HPI Notes: Chief complaint: Breathing problems History of present illness: 53-year-old male with longstanding history of COPD who quit smoking several months ago presents with increasing breathing problems over the last week. This man's had multiple prior hospitalizations for COPD exacerbation and respiratory failure. He is never been intubated and says that he would never want to be intubated. He uses nebulizer treatments at home. He is currently dependent on 10 mg of prednisone daily. Each time to taper his prednisone down he tends to flare and has had multiple admissions as recently as 1 month ago. He denies fever. Denies sputum production. He denies chest pain. He denies any known current COVID exposure or travel outside the area. - Related Data Allergies/Adverse Reactions: cortisone Adverse Reaction (Verified 10/04/19 11:15) Past Medical History - General Information source: Patient, [facility] Records - Social History Smoking Status: Former Smoker Chew tobacco use (# tins/day): No Frequency of alcohol use: None Drug Abuse: None Family History: CVA. denies: CAD, DM, Hypertension, Malignancy - Past Medical History Cardiac Medical History: Reports: Hx Hypertension, Hx Peripheral Vascular Disease Denies: Hx Atrial Fibrillation, Hx Congestive Heart Failure, Hx Coronary Artery Disease, Hx Heart Attack, Hx Hypercholesterolemia Pulmonary Medical History: Reports: Hx Asthma, Hx COPD - Has been on chronic prednisone 40mg daily X 2 months, Hx Respiratory Failure Denies: Hx Bronchitis, Hx Pneumonia Neurological Medical History: Denies: Hx Cerebrovascular Accident, Hx Seizures Endocrine Medical History: Reports: Hx Diabetes Mellitus Type 2. Denies: Hx Diabetes Mellitus Type 1, Hx Hyperthyroidism, Hx Hypothyroidism GI Medical History: Denies: Hx Cirrhosis, Hx Crohn's Disease, Hx Gastroesophageal Reflux Disease, Hx Hepatitis, Hx Ulcerative Colitis Musculoskeletal Medical History: Reports Hx Arthritis - HANDS, Denies Hx Gout, Reports Hx Musculoskeletal Trauma Skin Medical History: Denies Hx Eczema, Denies Hx Psoriasis Psychiatric Medical History: Reports: Hx Bipolar Disorder, Hx Depression, Hx Schizoaffective Disorder Traumatic Medical History: Reports: Hx Fractures Infectious Medical History: Denies: Hx Hepatitis Past Surgical History: Reports: Hx Orthopedic Surgery - left ankle - Immunizations Immunizations up to date: Yes Hx Diphtheria, Pertussis, Tetanus Vaccination: Yes Review of Systems - Review of Systems Notes: Constitutional: Negative for fever. HENT: Negative for sore throat. Eyes: Negative for visual changes. Cardiovascular: Negative for chest pain. Respiratory: As per HPI. Gastrointestinal: Negative for abdominal pain, vomiting or diarrhea. Genitourinary: Negative for dysuria. Musculoskeletal: Negative for back pain. Skin: Negative for rash. Neurological: Negative for headaches, weakness or numbness. 10 point ROS negative except as marked above and in HPI. Physical Exam - Vital signs Vitals: Pulse Ox 97 10/04/19 10:18 - Notes Notes: GENERAL: Middle-age male appearing in no acute distress. SKIN: Eric complexion. Good turgor no rashes. HEAD: Normocephalic atraumatic. EYES: PERRLA. EOMI. Conjunctivae and sclerae clear. EARS: CANALS AND TMS CLEAR. NOSE: CLEAR. MOUTH: Moist mucosa. Good dentition. No stridor or edema. No drooling. NECK: Supple. No masses or thyromegaly. No adenopathy. Carotids 2+ without bruits. No JVD. BACK: Symmetrical without tenderness. CHEST: Respirations unlabored. Breath sounds symmetrical with scattered bila teral faint end expiratory wheezes. HEART: Regular rhythm. No murmur gallop or rub. ABDOMEN: Soft nontender without masses, organomegaly or rebound. Bowel sounds normally active. No bruits. GENITALIA: Deferred. EXTREMITIES: No edema. No calf tenderness. Cap refill less than 1.5 seconds. Dorsalis pedis and posterior tibial pulses 3+ and symmetrical. NEUROLOGICAL: GCS 15. Alert and oriented x3. Normal gait. Fluent speech. Cranial nerves II through XII intact. Sensorimotor and cerebellar normal. Normal tone. PSYCHIATRIC: Appropriate affect. Course - Re-evaluation Re-evalutation: 10/04/19 17:15 BMP normal. Chest x-ray normal. Arterial blood gas shows satisfactory oxygenation and no significant CO2 retention. Troponin normal. Comprehensive metabolic profile and CBC normal. D-dimer normal. EKG shows no acute changes. I think this man is having a mild COPD exacerbation. I gave him Solu-Medrol 125 mg and a couple of neb treatments here. His wheezes cleared. He remains very stable. I think he can be managed at home with another burst of steroids and I will also place him on some doxycycline orally. Findings, clinical impression and plan of treatment have been discussed with patient/family. Understanding of current findings and recommendations has been acknowledged by them and there is agreement regarding disposition and follow-up. - Vital Signs Vital signs: Temp Pulse Resp BP Pulse Ox 98.1 F 15 124/72 98 10/04/19 15:01 10/04/19 15:01 10/04/19 15:01 10/04/19 15:01 - Laboratory Result Diagrams: 10/04/19 10:49 10/04/19 10:49 Laboratory results interpreted by me: 10/04/19 10/04/19 10/04/19 10:49 10:49 12:43 WBC 10.6 H RBC 3.75 L Hgb 11.6 L Hct 33.5 L Lymph % (Auto) 10.3 L Absolute Neuts (auto) 8.4 H Seg Neutrophils % 79.8 H ABG pO2 77.5 L ABG HCO3 26.6 H ABG Total CO2 28.0 H BUN 22 H ALT 51 H - Diagnostic Test Radiology reviewed: Reports reviewed - Normal chest x-ray per radiologist. - EKG Interpretation by Me Additional EKG results interpreted by me: 10/04/19 17:17 EKG from 1057 hrs. reviewed contemporaneously by me demonstrating a normal sinus rhythm with a rate of 97 and a QRS axis of +40 degrees. Intervals are normal. There are no acute ST/T wave changes. Comparison with prior tracing from 08/21/2019 shows no significant interval change. Indication for current study: Dyspnea. Discharge - Discharge Clinical Impression: COPD with exacerbation Condition: Stable Disposition: HOME, SELF-CARE Additional Instructions: Continue your home breathing treatments. Increase your prednisone to 60 mg a day for the next 5 days. You will also receive an antibiotic prescription. Return here as needed for new or worsening symptoms. Follow-up with your primary care doctor. Prescriptions: Prednisone [Deltasone 20 mg Tablet] 2 tab PO DAILY 5 Days tablet Doxycycline Monohydrate 100 mg PO BID #20 capsule Referrals: [facility] [Provider Group] - Follow up as needed
[2019-10-04 17:56] VITALS: BP 150/62
--- NOTE | 2019-10-04 18:28 | EKG REPORT ---
SEVERITY:- NORMAL ECG - SINUS RHYTHM : Confirmed by: Abiodun Ward MD 04-Oct-2019 18:28:13
--- NOTE | 2019-10-04 18:29 | EKG REPORT ---
SEVERITY:- NORMAL ECG - SINUS RHYTHM : Confirmed by: Abiodun Ward MD 04-Oct-2019 18:28:23
== END 2019-10-04 17:53 | disposition home or self-care (01) ==
LOC: ER 10:18
DX: J44.1 Chronic obstructive pulmonary disease with (acute) exacerbation (principal); R06.02 Shortness of breath; I10 Essential (primary) hypertension; E11.51 Type 2 diabetes mellitus with diabetic peripheral angiopathy without gangrene; Z87.891 Personal history of nicotine dependence; Z79.52 Long term (current) use of systemic steroids
CPT/HCPCS: 93005; 94640; 99285; 96374; 96375; 36415; 82803; 85025; 80053; 81001; 84484; 85379; 83880; 71045; 93010; J2930; J1885

== ENCOUNTER 2019-10-08 03:12 | Emergency (ER) | payer SELFPAY ==
[2019-10-08 03:40] LABS: ABSOLUTE EOSINOPHILS # (AUTO) 0.4 10^3/uL (0.0-0.6); ABSOLUTE LYMPHOCYTES (AUTO) 2.8 10^3/uL (0.5-4.7); ABSOLUTE NEUT (AUTO) 5.4 10^3/uL (1.7-8.2); BASOPHILS % (AUTO) 0.4 % (0-2); EOSINOPHILS % (AUTO) 4.2 % (0-6); HEMATOCRIT 32.8 % (37.9-51.0); HEMOGLOBIN 11.4 g/dL (13.5-17.0); LYMPHOCYTES % (AUTO) 29.1 % (13-45); MEAN CORPUSCULAR HGB CONC 34.9 g/dL (32.0-36.0); MEAN CORPUSCULAR VOLUME 89 fl (80-97); MONOCYTES % (AUTO) 10.1 % (3-13); PLATELET COUNT 320 10^3/uL (150-450); RED BLOOD COUNT 3.68 10^6/uL (4.35-5.55); RED CELL DISTRIBUTION WIDTH 13.5 % (11.5-14.0); SEGMENTED NEUTROPHILS % (AUTO) 56.2 % (42-78); TOTAL CELLS COUNTED % (AUTO) 100 %; WHITE BLOOD COUNT 9.7 10^3/uL (4.0-10.5)
[2019-10-08 03:58] LABS: ALBUMIN 3.8 g/dL (3.5-5.0); ALKALINE PHOSPHATASE 86 U/L (38-126); ASPARTATE AMINO TRANSFERASE 25 U/L (17-59); BILIRUBIN,TOTAL 0.3 mg/dL (0.2-1.3); BLOOD UREA NITROGEN 22 mg/dL (7-20); CARBON DIOXIDE 31 mmol/L (22-30); GLUCOSE 99 mg/dL (75-110); POTASSIUM 4.3 mmol/L (3.6-5.0); TOTAL PROTEIN 6.7 g/dL (6.3-8.2)
[2019-10-08 04:03] LABS: ANION GAP 6 (5-19); CHLORIDE 101 mmol/L (98-107)
[2019-10-08] MEDS ORDERED: IPRATROPIUM/ALBUTEROL 0.5-2.5 MG/3 ML AMPUL NEB ONE (04:05)
--- NOTE | 2019-10-08 04:05 | RADIOLOGY REPORT (SQ) ---
PA and lateral chest radiograph: 10/08/2019 3:03 AM CDT History: 53-year old patient with dyspnea, COPD. Comparison: Chest radiograph performed 09/15/2019 Findings: The cardiomediastinal silhouette is normal in size. No pneumothorax is seen. No discrete pleural effusion is apparent. No acute airspace opacities are seen. Impression: No acute airspace opacities are seen.
--- NOTE | 2019-10-08 04:37 | ER Document Report ---
Entered by ARIADNE SANTILLAN SCRIBE 10/08/19 0402 Acting as scribe for:SAROJ MENDEZ IV, MD ED Respiratory Problem - General Chief Complaint: Shortness Of Breath Stated Complaint: SHORTNESS OF BREATH Time Seen by Provider: 10/08/19 03:48 Mode of Arrival: Medic Information source: Patient Notes: This 53 year old male patient with a history of COPD on 2L O2 via NC at home and multiple admissions for acute respiratory failure (last admission on 09/16/2019) brought in by EMS from home presents to the ED today with complaints of exertional shortness of breath for the last x2-3 days. Patient states that he gets short of breath while walking short distances even with the O2. He reports that yesterday he coughed so hard that he passed out and woke up with epistaxis. He mentions that he is awaiting a sleep study to receive a CPAP machine. Patient was seen here x4 days ago with the same complaint and was discharged after receiving steroids and breathing treatments. He was sent home with a prescription for Prednisone and Doxycyline. He states that he quit smoking x5 months ago. TRAVEL OUTSIDE OF THE [place] IN LAST 30 DAYS: No - Related Data Allergies/Adverse Reactions: cortisone Adverse Reaction (Verified 10/04/19 11:15) Past Medical History - General Information source: Patient, [facility] Records - Social History Smoking Status: Former Smoker - quit x5 months ago Cigarette use (# per day): No Chew tobacco use (# tins/day): No Smoking Education Provided: No Frequency of alcohol use: None Drug Abuse: None Lives with: Spouse/Significant other Family History: Reviewed & Not Pertinent, CVA Patient has suicidal ideation: No Patient has homicidal ideation: No - Past Medical History Cardiac Medical History: Reports: Hx Hypertension, Hx Peripheral Vascular Disease Pulmonary Medical History: Reports: Hx Asthma, Hx COPD - Has been on chronic prednisone 40mg daily X 2 months, Hx Respiratory Failure Endocrine Medical History: Reports: Hx Diabetes Mellitus Type 1, Hx Diabetes Mellitus Type 2 Musculoskeletal Medical History: Reports Hx Arthritis - HANDS, Reports Hx Musculoskeletal Trauma Psychiatric Medical History: Reports: Hx Bipolar Disorder, Hx Depression, Hx Schizoaffective Disorder Traumatic Medical History: Reports: Hx Fractures Past Surgical History: Reports: Hx Orthopedic Surgery - left ankle - Immunizations Immunizations up to date: Yes Hx Diphtheria, Pertussis, Tetanus Vaccination: Yes Review of Systems - Review of Systems Constitutional: No symptoms reported EENT: No symptoms reported Cardiovascular: See HPI, Syncope Respiratory: See HPI, Cough, Short of breath Gastrointestinal: No symptoms reported Genitourinary: No symptoms reported Male Genitourinary: No symptoms reported Musculoskeletal: No symptoms reported Skin: No symptoms reported Hematologic/Lymphatic: No symptoms reported Neurological/Psychological: No symptoms reported -: Yes All other systems reviewed and negative Physical Exam - Vital signs Vitals: Temp 98.0 F 10/08/19 03:12 - General General appearance: Alert In distress: None - HEENT Head: Normocephalic, Atraumatic Eyes: Normal Pupils: PERRL - Respiratory Respiratory status: No respiratory distress Chest status: Nontender Breath sounds: Decreased air movement - Diminished breath sounds in all lung bustamante Chest palpation: Normal - Cardiovascular Rhythm: Regular Heart sounds: Normal auscultation Murmur: No Friction rub: No Gallop: None auscultated - Abdominal Inspection: Normal Distension: No distension Bowel sounds: Normal Tenderness: Nontender - Abdomen soft Organomegaly: No organomegaly - Back Back: Normal, Nontender - Extremities General upper extremity: Normal inspection General lower extremity: Normal inspection - Neurological Neuro grossly intact: Yes Orientation: AAOx4 Jerome Coma Scale Eye Opening: Spontaneous Jerome Coma Scale Verbal: Oriented Jerome Coma Scale Motor: Obeys Commands Jerome Coma Scale Total: 15 - Psychological Associated symptoms: Normal affect, Normal mood - Skin Skin Temperature: Warm Skin Moisture: Dry Skin Color: Normal Course - Re-evaluation Re-evalutation: 10/08/19 06:13 Patient was sleeping when this MD went back to reevaluate him. Patient appeared to be normal right. Patient appears to be in no acute distress at this time. Results of ED MSE discussed with patient. Patient states he is currently on 40 mg of prednisone daily. This MD informed him that I would like for him to stop the 40 mg dose of prednisone and start on 60 mg of prednisone daily for 4 more days. All questions were answered prior to discharge. Emergency signs and symptoms, reasons to return to the emergency department discussed with patient. - Vital Signs Vital signs: Temp Pulse Resp BP Pulse Ox 98.0 F 13 132/83 H 95 10/08/19 03:12 10/08/19 06:02 10/08/19 06:02 10/08/19 06:02 - Laboratory Result Diagrams: 10/08/19 03:22 10/08/19 03:22 Laboratory results interpreted by me: 10/08/19 10/08/19 10/08/19 03:22 03:22 05:00 RBC 3.68 L Hgb 11.4 L Hct 32.8 L Carbonic Acid 1.46 H ABG pCO2 48.4 H ABG pO2 71.0 L ABG HCO3 29.0 H ABG Total CO2 30.5 H Carbon Dioxide 31 H BUN 22 H - Diagnostic Test Radiology reviewed: Reports reviewed Discharge - Discharge Clinical Impression: COPD with exacerbation Condition: Stable Disposition: HOME, SELF-CARE Additional Instructions: Return to the Emergency Department without delay if any worse. Start taking 60 mg of prednisone daily starting today for the next 4 days. Stop the 40 mg daily dose that you were put on before. HOME CARE INSTRUCTIONS & INFORMATION: Thank you for choosing us for your medical needs. We hope you're satisfied with the care you received. After you leave, you must properly care for your problem and, at the same time, observe its progress. Any condition can change. Some illnesses can change rapidly over hours or days. If your condition worsens, return to the Emergency Department or see your physician promptly. ABOUT YOUR X-RAYS AND EKG'S: If you had an EKG or X-rays taken, they have been read by the Emergency Physician. The X-rays and EKG's will also be read by a Radiologist or [employer] Manager within 24 hours. If discrepancies are noted, you will be notified by telephone. Please be certain the ED has a correct telephone number & address where you can be reached. Also, realize that some fractures or abnormalities do not show up on initial X-rays. If your symptoms continue, see your physician. ABOUT YOUR LABORATORY TEST: If you had laboratory tests, the results have been reviewed by the Emergency Physician. Some test results (for example cultures) may not be available for several days. You will be contacted if any test result shows you need additional treatment. Please be certain the ED has a correct telephone number and address where you can be reached. ABOUT YOUR MEDICATIONS: You will receive instructions on how to take your medicine on the prescription label you receive. Additional information may be p rovided by the Pharmacy. If you have questions afterwards, call the ED for clarification or further instructions. Some prescribed medications may cause drowsiness. Do not perform tasks such as driving a car or operating machinery without consulting your Pharmacist. If you feel you need a refill of pain medication, your condition will need re-evaluation. Please do not call for a refill of any medication. ABOUT YOUR SIGNATURE: Signature of this document acknowledges to followin. Understanding that you received emergency treatment and that you may be released before al medical problems are known or treated. Please be certain the ED has a correct phone number & address where you can be reached. 2. Acknowledgement that you will arrange for follow-up care as recommended. 3. Authorization for the Emergency Physician to provide information to your follow-up Physician in order to maximize your care. AT ANY TIME, IF YOUR SYMPTOMS CHANGE SIGNIFICANTLY OR WORSEN OR YOU DEVELOP NEW SYMPTOMS, RETURN TO THE EMERGENCY DEPARTMENT IMMEDIATELY FOR RE-EVALUATION. OUR GOAL IS TO PROVIDE EXCELLENT MEDICAL CARE! WE HOPE THAT WE HAVE MET YOUR EXPECTATIONS DURING YOUR EMERGENCY DEPARTMENT VISIT AND THAT YOU FEEL YOU HAVE RECEIVED EXCELLENT CARE! Chronic Obstructive Lung Disease You have chronic obstructive lung disease (COPD). The symptoms come from emphysema (damage to small airways, with trapping of air in large sacks in the lung) and chronic bronchitis (repeated infection and damage to larger airways). The cause is almost always cigarette smoking, although dust exposure, asthma, and infections contribute. You should avoid fumes, dust, and smoke (especially tobacco smoke). Your condition will flare from time to time. There is no cure, but the symptoms can be treated. Bronchodilators (asthma medicine) are often helpful. Antibiotics help when infection is present. When shortness of breath is severe, we may prescribe cortisone medication. If medicine doesn't help enough, we can arrange for you to have an oxygen tank at home. Notify your doctor at once if sputum becomes thick, foul, or bloody, if you develop a fever or chest pain, or if your shortness of breath worsens. Prescriptions: Prednisone [Deltasone 20 mg Tablet] 60 mg PO DAILY 4 Days #12 tablet Referrals: RAYMOND GUSMAN MD [HONORARY] - Follow up as needed I personally performed the services described in the documentation, reviewed and edited the documentation which was dictated to the scribe in my presence, and it accurately records my words and actions.
[2019-10-08 05:19] LABS: ARTERIAL BLOOD BASE EXCESS 3.4 mmol/L; ARTERIAL BLOOD H2CO3 1.46 mmol/L (1.05-1.35); ARTERIAL BLOOD O2 SATURATION 94.1 % (94-98); ARTERIAL BLOOD PCO2 48.4 mmHg (35-45); ARTERIAL BLOOD TOTAL CO2 30.5 mmol/L (23-27)
[2019-10-08 05:21] LABS: ARTERIAL BLOOD FIO2 2 LPN
[2019-10-08 07:06] VITALS: BP 135/78
== END 2019-10-08 07:03 | disposition home or self-care (01) ==
LOC: ER 03:12
DX: J44.1 Chronic obstructive pulmonary disease with (acute) exacerbation (principal); R06.02 Shortness of breath; R05 Cough; R55 Syncope and collapse; R04.0 Epistaxis; Z79.899 Other long term (current) drug therapy; Z87.891 Personal history of nicotine dependence; Z88.8 Allergy status to other drugs, medicaments and biological substances; I10 Essential (primary) hypertension; E11.9 Type 2 diabetes mellitus without complications
CPT/HCPCS: 36415; 71046; 80053; 82803; 84484; 85025; 94640; 99285

== ENCOUNTER → 2019-11-28 | Outpatient (CLI) | payer MEDICAID ==
--- NOTE | 2019-11-28 09:13 | ST Modified Barium Swallow ---
Recommendation - Recommendations Recommendations: Similar results as prior study in August,. Recommend mechanical soft solids with chopped meat due to dentition/mastication. No dysphagia therapy indicated. Medical Diagnoses - Medical Diagnoses Medical Diagnosis Description & ICD-10 Code(s): R13.12 dysphagia Other Medical Diagnoses/Co-Morbidities: per patient: COPD on 2L O2. ST Modified Barium Swallow - General Date: 11/28/19 Referring Physician: Dr. Almanza Risks/Precautions: None Date of Onset: 10/30/18 - approximate onset date Reason for Referral: coughing with PO - History History obtained from: Patient -: Medical - Patient referred by Dr. Almanza for swallow study due to dysphagia. Patient had an inpatient MBSS completed on 09/19/19, patient at that time hospitalized due to respiratory failure. At that study, the patient demonstrated consistent penetration of thin liquids without aspiration. At that time, ENT consult was recommended due to possible soft tissue changes difficult to visualize on fluoroscopy, patient has since seen ENT. At this time, the patient states that he notices increased coughing with meals and PO, he states that he starts coughing on 2/3 meals each day. Specifically mentions rice as being problematic. Patient also reported 2 instances where food was not chewed well enough and stuck in his throat (green beans, slater). Patient currently has top dentures but not bottom, states that he is in the process of getting new dentures. Medications: patient unable to give full medication list, does report blood pressure medication and steroids, home oxygen use. Allergies: patient reports none, EMR indicates cortisone allergy - Functional Status Prior Functional Status: INDEPENDENT: feeding Current Functional Limitations: feeding - coughing with PO - Subjective Patient/caregiver goal(s): safe swallow Cognitive-Linguistic Function: Functional Speech Intelligibility: WNL Current Nutritional Means: PO Current PO diet: Regular Current symptoms: Coughing Pain: Patient reports, 4/5 - back pain, chronic. No overt signs of pain. - Objective Assessment: Upright, Left Lateral - Food Trials Used Food trials used: Thin liquids, Pureed, Regular The patient: Was Able to Self Feed - Oral-Motor Skills Dentition: Dentures-Upper Velo-pharyngeal function: Unremarkable Laryngeal Function: clear voicing - Assessment Oral prep: Normal Labial closure: Adequate Leakage: None Mastication: Adequate - mildly reduced due to dentition Lingual Movement: Normal Oral stage: Normal for this Procedure - Pharyngeal Stage Initiation of Pharyngeal Stage Reflex: Normal Decreased laryngeal elevation: Yes - mild Reduced Velopharyngeal Closure: no Reduced pressure generation: No reduced tongue-based retraction: No Pre-swallow pooling in valleculae: Mild Pre-Swallow pooling in pyriforms: Mild Reduced epiglottic excursion: No Reduced pharyngeal peristalsis/contraction: No Post-swallow residulas vallecular: None Post-Swallow residuals in pyriforms: None Reduced Cricopharyngeal opening: No - Fall Risk Assessment Medications/Conditions that increase fall risks include: Antidepressants, sedatives, anti-arrhythmic, diuretic, benzodiazipenes, neuroleptics. BP reg ulation problems, cardiac problems, balance or gait deficits, neurological problems. Is patient considered at risk for falls: no Fall Risk Actions Taken: No action needed - Behavioral Observations During evaluation process patient: able to answer questions - Treatment / Educational Needs: Treatment/Education Needs: Treatment consisted of patient education on the role of the Speech Pathologist. Patient's plan of care and golas were communicated as well as scheduling and attendance policies. Recommendations for initial home program were shared. Patient demonstrated understanding and verbalized agreement. - Impression/Summary Laryngeal Penetration: Yes - consistent penetration of thin liquids without aspiration, no cough reaction Tracheal Aspiration: no Patient presents with: Oral-Pharyngeal dysph. - mild Risk of Aspiration: Mild Evaluation and Findings: While patient demonstrated consistent penetration of thin liquids, even with swallow challenge (sequential straw sips) no aspiration occured. No residue was present in the pharynx following the swallow, even when at times the patient reported globus sensation. Results appear very similar to last study completed 09/19/19. Patient did demonstrate some reduced mastication of solids, resulting in more effortful swallow, however, swallow was still efficient and no residue remained in the pharynx. - Recommendations Solid diet recommendations: Mechanical Soft, Chopped Meat Liquid Diet Modification: Thin Strict aspiration precautions: Yes Dysphagia therapy with DE ICER ELEMENT WINDER: no Recommended techniques: Fully Upright During Meal, Small Bites and Sips, Alternate Bites/Sips Information, Precautions and Recommendations: Patient (Written), Patient (Verbal) Other recommendations: Discussed with patient trying softer foods until new dentures are received due to reported difficulty chewing currently. - Time Total Time: 30 - Plan of Care Strategies to optimize patient understanding include:: ongoing assessment of educational needs, implementation of educational strategies, and re-education. - - -: Thank you for the opportunity to work with this patient and his/her family. Should you have any questions about this patient's plan or progress, I can be reached at [phone].
--- NOTE | 2019-11-28 11:52 | RADIOLOGY REPORT (SQ) ---
EXAM DESCRIPTION: COOKIE SWALLOW IMAGES COMPLETED DATE/TIME: 11/28/2019 9:11 am REASON FOR STUDY: R13.12 DYSPHAGIA, OROPHARYNGEAL PHASE R13.12 DYSPHAGIA, OROPHARYNGEAL PHASE Choking and coughing with meals COMPARISON: Modified barium swallow 09/19/2019. TECHNIQUE: Videofluoroscopic swallowing examination was performed in conjunction with speech patholo gy. Videofluoroscopic imaging was obtained and reviewed and these are the findings: RADIATION DOSE: 2.1 minutes of fluoroscopy was used. 1 images saved to PACS. LIMITATIONS: None FINDINGS: The patient was brought into the fluoro room and placed upright on a modified barium swall ow chair. The patient was then given multiple consistencies mixed with barium to swallow under live fluoroscopic video guidance. According to the Speech Pathologist there was deep laryngeal penetratio n with thin liquids. No aspiration seen. IMPRESSION: DEEP LARYNGEAL PENETRATION PENETRATION WITHOUT ASPIRATION. PLEASE SEE SPEECH PATHOLOGIST REPORT FOR OTHER FINDINGS AND RECOMMENDATIONS. COMMENT: Quality ID [id number]: Final reports for procedures using fluoroscopy that document radiation exp osure indices, or exposure time and number of fluorographic images (if radiation exposure indices are not available) TECHNICAL DOCUMENTATION: JOB ID: [id number] 2010 [employer]- All Rights Reserved Reading location - IP/workstation name: [email or web address] [id number]
== END ==
LOC: RAD 08:00
PROVIDERS: ATTEND Otolaryngology
DX: R13.12 Dysphagia, oropharyngeal phase (principal)
CPT/HCPCS: 74230

== ENCOUNTER 2020-01-07 19:27 | Emergency (ER) | payer MEDICAID ==
[2020-01-07 19:58] LABS: ABSOLUTE BASOPHILS # (AUTO) 0.1 10^3/uL (0.0-0.2); ABSOLUTE EOSINOPHILS # (AUTO) 0.3 10^3/uL (0.0-0.6); ABSOLUTE MONOCYTES (AUTO) 0.9 10^3/uL (0.1-1.4); ABSOLUTE NEUT (AUTO) 9.1 10^3/uL (1.7-8.2); BASOPHILS % (AUTO) 0.5 % (0-2); EOSINOPHILS % (AUTO) 2.7 % (0-6); LYMPHOCYTES % (AUTO) 16.1 % (13-45); MEAN CORPUSCULAR HEMOGLOBIN 30.4 pg (27.0-33.4); MEAN CORPUSCULAR HGB CONC 34.4 g/dL (32.0-36.0); MEAN CORPUSCULAR VOLUME 88 fl (80-97); MONOCYTES % (AUTO) 7.5 % (3-13); PLATELET COUNT 335 10^3/uL (150-450); RED BLOOD COUNT 3.96 10^6/uL (4.35-5.55); RED CELL DISTRIBUTION WIDTH 12.8 % (11.5-14.0); SEGMENTED NEUTROPHILS % (AUTO) 73.2 % (42-78); TOTAL CELLS COUNTED % (AUTO) 100 %; WHITE BLOOD COUNT 12.4 10^3/uL (4.0-10.5)
--- NOTE | 2020-01-07 20:04 | RADIOLOGY REPORT (SQ) ---
EXAM DESCRIPTION: CHEST SINGLE VIEW IMAGES COMPLETED DATE/TIME: 01/07/2020 7:54 pm REASON FOR STUDY: cough, shortness of breath COMPARISON: Chest x-ray 10/08/2019, 10/04/2019, 08/21/2019. EXAM PARAMETERS: NUMBER OF VIEWS: One view. TECHNIQUE: Single frontal radiographic view of the chest acquired. RADIATION DOSE: NA LIMITATIONS: None. FINDINGS: LUNGS AND PLEURA: No consolidation, pneumothorax or pleural effusion. MEDIASTINUM AND HILAR STRUCTURES: Contour normal. HEART AND VASCULAR STRUCTURES: Heart normal in size. Normal vasculature. BONES: No acute findings. HARDWARE: None in the chest. IMPRESSION: No acute radiographic finding in the chest. TECHNICAL DOCUMENTATION: JOB ID: [id number] 2010 [employer]- All Rights Reserved Reading location - IP/workstation name: [email or web address]
[2020-01-07 20:08] LABS: APPEARANCE,URINE CLEAR; BILIRUBIN,URINE NEGATIVE (NEGATIVE); COLOR,URINE STRAW; GLUCOSE, URINE >=500 mg/dL (NEGATIVE); KETONES,URINE NEGATIVE (NEGATIVE); LEUKOCYTE ESTERASE,URINE NEGATIVE (NEGATIVE); NITRITE,URINE NEGATIVE (NEGATIVE); PROTEIN,URINE NEGATIVE (NEGATIVE); UROBILINOGEN,URINE NEGATIVE mg/dL (<2.0)
[2020-01-07 20:22] LABS: ALBUMIN 4.2 g/dL (3.5-5.0); ALKALINE PHOSPHATASE 133 U/L (38-126); ANION GAP 11 (5-19); ASPARTATE AMINO TRANSFERASE 38 U/L (17-59); BILIRUBIN,DIRECT 0.2 mg/dL (0.0-0.4); BILIRUBIN,TOTAL 0.4 mg/dL (0.2-1.3); BLOOD UREA NITROGEN 20 mg/dL (7-20); CALCIUM 9.3 mg/dL (8.4-10.2); CARBON DIOXIDE 25 mmol/L (22-30); CHLORIDE 95 mmol/L (98-107); CREATINE KINASE 105 U/L (55-170); POTASSIUM 5.1 mmol/L (3.6-5.0); TOTAL PROTEIN 6.7 g/dL (6.3-8.2)
[2020-01-07 20:28] LABS: GLUCOSE 501 mg/dL (75-110)
[2020-01-07 20:34] LABS: CREATINE KINASE MB 3.34 ng/mL (<4.55); TROPONIN I 0.026 ng/mL
[2020-01-07] MEDS ORDERED: IPRATROPIUM/ALBUTEROL 0.5-2.5 MG/3 ML AMPUL NEB ONE (21:11)
[2020-01-07] MEDS ORDERED: INSULIN REG, HUMAN 100 UNIT/ML 3 ML VIAL (PYX) IV ONE (21:11)
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
[2020-01-07] MEDS ORDERED: GUAIFENESIN SYRP 200 MG/10 ML UDC PO ONE (22:53)
[2020-01-07 23:08] LABS: ANION GAP 13 (5-19); BLOOD UREA NITROGEN 21 mg/dL (7-20); CALCIUM 9.9 mg/dL (8.4-10.2); CARBON DIOXIDE 24 mmol/L (22-30); CHLORIDE 98 mmol/L (98-107); GLUCOSE 314 mg/dL (75-110); POTASSIUM 4.7 mmol/L (3.6-5.0)
[2020-01-08 00:08] VITALS: BP 122/70
--- NOTE | 2020-01-08 05:25 | EKG REPORT ---
SEVERITY:- OTHERWISE NORMAL ECG - SINUS TACHYCARDIA : Confirmed by: Vamsi Nelson MD 08-Jan-2020 05:24:29
== END 2020-01-08 00:58 | disposition home or self-care (01) ==
LOC: ER 19:27
DX: J44.1 Chronic obstructive pulmonary disease with (acute) exacerbation (principal); J96.10 Chronic respiratory failure, unspecified whether with hypoxia or hypercapnia; E10.65 Type 1 diabetes mellitus with hyperglycemia; E10.51 Type 1 diabetes mellitus with diabetic peripheral angiopathy without gangrene; I10 Essential (primary) hypertension; R00.0 Tachycardia, unspecified; Z99.81 Dependence on supplemental oxygen; Z99.89 Dependence on other enabling machines and devices; Z79.4 Long term (current) use of insulin; Z79.899 Other long term (current) drug therapy; Z79.52 Long term (current) use of systemic steroids; Z87.891 Personal history of nicotine dependence
CPT/HCPCS: 93005; 94640; 99285; 96374; 36415; 82553; 82550; 85025; 80053; 81001; 84484; 83880; 71045; 93010; J3490; J1815

== ENCOUNTER 2020-02-11 14:09 | Emergency (ER) | payer MEDICAID ==
--- NOTE | 2020-02-11 14:31 | ER Document Report ---
ED Medical Screen (RME) - General Chief Complaint: Syncope Stated Complaint: FALL/LEFT SHOULDER,RIB PAIN Time Seen by Provider: 02/11/20 14:20 Primary Care Provider: BASIM RODRIGEZ PA-C [Primary Care Provider] - Follow up as needed TRAVEL OUTSIDE OF THE [place] IN LAST 30 DAYS: No - HPI Notes: Patient is a 54-year-old male with a history of COPD, HTN, and DM I who presents status post syncopal episode that occurred just prior to arrival. Patient states he was sitting at his table when he suddenly awoke on the floor. He states he landed on his left side and endorses left shoulder and rib pain. He states he hit his head but denies any headache. He states he was dizzy before the syncopal episode and has been dizzy for some time. He states about 3 to 4 days ago he was started on a new blood pressure medication. He reports cough but denies chest pain. He is unsure if he is currently taking a blood thinner. He is currently on 2 L of O2 at home. - Related Data Allergies/Adverse Reactions: cortisone Adverse Reaction (Verified 02/11/20 14:19) Past Medical History - Social History Frequency of alcohol use: None Drug Abuse: None - Past Medical History Cardiac Medical History: Reports: Hx Hypertension, Hx Peripheral Vascular Disease Denies: Hx Atrial Fibrillation, Hx Congestive Heart Failure, Hx Coronary Artery Disease, Hx Heart Attack, Hx Hypercholesterolemia Pulmonary Medical History: Reports: Hx Asthma, Hx COPD - Has been on chronic prednisone 40mg daily X 2 months, Hx Respiratory Failure Denies: Hx Bronchitis, Hx Pneumonia Neurological Medical History: Denies: Hx Cerebrovascular Accident, Hx Seizures Endocrine Medical History: Reports: Hx Diabetes Mellitus Type 1, Hx Diabetes Mellitus Type 2. Denies: Hx Hyperthyroidism, Hx Hypothyroidism GI Medical History: Denies: Hx Cirrhosis, Hx Crohn's Disease, Hx Gastroesophageal Reflux Disease, Hx Hepatitis, Hx Ulcerative Colitis Musculoskeltal Medical History: Reports Hx Arthritis - HANDS, Denies Hx Gout, Reports Hx Musculoskeletal Trauma Skin Medical History: Denies Hx Eczema, Denies Hx Psoriasis Psychiatric Medical History: Reports: Hx Bipolar Disorder, Hx Depression, Hx Schizoaffective Disorder Traumatic Medical History: Reports: Hx Fractures Infectious Medical History: Denies: Hx Hepatitis Past Surgical History: Reports: Hx Orthopedic Surgery - left ankle - Immunizations Immunizations up to date: Yes Hx Diphtheria, Pertussis, Tetanus Vaccination: Yes Physical Exam - Vital signs Vitals: Temp Pulse Resp BP Pulse Ox 98.0 F 83 16 133/72 H 97 02/11/20 14:15 02/11/20 14:15 02/11/20 14:15 02/11/20 14:15 02/11/20 14:15 - Respiratory Respiratory status: Labored, Other - On home O2 Breath sounds: Wheezing - Expiratory - Extremities Shoulder: Tender, Limited ROM Course - Re-evaluation Re-evalutation: I have greeted and performed a rapid initial assessment of this patient. A comprehensive ED assessment and evaluation of the patient, analysis of test results and completion of medical decision making process will be conducted by an additional ED providers. - Vital Signs Vital signs: Temp Pulse Resp BP Pulse Ox 98.0 F 83 16 133/72 H 97 02/11/20 14:15 02/11/20 14:15 02/11/20 14:15 02/11/20 14:15 02/11/20 14:15 Doctor's Discharge - Discharge Referrals: BASIM RODRIGEZ PA-C [Primary Care Provider] - Follow up as needed
[2020-02-11 15:23] LABS: APPEARANCE,URINE CLEAR; BILIRUBIN,URINE NEGATIVE (NEGATIVE); COLOR,URINE STRAW; GLUCOSE, URINE >=500 mg/dL (NEGATIVE); KETONES,URINE NEGATIVE (NEGATIVE); LEUKOCYTE ESTERASE,URINE NEGATIVE (NEGATIVE); NITRITE,URINE NEGATIVE (NEGATIVE); PROTEIN,URINE NEGATIVE (NEGATIVE); URINE SPECIFIC GRAVITY 1.013; UROBILINOGEN,URINE NEGATIVE mg/dL (<2.0)
[2020-02-11 15:33] LABS: ABSOLUTE EOSINOPHILS # (AUTO) 0.3 10^3/uL (0.0-0.6); ABSOLUTE LYMPHOCYTES (AUTO) 0.9 10^3/uL (0.5-4.7); ABSOLUTE MONOCYTES (AUTO) 0.8 10^3/uL (0.1-1.4); ABSOLUTE NEUT (AUTO) 11.2 10^3/uL (1.7-8.2); BASOPHILS % (AUTO) 0.3 % (0-2); EOSINOPHILS % (AUTO) 2.4 % (0-6); HEMATOCRIT 31.3 % (37.9-51.0); HEMOGLOBIN 10.8 g/dL (13.5-17.0); LYMPHOCYTES % (AUTO) 7.1 % (13-45); MEAN CORPUSCULAR HEMOGLOBIN 29.3 pg (27.0-33.4); MEAN CORPUSCULAR HGB CONC 34.4 g/dL (32.0-36.0); MEAN CORPUSCULAR VOLUME 85 fl (80-97); MONOCYTES % (AUTO) 5.8 % (3-13); PLATELET COUNT 338 10^3/uL (150-450); RED BLOOD COUNT 3.67 10^6/uL (4.35-5.55); RED CELL DISTRIBUTION WIDTH 13.1 % (11.5-14.0); SEGMENTED NEUTROPHILS % (AUTO) 84.4 % (42-78); TOTAL CELLS COUNTED % (AUTO) 100 %; WHITE BLOOD COUNT 13.2 10^3/uL (4.0-10.5)
[2020-02-11 15:48] LABS: ALBUMIN 4.3 g/dL (3.5-5.0); ALKALINE PHOSPHATASE 105 U/L (38-126); ANION GAP 8 (5-19); ASPARTATE AMINO TRANSFERASE 25 U/L (17-59); BILIRUBIN,DIRECT 0.1 mg/dL (0.0-0.4); BILIRUBIN,TOTAL 0.3 mg/dL (0.2-1.3); BLOOD UREA NITROGEN 23 mg/dL (7-20); CALCIUM 9.5 mg/dL (8.4-10.2); CARBON DIOXIDE 31 mmol/L (22-30); CHLORIDE 88 mmol/L (98-107); GLUCOSE 306 mg/dL (75-110); POTASSIUM 4.6 mmol/L (3.6-5.0); TOTAL PROTEIN 7.1 g/dL (6.3-8.2)
--- NOTE | 2020-02-11 16:14 | RADIOLOGY REPORT (SQ) ---
EXAM DESCRIPTION: CT HEAD WITHOUT IMAGES COMPLETED DATE/TIME: 02/11/2020 4:04 pm REASON FOR STUDY: syncope with unknown head injury COMPARISON: None. TECHNIQUE: Axial images acquired through the brain without intravenous contrast. Images reviewed wi th bone, brain and subdural windows. Additional sagittal and coronal reconstructions were generated. Images stored on PACS. All CT scanners at this facility use dose modulation, iterative reconstruction, and/or weight based d osing when appropriate to reduce radiation dose to as low as reasonably achievable (ALARA). [facility]: Dose Right [facility]: CareDose [facility]: Dose Right [facility]: Teradose 4D [facility]: Smart Carbonite RADIATION DOSE: CT Rad equipment meets quality standard of care and radiation dose reduction techniq ues were employed. CTDIvol: 53.2 mGy. DLP: 1070 mGy-cm. mGy. LIMITATIONS: Motion artifact. FINDINGS: VENTRICLES: Normal size and contour. CEREBRUM: No masses. No hemorrhage. No midline shift. No evidence for acute infarction. Normal gra y/white matter differentiation. No areas of low density in the white matter. CEREBELLUM: No masses. No hemorrhage. No alteration of density. No evidence for acute infarction. EXTRAAXIAL SPACES: No fluid collections. No masses. ORBITS AND GLOBE: No intra- or extraconal masses. Normal contour of globe without masses. CALVARIUM: No fracture. PARANASAL SINUSES: Mild scattered paranasal sinus disease. SOFT TISSUES: No mass or hematoma. OTHER: No other significant finding. IMPRESSION: No acute intracranial findings. EVIDENCE OF ACUTE STROKE: NO. COMMENT: Quality ID # [id number]: Final reports with documentation of one or more dose reduction techniques (e.g., Automated exposure control, adjustment of the mA and/or kV according to patient size, use of iterative reconstruction technique) TECHNICAL DOCUMENTATION: JOB ID: [id number] 2010 [employer]- All Rights Reserved Reading location - IP/workstation name: [email or web address]
--- NOTE | 2020-02-11 16:16 | RADIOLOGY REPORT (SQ) ---
EXAM DESCRIPTION: HUMERUS LEFT; SHOULDER LEFT 2 OR MORE VIEWS IMAGES COMPLETED DATE/TIME: 02/11/2020 2:53 pm REASON FOR STUDY: syncope with left shoulder pain COMPARISON: Upright PA and lateral views of the chest, 01/27/2017. . NUMBER OF VIEWS: Five views TECHNIQUE: AP, AP internal and external and scapular Y-view of the left shoulder and AP and lateral views of the left humerus. LIMITATIONS: None. FINDINGS: MINERALIZATION: Normal. BONES: There is no acute fracture or cortical disruption. Normal contour of the humeral head. Funmi l glenohumeral joint space alignment. The acromioclavicular joint is mildly widened compared with pr evious examination, possibly representing an AC joint separation. . SOFT TISSUES: No obvious swelling or foreign body. OTHER: No other significant finding. IMPRESSION: No acute fracture or dislocation of the left shoulder or humerus. Possible mild widenin g at the acromioclavicular joint may represent AC joint separation. Clinical correlation with patien t's symptoms recommended. TECHNICAL DOCUMENTATION: JOB ID: [id number] 2010 [employer]- All Rights Reserved Reading location - IP/workstation name: [email or web address]
--- NOTE | 2020-02-11 16:16 | RADIOLOGY REPORT (SQ) ---
EXAM DESCRIPTION: HUMERUS LEFT; SHOULDER LEFT 2 OR MORE VIEWS IMAGES COMPLETED DATE/TIME: 02/11/2020 2:53 pm REASON FOR STUDY: syncope with left shoulder pain COMPARISON: Upright PA and lateral views of the chest, 01/27/2017. . NUMBER OF VIEWS: Five views TECHNIQUE: AP, AP internal and external and scapular Y-view of the left shoulder and AP and lateral views of the left humerus. LIMITATIONS: None. FINDINGS: MINERALIZATION: Normal. BONES: There is no acute fracture or cortical disruption. Normal contour of the humeral head. Funmi l glenohumeral joint space alignment. The acromioclavicular joint is mildly widened compared with pr evious examination, possibly representing an AC joint separation. . SOFT TISSUES: No obvious swelling or foreign body. OTHER: No other significant finding. IMPRESSION: No acute fracture or dislocation of the left shoulder or humerus. Possible mild widenin g at the acromioclavicular joint may represent AC joint separation. Clinical correlation with patien t's symptoms recommended. TECHNICAL DOCUMENTATION: JOB ID: [id number] 2010 [employer]- All Rights Reserved Reading location - IP/workstation name: [email or web address]
--- NOTE | 2020-02-11 16:19 | RADIOLOGY REPORT (SQ) ---
EXAM DESCRIPTION: RIBS BILATERAL W/PA CXR IMAGES COMPLETED DATE/TIME: 02/11/2020 2:53 pm REASON FOR STUDY: syncope with rib pain. Left anterior rib pain. COMPARISON: 01/07/2020 TECHNIQUE: Frontal view of the chest and additional views of the left and right ribs acquired. NUMBER OF VIEWS: 9 views LIMITATIONS: None. FINDINGS: FRONTAL CXR: No pneumothorax. No pleural effusion. No atelectasis or infiltrates. RIBS: Minimally displaced probably acute fracture of the anterior left 9th rib. OTHER: No other significant finding. IMPRESSION: Nondisplaced fracture anterior left 9th rib. No underlying pneumothorax or acute cardio pulmonary disease. COMMENT: SITE OF TRAUMA/COMPLAINT MARKED/STAMP COMPLETED: Yes TECHNICAL DOCUMENTATION: JOB ID: [id number] 2010 [employer]- All Rights Reserved Reading location - IP/workstation name: [email or web address]
[2020-02-11] MEDS ORDERED: HYDROCODONE/ACETAMINOPHEN 5-325 MG TABLET PO ONE (16:56)
[2020-02-11] MEDS ORDERED: IPRATROPIUM/ALBUTEROL 0.5-2.5 MG/3 ML AMPUL NEB ONE (17:00)
--- NOTE | 2020-02-11 17:06 | ER Document Report ---
ED Syncope and Near Syncope - General Chief Complaint: Syncope Stated Complaint: FALL/LEFT SHOULDER,RIB PAIN Time Seen by Provider: 02/11/20 14:20 Primary Care Provider: MILLER MENDOZA MD [ACTIVE STAFF] - Follow up in 3-5 days BASIM RODRIGEZ PA-C [Primary Care Provider] - Follow up tomorrow TRAVEL OUTSIDE OF THE [place] IN LAST 30 DAYS: No - HPI Notes: Patient is a 54-year-old male with a past medical history of COPD on chronic home 2 L O2, diabetes on insulin, high blood pressure who presents with a syncopal event. Patient states that he felt like his blood sugar was low today because he felt dizzy. He was eating ice cream. His was cooking dinner. He then had a syncopal event after becoming dizzy. He states that he hit his head and his left shoulder on the ground. He states he came to in several minutes. He complains of pain at his left shoulder and his left anterior rib. Patient was recently started on new blood pressure medicine, losartan hydro chlorothiazide, by his adoption specialist about 4 days ago. He took the medicine right before the event. He has been getting dizzy with the medicine. Patient has had a chronic cough for several months that is off and on. He states he had a sore throat yesterday. He was tested for Covid 2 months ago and it was negative. He denies any fevers or chills. No nausea. No pain or shortness of breath prior to the fall. - Related Data Allergies/Adverse Reactions: cortisone Adverse Reaction (Verified 02/11/20 14:19) Past Medical History - General Information source: Patient, Relative - Social History Smoking Status: Former Smoker Frequency of alcohol use: None Drug Abuse: None Family History: Reviewed & Not Pertinent, CVA - Past Medical History Cardiac Medical History: Reports: Hx Hypertension, Hx Peripheral Vascular Disease Denies: Hx Atrial Fibrillation, Hx Congestive Heart Failure, Hx Coronary Artery Disease, Hx Heart Attack, Hx Hypercholesterolemia Pulmonary Medical History: Reports: Hx Asthma, Hx COPD - Has been on chronic prednisone 40mg daily X 2 months, Hx Respiratory Failure Denies: Hx Bronchitis, Hx Pneumonia Neurological Medical History: Denies: Hx Cerebrovascular Accident, Hx Seizures Endocrine Medical History: Reports: Hx Diabetes Mellitus Type 1, Hx Diabetes Mellitus Type 2. Denies: Hx Hyperthyroidism, Hx Hypothyroidism GI Medical History: Denies: Hx Cirrhosis, Hx Crohn's Disease, Hx Gastroesophageal Reflux Disease, Hx Hepatitis, Hx Ulcerative Colitis Musculoskeletal Medical History: Reports Hx Arthritis - HANDS, Denies Hx Gout, Reports Hx Musculoskeletal Trauma Skin Medical History: Denies Hx Eczema, Denies Hx Psoriasis Psychiatric Medical History: Reports: Hx Bipolar Disorder, Hx Depression, Hx Schizoaffective Disorder Traumatic Medical History: Reports: Hx Fractures Infectious Medical History: Denies: Hx Hepatitis Past Surgical History: Reports: Hx Orthopedic Surgery - left ankle - Immunizations Immunizations up to date: Yes Hx Diphtheria, Pertussis, Tetanus Vaccination: Yes Review of Systems - Review of Systems Notes: CONSTITUTIONAL: No fever, fatigue or weight loss. SKIN: No rash. HENT: No ear pain. Positive for runny nose. CARDIOVASCULAR: Positive for left anterior rib pain. RESPIRATORY: Positive for cough and wheezing. GASTROINTESTINAL: No abdominal pain, nausea, vomiting, bloody stools or diarrhea. MUSCULOSKELETAL: Positive for left shoulder pain. LYMPHATIC: No swollen glands. NEUROLOGIC: No seizures. No headache, focal weakness or sensory changes. Positive for occasional dizziness. Positive for syncopal event. HEMATOLOGIC: No unusual bruising or bleeding. PSYCHIATRIC: No depression or anxiety. Physical Exam - Vital signs Vitals: Temp Pulse Resp BP Pulse Ox 98.0 F 83 16 133/72 H 97 02/11/20 14:15 02/11/20 14:15 02/11/20 14:15 02/11/20 14:15 02/11/20 14:15 - General General appearance: Appears well In distress: None Notes: VITAL SIGNS: Within normal limits. On his normal home nasal cannula O2. GENERAL: No acute distress, non-toxic appearance. HEAD: Normal with no signs of head trauma. EYES: EOMI, conjunctiva normal, no discharge. EARS: Hearing grossly intact. NOSE: Normal. NECK: Normal range of motion, no tenderness, supple, no lymphadenopathy, No adenopathy, no JVD. CHEST: Clear breath sounds bilaterally. Discomfort to palpation of left anterior rib, no bruising. CARDIAC: Regular rate and rhythm. VASCULAR: No Edema. ABDOMEN: Normal and soft with no tenderness GENITOURINARY: Normal, No tenderness MUSCULOSKELETAL: Extremities without clubbing, cyanosis or edema. Strong radial pulse on the left. Range of motion limited due to pain at left shoulder. Discomfort to palpation of the AC joint on the left. Engineering Technician Parking strength intact. No pain at the elbow. Sensation intact. NEUROLOGICAL: Alert and oriented x 3. No focal sensory or strength deficits. Speech normal. Follows commands appropriately. PSYCHIATRIC: Normal Affect, judgement and mood. SKIN: Normal appearance with no rashes or lesions. Course - Re-evaluation Re-evalutation: 02/11/20 17:06 Patient has a rib fracture. No pneumothorax. He also has AC joint separation on the xray that is mild. He will be placed in a sling. I will give him a dose of hydrocodone. I instructed the patient that he needs to call his doctor first thing tomorrow and discuss the blood pressure dosing as he has been getting dizzy with this and this may be the reason why he passed out. I instructed him to take his blood pressure 3 times a day and record it so he can talk to his doctor about this. I instructed him not to take the blood pressure medicine tomorrow morning if his blood pressure is normal. He also recommended Covid te sting as he has been coughing for a while and had a sore throat several days ago. Patient is in agreement. He was told to self isolate until he is called with a negative result. He is very agreeable to this. Patient states he just rechecked his blood sugar and it was 160. He is drinking water in the room. He ambulated without difficulty. He will be referred to orthopedics. INSPECTOR AUTOMATIC TYPEWRITER was checked prior to prescribing narcotics. 02/12/20 01:32 - Vital Signs Vital signs: Temp Pulse Resp BP Pulse Ox 98.0 F 83 15 130/71 H 98 02/11/20 14:15 02/11/20 14:15 02/11/20 17:00 02/11/20 17:13 02/11/20 17:13 - Laboratory Results Result Diagrams: 02/11/20 15:06 02/11/20 15:06 Laboratory Results Interpreted: 02/11/20 02/11/20 02/11/20 15:06 15:06 15:06 WBC 13.2 H RBC 3.67 L Hgb 10.8 L Hct 31.3 L Lymph % (Auto) 7.1 L Absolute Neuts (auto) 11.2 H Seg Neutrophils % 84.4 H Sodium 127.0 L Chloride 88 L Carbon Dioxide 31 H BUN 23 H Glucose 306 H Urine Glucose (UA) >=500 H Critical Laboratory Results Reviewed: No Critical Results - Radiology Results Critical Radiology Results Reviewed: No Critical Results - EKG Interpretation by Me EKG shows normal: Sinus rhythm Rate: Tachycardia Rhythm: NSR When compared to previous EKG there are: No significant change Additional EKG results interpreted by me: 02/11/20 23:28 Sinus tachycardia rate of 105. QTc 445. No acute ST changes. EKG is similar to previous. Discharge - Discharge Clinical Impression: Suspected COVID-19 virus infection Left rib fracture Qualifiers: Encounter type: initial encounter Rib fracture type: single rib Fracture type: closed Qualified Code(s): S22.32XA - Fracture of one rib, left side, initial encounter for closed fracture Acromioclavicular (joint) (ligament) sprain Qualifiers: Encounter type: initial encounter Laterality: left Qualified Code(s): S43.52XA - Sprain of left acromioclavicular joint, initial encounter Syncope Qualifiers: Syncope type: unspecified Qualified Code(s): R55 - Syncope and collapse Condition: Stable Disposition: HOME, SELF-CARE Instructions: COVID-19 Guidance for Persons Under Investigation, AC Joint Sprain ([facility]), Rib Injuries and Fractures ([facility]), Syncopal Episode ([facility]) Additional Instructions: You have a left ninth rib fracture. You also have a likely acromioclavicular joint separation on the left. Please follow-up with orthopedics within 1 week. Please take your blood pressure 3 times a day at breakfast, lunch, and dinner and keep a log of this. You need to call your doctor first thing tomorrow morning. Do not take your blood pressure medicine if your blood pressure is normal as this may be making you dizzy and may have caused the syncopal event today. Return to the ER immediately for any return of symptoms. You have been tested for COVID-19. You must self isolate until you are called with a negative result. Prescriptions: Hydrocodone/Acetaminophen [Hobson 5-325 Tablet] 1 each PO Q8H 5 Days #8 tablet Referrals: BASIM RODRIGEZ PA-C [Primary Care Provider] - Follow up tomorrow MILLER MENDOZA MD [ACTIVE STAFF] - Follow up in 3-5 days
[2020-02-11 17:34] VITALS: BP 130/71
[2020-02-11] MEDS ORDERED: HYDROCODONE/ACETAMINOPHEN 5-325 MG (6 TAB/ER DISP) PO PRN (18:08)
--- NOTE | 2020-02-12 00:23 | EKG REPORT ---
SEVERITY:- NORMAL ECG - SINUS RHYTHM : Confirmed by: Hayley Levi 12-Feb-2020 00:21:45
== END 2020-02-11 18:20 | disposition home or self-care (01) ==
LOC: ER 14:09
DX: S22.32XA Fracture of one rib, left side, initial encounter for closed fracture (principal); S43.52XA Sprain of left acromioclavicular joint, initial encounter; Z20.828 Contact with and (suspected) exposure to other viral communicable diseases; R55 Syncope and collapse; R07.81 Pleurodynia; W18.30XA Fall on same level, unspecified, initial encounter; Y92.009 Unspecified place in unspecified non-institutional (private) residence as the place of occurrence of the external cause; J44.9 Chronic obstructive pulmonary disease, unspecified; I10 Essential (primary) hypertension; E11.9 Type 2 diabetes mellitus without complications; Z79.4 Long term (current) use of insulin; Z99.81 Dependence on supplemental oxygen
CPT/HCPCS: 93005; 99285; 94640; 36415; 85025; 87635; 80053; 81001; 84484; 73060; 71111; 73030; 70450; 93010; C9803

== ENCOUNTER 2020-02-15 10:06 | Emergency (ER) | payer MEDICAID ==
--- NOTE | 2020-02-15 11:14 | ER Document Report ---
ED Medical Screen (RME) - General Chief Complaint: Rib Pain Stated Complaint: LEFT RIB PAIN Time Seen by Provider: 02/15/20 11:05 Primary Care Provider: BASIM RODRIGEZ PA-C [Primary Care Provider] - Follow up as needed TRAVEL OUTSIDE OF THE [place] IN LAST 30 DAYS: No - HPI Notes: 02/15/20 11:12 54-year-old male presents to ED for evaluation of syncopal event occurring this past . Patient recently had his blood pressure medication changed from lisinopril to losartan due to issues with cough. Patient was placed on a high dosage of the medication and notes that he had an episode of syncope where he fell and landed on his head and his left ribs. Patient reports increased difficulty with cough and a red productive sputum. Notes that he does also have a headache and has had increased difficulties with breathing even while using his oxygen. Patient denies any fevers or chills. Denies concern for Covid and was tested for it this past Wednesday. Patient denies any nausea or vomiting. Denies abdominal pain. Denies other complaints. - Related Data Allergies/Adverse Reactions: cortisone Adverse Reaction (Verified 02/11/20 14:19) Past Medical History - Past Medical History Cardiac Medical History: Reports: Hx Hypertension, Hx Peripheral Vascular Disease Denies: Hx Atrial Fibrillation, Hx Congestive Heart Failure, Hx Coronary Artery Disease, Hx Heart Attack, Hx Hypercholesterolemia Pulmonary Medical History: Reports: Hx Asthma, Hx COPD - Has been on chronic prednisone 40mg daily X 2 months, Hx Respiratory Failure Denies: Hx Bronchitis, Hx Pneumonia Neurological Medical History: Denies: Hx Cerebrovascular Accident, Hx Seizures Endocrine Medical History: Reports: Hx Diabetes Mellitus Type 1, Hx Diabetes Mellitus Type 2. Denies: Hx Hyperthyroidism, Hx Hypothyroidism GI Medical History: Denies: Hx Cirrhosis, Hx Crohn's Disease, Hx Gastroesophageal Reflux Disease, Hx Hepatitis, Hx Ulcerative Colitis Musculoskeltal Medical History: Reports Hx Arthritis - HANDS, Denies Hx Gout, Reports Hx Musculoskeletal Trauma Skin Medical History: Denies Hx Eczema, Denies Hx Psoriasis Psychiatric Medical History: Reports: Hx Bipolar Disorder, Hx Depression, Hx Schizoaffective Disorder Traumatic Medical History: Reports: Hx Fractures Infectious Medical History: Denies: Hx Hepatitis Past Surgical History: Reports: Hx Orthopedic Surgery - left ankle - Immunizations Immunizations up to date: Yes Hx Diphtheria, Pertussis, Tetanus Vaccination: Yes Physical Exam - Vital signs Vitals: Temp Pulse Resp BP Pulse Ox 98.9 F 90 18 93/53 L 96 02/15/20 10:12 02/15/20 10:12 02/15/20 10:12 02/15/20 10:12 02/15/20 10:12 General: Alert and oriented x3. Sitting comfortably in a stretcher. Wearing oxygen. Skin: Intact without any jaundice, pallor, or erythema. Warm and dry. HEENT: Normocephalic, atraumatic. Pupils are equal round reactive to light and accommodation. Extraocular movements are intact. TMs without erythema or bulging. Canals are clear. Nares patent without any discharge. Teeth in good condition. Pharynx without erythema, edema, or exudates. No tonsillar enlargement. Uvula is midline. Airway is patent. Neck: Supple with no lymphadenopathy. Full range of motion. Heart: Regular rate and rhythm. S1,S2. No murmurs, rubs, or gallops. Tenderness to palpation along left lateral lower ribs. Lungs: Clear to ausculation bilaterally. No wheezes, rhonchi, rales. Equal chest expansion. No retractions. Abdomen: Soft, nontender to palpation, nondistended. Positive bowel sounds in all 4 quadrants. No hepatosplenomegaly. No masses. No CVA tenderness bilaterally. Neuro: GCS 15. Moving all extremities without discomfort. Psych: Mood and affect appropriate. Course - Vital Signs Vital signs: Temp Pulse Resp BP Pulse Ox 98.9 F 90 18 93/53 L 96 02/15/20 10:12 02/15/20 10:12 02/15/20 10:12 02/15/20 10:12 02/15/20 10:12 Doctor's Discharge - Discharge Referrals: BASIM RODRIGEZ PA-C [Primary Care Provider] - Follow up as needed
[2020-02-15 12:00] LABS: ABSOLUTE EOSINOPHILS # (AUTO) 0.1 10^3/uL (0.0-0.6); ABSOLUTE LYMPHOCYTES (AUTO) 0.7 10^3/uL (0.5-4.7); ABSOLUTE MONOCYTES (AUTO) 0.9 10^3/uL (0.1-1.4); ABSOLUTE NEUT (AUTO) 11.2 10^3/uL (1.7-8.2); BASOPHILS % (AUTO) 0.3 % (0-2); EOSINOPHILS % (AUTO) 0.6 % (0-6); HEMATOCRIT 32.6 % (37.9-51.0); HEMOGLOBIN 11.2 g/dL (13.5-17.0); LYMPHOCYTES % (AUTO) 5.6 % (13-45); MEAN CORPUSCULAR HEMOGLOBIN 29.2 pg (27.0-33.4); MEAN CORPUSCULAR HGB CONC 34.3 g/dL (32.0-36.0); MEAN CORPUSCULAR VOLUME 85 fl (80-97); MONOCYTES % (AUTO) 7.1 % (3-13); PLATELET COUNT 356 10^3/uL (150-450); RED BLOOD COUNT 3.83 10^6/uL (4.35-5.55); RED CELL DISTRIBUTION WIDTH 12.9 % (11.5-14.0); SEGMENTED NEUTROPHILS % (AUTO) 86.4 % (42-78); TOTAL CELLS COUNTED % (AUTO) 100 %; WHITE BLOOD COUNT 12.9 10^3/uL (4.0-10.5)
[2020-02-15 12:05] LABS: INTERNATIONAL RATION (INR) 0.96
[2020-02-15 12:24] LABS: ALBUMIN 4.2 g/dL (3.5-5.0); ALKALINE PHOSPHATASE 105 U/L (38-126); ANION GAP 8 (5-19); ASPARTATE AMINO TRANSFERASE 18 U/L (17-59); BILIRUBIN,DIRECT 0.3 mg/dL (0.0-0.4); BILIRUBIN,TOTAL 0.7 mg/dL (0.2-1.3); BLOOD UREA NITROGEN 23 mg/dL (7-20); CALCIUM 9.4 mg/dL (8.4-10.2); CARBON DIOXIDE 32 mmol/L (22-30); CHLORIDE 88 mmol/L (98-107); CREATINE KINASE 43 U/L (55-170); GLUCOSE 330 mg/dL (75-110); TOTAL PROTEIN 7.1 g/dL (6.3-8.2)
[2020-02-15 12:34] LABS: CREATINE KINASE MB 1.92 ng/mL (<4.55)
[2020-02-15 12:35] LABS: TROPONIN I < 0.012 ng/mL
--- NOTE | 2020-02-15 12:51 | RADIOLOGY REPORT (SQ) ---
EXAM DESCRIPTION: CT HEAD WITHOUT IMAGES COMPLETED DATE/TIME: 02/15/2020 12:37 pm REASON FOR STUDY: fall COMPARISON: 02/11/2020 TECHNIQUE: Axial images acquired through the brain without intravenous contrast. Images reviewed wi th bone, brain and subdural windows. Additional sagittal and coronal reconstructions were generated. Images stored on PACS. All CT scanners at this facility use dose modulation, iterative reconstruction, and/or weight based d osing when appropriate to reduce radiation dose to as low as reasonably achievable (ALARA). [facility]: Dose Right [facility]: CareDose [facility]: Dose Right [facility]: Teradose 4D [facility]: Smart [employer] RADIATION DOSE: CT Rad equipment meets quality standard of care and radiation dose reduction techniq ues were employed. CTDIvol: 53.2 mGy. DLP: 1017 mGy-cm. mGy. LIMITATIONS: None. FINDINGS: VENTRICLES: Normal size and contour. CEREBRUM: No masses. No hemorrhage. No midline shift. No evidence for acute infarction. Normal gra y/white matter differentiation. No areas of low density in the white matter. CEREBELLUM: No masses. No hemorrhage. No alteration of density. No evidence for acute infarction. EXTRAAXIAL SPACES: No fluid collections. No masses. ORBITS AND GLOBE: No intra- or extraconal masses. Normal contour of globe without masses. CALVARIUM: No fracture. PARANASAL SINUSES: No fluid or mucosal thickening. SOFT TISSUES: No mass or hematoma. OTHER: No other significant finding. IMPRESSION: NORMAL BRAIN CT WITHOUT CONTRAST. EVIDENCE OF ACUTE STROKE: NO. COMMENT: Quality ID # [id number]: Final reports with documentation of one or more dose reduction techniques (e.g., Automated exposure control, adjustment of the mA and/or kV according to patient size, use of iterative reconstruction technique) TECHNICAL DOCUMENTATION: JOB ID: [id number] [employer]- All Rights Reserved Reading location - IP/workstation name: [email or web address]
--- NOTE | 2020-02-15 12:52 | RADIOLOGY REPORT (SQ) ---
EXAM DESCRIPTION: CT CERVICAL SPINE WITHOUT IMAGES COMPLETED DATE/TIME: 02/15/2020 12:37 pm REASON FOR STUDY: fall COMPARISON: None. TECHNIQUE: Axial images acquired through the cervical spine without intravenous contrast. Images re viewed with lung, soft tissue and bone windows. Reconstructed coronal and sagittal MPR images review ed. Images stored on PACS. All CT scanners at this facility use dose modulation, iterative reconstruction, and/or weight based d osing when appropriate to reduce radiation dose to as low as reasonably achievable (ALARA). [facility]: Dose Right [facility]: CareDose [facility]: Dose Right [facility]: Teradose 4D [facility]: [email or web address] RADIATION DOSE: CT Rad equipment meets quality standard of care and radiation dose reduction techniq ues were employed. CTDIvol: 19.7 mGy. DLP: 395 mGy-cm. mGy. LIMITATIONS: None. FINDINGS: ALIGNMENT: Anatomic. MINERALIZATION: Normal. VERTEBRAL BODIES: No fractures or dislocation. DISCS: No significant disc disease. FACETS, LATERAL MASSES, POSTERIOR ELEMENTS: No fractures. No dislocation. No acute findings. HARDWARE: None in the spine. VISUALIZED RIBS: No fractures. LUNG APICES AND SOFT TISSUES: No significant or acute findings. OTHER: No other significant finding. IMPRESSION: NO ACUTE OR SIGNIFICANT FINDINGS IN THE CERVICAL SPINE. TECHNICAL DOCUMENTATION: JOB ID: [id number] Quality ID # [id number]: Final reports with documentation of one or more dose reduction techniques (e.g., Au tomated exposure control, adjustment of the mA and/or kV according to patient size, use of iterative reconstruction technique) 2010 [employer]- All Rights Reserved Reading location - IP/workstation name: [email or web address]
[2020-02-15] MEDS ORDERED: MORPHINE SULFATE 10 MG/ML INJ IV ONE (13:11)
--- NOTE | 2020-02-15 13:11 | RADIOLOGY REPORT (SQ) ---
EXAM DESCRIPTION: CT CHEST WITH IMAGES COMPLETED DATE/TIME: 02/15/2020 12:37 pm REASON FOR STUDY: fall COMPARISON: None. TECHNIQUE: CT scan of the chest performed using helical scanning technique with dynamic intravenous contrast injection. Images reviewed with lung, soft tissue and bone windows. Reconstructed coronal and sagittal MPR and MIP images reviewed. All images stored on PACS. All CT scanners at this facility use dose modulation, iterative reconstruction, and/or weight based d osing when appropriate to reduce radiation dose to as low as reasonably achievable (ALARA). [facility]: Dose Right [facility]: CareDose [facility]: Dose Right [facility]: Teradose 4D [facility]: [employer] CONTRAST TYPE AND DOSE: contrast/concentration: Isovue 350.00 mmol/ml; Total Contrast Delivered: 80. 0 ml; Total Saline Delivered: 41.0 ml RENAL FUNCTION: GFR > 60. RADIATION DOSE: CT Rad equipment meets quality standard of care and radiation dose reduction techniq ues were employed. CTDIvol: 14.4 mGy. DLP: 595 mGy-cm. . LIMITATIONS: None. FINDINGS: LUNGS AND PLEURA: Trace left pleural effusion. Minimal basilar atelectasis. No pulmonary contusion or pneumothorax. 6 mm ground-glass nodule in the middle lobe image 42. HILAR AND MEDIASTINAL STRUCTURES: No identified masses or abnormal nodes. HEART AND VASCULAR STRUCTURES: No aneurysm or dissection. No central pulmonary emboli. No pericardi al effusion. HARDWARE: None in the chest. UPPER ABDOMEN: No significant findings. Limited exam. THYROID AND OTHER SOFT TISSUES: No masses. No adenopathy. BONES: Nondisplaced fracture lateral 6th rib. Subcentimeter lytic lesion T7 image 54 of series 602. OTHER: No other significant finding. IMPRESSION: 1. Nondisplaced fracture left 6th rib. No evidence of pulmonary contusion or pneumothorax. 2. 6 mm nodule in the right middle lobe. 3. Small lytic lesion T7 of uncertain significance. Consider follow-up bone scan. TECHNICAL DOCUMENTATION: JOB ID: [id number] Quality ID # [id number]: Final reports with documentation of one or more dose reduction techniques (e.g., Au tomated exposure control, adjustment of the mA and/or kV according to patient size, use of iterative reconstruction technique) 2010 [employer]- All Rights Reserved Reading location - IP/workstation name: [email or web address]
[2020-02-15] MEDS ORDERED: HYDROCODONE/ACETAMINOPHEN 5-325 MG (6 TAB/ER DISP) PO PRN (15:16)
[2020-02-15] MEDS ORDERED: LEVOFLOXACIN 750 MG TABLET PO ONE (15:17)
--- NOTE | 2020-02-15 15:27 | ER Document Report ---
ED General - General Chief Complaint: Rib Pain Stated Complaint: LEFT RIB PAIN Time Seen by Provider: 02/15/20 11:05 Primary Care Provider: ABSIM RODRIGEZ PA-C [Primary Care Provider] - Follow up as needed TRAVEL OUTSIDE OF THE [place] IN LAST 30 DAYS: No - HPI Notes: Patient is a 54-year-old male who presents the emergency department for evaluation. He was seen on Wednesday after syncopal episode. Evidently he was at the kitchen table, had a coughing episode, then had a syncopal episode following. He was brought into the emergency department, found to have a fractured rib. He was sent home with some pain medication. He states that since then he has had an increased cough, is coughing up some frothy pink sputum. He feels more short of breath. He states he was on lisinopril but his was changed to losartan because of the cough. No fevers to his knowledge. - Related Data Allergies/Adverse Reactions: cortisone Adverse Reaction (Verified 02/11/20 14:19) Past Medical History - General Information source: Patient, Relative - Social History Smoking Status: Former Smoker Family History: Reviewed & Not Pertinent, CVA - Past Medical History Cardiac Medical History: Reports: Hx Hypertension, Hx Peripheral Vascular Disease Denies: Hx Atrial Fibrillation, Hx Congestive Heart Failure, Hx Coronary Artery Disease, Hx Heart Attack, Hx Hypercholesterolemia Pulmonary Medical History: Reports: Hx Asthma, Hx COPD - Has been on chronic prednisone 40mg daily X 2 months, Hx Respiratory Failure Denies: Hx Bronchitis, Hx Pneumonia Neurological Medical History: Denies: Hx Cerebrovascular Accident, Hx Seizures Endocrine Medical History: Reports: Hx Diabetes Mellitus Type 1, Hx Diabetes Mellitus Type 2. Denies: Hx Hyperthyroidism, Hx Hypothyroidism GI Medical History: Denies: Hx Cirrhosis, Hx Crohn's Disease, Hx Gastroesophageal Reflux Disease, Hx Hepatitis, Hx Ulcerative Colitis Musculoskeletal Medical History: Reports Hx Arthritis - HANDS, Denies Hx Gout, Reports Hx Musculoskeletal Trauma Skin Medical History: Denies Hx Eczema, Denies Hx Psoriasis Psychiatric Medical History: Reports: Hx Bipolar Disorder, Hx Depression, Hx Schizoaffective Disorder Traumatic Medical History: Reports: Hx Fractures Infectious Medical History: Denies: Hx Hepatitis Past Surgical History: Reports: Hx Orthopedic Surgery - left ankle - Immunizations Immunizations up to date: Yes Hx Diphtheria, Pertussis, Tetanus Vaccination: Yes Review of Systems - Review of Systems Constitutional: No symptoms reported EENT: No symptoms reported Cardiovascular: See HPI Respiratory: See HPI Gastrointestinal: No symptoms reported Genitourinary: No symptoms reported Musculoskeletal: See HPI Skin: No symptoms reported Neurological/Psychological: No symptoms reported Physical Exam - Vital signs Vitals: Temp Pulse Resp BP Pulse Ox 98.9 F 90 18 93/53 L 96 02/15/20 10:12 02/15/20 10:12 02/15/20 10:12 02/15/20 10:12 02/15/20 10:12 - Notes Notes: This is a 54-year-old male who appears much older than his stated age, no acute distress. Vital signs reviewed, please refer to chart. Head is normocephalic, atraumatic. Pupils equal round, reactive to light. Neck is supple without meningismus. Heart is regular rate and rhythm. Lungs reveal diminished breath sounds throughout expiratory wheezes in the left base patient is tender to the left inferior ribs posteriorly and over the midaxillary line, no subcutaneous emphysema is noted.. Abdomen is soft, nontender, normoactive bowel sounds throughout. Extremities without cyanosis, clubbing. Posterior calves are nontender. Peripheral pulses are equal. Skin is warm and dry. Patient is awake, alert, cooperative examiner. Course - Re-evaluation Re-evalutation: 02/15/20 15:27 Patient presents emergency department for evaluation. Laboratory investigations and imaging were ordered. Patient CT scan shows a fractured rib but no clear pneumothorax or pulmonary contusion. He does have a pulmonary nodule as well as a lytic lesion. These findings were communicated to the patient and his , and the importance of follow-up was stressed. Otherwise, I instructed the patient on the use of an incentive spirometer. He states he has one at home but has not been using it. Chest x-ray failed to show any signs of consolidation, but given the fact that this is a COPD oxygen dependent patient who is feeling increasing short of breath, I am inclined to treat for a COPD exacerbation with an antibiotic. He is already on steroids. is hesitant to decrease him from the 10 mg of prednisone he takes daily to the 5 for the next month. I told her to try, but contact his seed service advisor if they needed to go back up to the 10 mg if he was not tolerating it. Otherwise, I will send him home with 6 Vicodin here from the department as he is still struggling with pain. He was also told of his hyperglycemia, they state he has had a diminished appetite. I explained to him that his continued steroid use is probably contributing, as well as the stress from his increased pain. I encouraged them to discuss this with primary care as well. They voiced understanding and will be discharged. - Vital Signs Vital signs: Temp Pulse Resp BP Pulse Ox 98.9 F 90 18 93/53 L 96 02/15/20 10:12 02/15/20 10:12 02/15/20 10:12 02/15/20 10:12 02/15/20 10:12 - Laboratory Results Result Diagrams: 02/15/20 11:41 02/15/20 11:41 Laboratory Results Interpreted: 02/15/20 02/15/20 11:41 11:41 WBC 12.9 H RBC 3.83 L Hgb 11.2 L Hct 32.6 L Lymph % (Auto) 5.6 L Absolute Neuts (auto) 11.2 H Seg Neutrophils % 86.4 H Sodium 127.6 L Chloride 88 L Carbon Dioxide 32 H BUN 23 H Glucose 330 H Creatine Kinase 43 L Critical Laboratory Results Reviewed: No Critical Results - Radiology Results Radiology Results Interpreted: 02/15/20 15:[address] 02/15/20 11:11 IMPRESSION: NO ACUTE OR SIGNIFICANT FINDINGS IN THE CERVICAL SPINE. Chest CT 02/15/20 11:11 IMPRESSION: 1. Nondisplaced fracture left 6th rib. No evidence of pulmonary contusion or pneumothorax. 2. 6 mm nodule in the right middle lobe. 3. Small lytic lesion T7 of uncertain significance. Consider follow-up bone scan. Head CT 02/15/20 11:11 IMPRESSION: NORMAL BRAIN CT WITHOUT CONTRAST. EVIDENCE OF ACUTE STROKE: NO. Critical Radiology Results Reviewed: No Critical Results Discharge - Discharge Clinical Impression: Left rib fracture, COPD exacerbation, Borderline hypotension, Hyperglycemia, Lung nodule, Lytic lesion of vertebrae Condition: Stable Disposition: HOME, SELF-CARE Instructions: Rib Injuries and Fractures ([facility]) Additional Instructions: You do have a small rib fracture, but no obvious underlying injury to your lung. Please take the antibiotic as prescribed. Use the incentive spirometer multiple times daily as discussed. You can take the [place] as needed for severe pain. Please watch for dizziness, drowsiness, constipation with these medications. Your blood pressure here today was borderline, with a systolic of 93. You may need further adjustment of your blood pressure medication. Please discuss this with your primary care provider as soon as possible. CT scan of your chest revealed a lung nodule as well as a lytic lesion of the the seventh thoracic vertebrae. You may need a bone scan or further imaging to characterize this. Please discuss this with your primary care provider in follow-up. If you develop increased difficulty breathing, increased pain, fevers, or any other new or concerning symptoms, please return immediately to the emergency department for reevaluation. Referrals: BASIM RODRIGEZ PA-C [Primary Care Provider] - Follow up as needed
[2020-02-15 15:33] VITALS: BP 105/54
--- NOTE | 2020-02-15 21:29 | EKG REPORT ---
SEVERITY:- NORMAL ECG - SINUS RHYTHM : Confirmed by: Jessica Carpenter MD 15-Feb-2020 21:28:18
== END 2020-02-15 15:45 | disposition home or self-care (01) ==
LOC: ER 10:06
DX: J44.1 Chronic obstructive pulmonary disease with (acute) exacerbation (principal); S22.32XA Fracture of one rib, left side, initial encounter for closed fracture; W07.XXXA Fall from chair, initial encounter; E11.65 Type 2 diabetes mellitus with hyperglycemia; R63.0 Anorexia; E11.51 Type 2 diabetes mellitus with diabetic peripheral angiopathy without gangrene; R05 Cough; R91.1 Solitary pulmonary nodule; M89.9 Disorder of bone, unspecified; I10 Essential (primary) hypertension; Z79.52 Long term (current) use of systemic steroids; Z87.891 Personal history of nicotine dependence
CPT/HCPCS: 93005; 99285; 96374; 36415; 87040; 82553; 82550; 83605; 85025; 85610; 80053; 84484; 70450; 71260; 72125; 93010; J2270; J3490